=== PATIENT | male | born 1960 | race Caucasian/White ===

== ENCOUNTER 2019-07-09 00:16 | Emergency (ER) | payer MEDICARE, SELFPAY ==
[2019-07-09 00:19] VITALS: BP 146/99; PULSE 71; RESP 16; TEMP 36.5; O2SAT 95; BMI 36.6
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
[2019-07-09 01:05] VITALS: RESP 16
[2019-07-09] MEDS: oxyCODONE-APAP 5-325 mg Tablet 2 TAB PO (01:05)
[2019-07-09 01:10] LABS: Add Urine Microscopic? NO
[2019-07-09 01:13] LABS: Bilirubin Urine Neg (NEGATIVE); Blood Urine Neg (Negative); Glucose Urine UA 4+ (Normal); Ketones Urine Negative (Negative); Leukocyte Esterase Urine Negative (Negative); Nitrate Urine Negative (Negative); Protein Urine Neg (Negative); Urine Appearance Clear (CLEAR); Urine Color Yellow (Yellow); Urobilinogen Urine Norm (Negative); pH Urine 5 (5-7)
[2019-07-09] MEDS: ketorolac 60 mg/2 mL INJ IM (02:00)
== END 2019-07-09 02:38 | disposition home or self-care (01) ==
PROVIDERS: Emergency Provider Emergency Medicine; Family Provider Internal Medicine
DX: S32.2XXA Fracture of coccyx, initial encounter for closed fracture (principal); T14.8XXA Other injury of unspecified body region, initial encounter; Z87.891 Personal history of nicotine dependence; V49.3XXA Car occupant (driver) (passenger) injured in unspecified nontraffic accident, initial encounter
CPT/HCPCS: 70450; 71046; 72192; 81003; 96372; 99282; 99283; A9270; J1885

== ENCOUNTER 2020-01-03 08:01 | Emergency (ER) | payer MEDICARE, SELFPAY ==
[2020-01-03 08:05] VITALS: BMI 32.1
[2020-01-03 08:09] VITALS: BP 150/105; PULSE 73; RESP 18; TEMP 36.8; O2SAT 99
--- NOTE | 2020-01-03 08:18 | XR_ITS ---
WS: [id number] PORTABLE CHEST HISTORY: chest pain COMPARISON: 07/09/2019 Lungs are clear and well expanded. No pleural effusion or pneumothorax. Cardiac size: Normal. Mediastinum/Aorta: Normal mediastinum. No osseous abnormality seen. XR/XR chest 1V portable [id number] IMPRESSION: Unremarkable portable chest.
--- NOTE | 2020-01-03 08:18 | ECG_ITS ---
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 Measurements Intervals [place] Rate: 65 P: 18 MS: 165 QRS: 37 QRSD: 106 T: 9 QT: 422 QTc: 442 Interpretive Statements SINUS RHYTHM Compared to ECG 07/22/2018 10:35:58 No significant changes Electronically Signed On 01-03-2020 20:19:34 CDT by Genevieve Priest M.D. [id number]
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
[2020-01-03 08:23] LABS: Basophils % 0.5 %; Eosinophils # 0.1 10^3/uL (0.0-0.8); Eosinophils % 2.2 %; Hematocrit 41.2 % (42.0-52.0); Hemoglobin 13.5 g/dL (11.7-16.6); Lymphocytes # 2.4 10^3/uL (0.8-4.8); Lymphocytes % 40.7 %; Mean Corpuscular HGB Conc 32.8 g/dL (30.0-36.0); Mean Corpuscular Hemoglobin 31.6 pg (28.0-34.0); Mean Corpuscular Volume 96.5 fL (80-94); Mean Platelet Volume 10.9 fL (7.4-10.4); Monocytes # 0.6 10^3/uL (0.2-0.9); Monocytes % 9.7 %; Neutrophils % 46.6 %; Nucleated Red Blood Cells % 0 %; Platelet Count 258 10^3/cmm (130-400); Red Blood Count 4.27 10^6/uL (4.1-5.3); Red Cell Distribution Width 13.2 % (12.1-15.1); White Blood Count 5.8 10^3/uL (4.0-10.0)
[2020-01-03 08:25] VITALS: PULSE 67; RESP 19; O2SAT 99
[2020-01-03] MEDS: LORazepam 2 mg/mL INJ 1 mL 1 MG IVP ×2 (08:25→09:26)
[2020-01-03 08:43] LABS: Alanine Aminotransferase 28 U/L (0-41); Albumin Level 4.7 g/dL (3.5-5.2); Alkaline Phosphatase 51 IU/L (40-130); Anion Gap 15.9 (5-19); Aspartate Amino Transferase 22 U/L (0-40); Blood Urea Nitrogen 33 mg/dL (6-20); Carbon Dioxide 28 mmol/L (22-29); Chloride 96 mmol/L (98-107); Globulin 2.6 g/dL (1.3-4.6); Glomerular Filtration Rate 41.8 mL/min (90-130); Glucose 141 mg/dL (65-115); Osmolality Calculated 282 mOsm/kg (285-295); Potassium 3.9 mmol/L (3.5-5.1); Sodium 136 mmol/L (136-145); Total Bilirubin 0.2 mg/dL (0.15-1.2); Total Protein 7.3 g/dL (6.6-8.7)
[2020-01-03 08:46] LABS: Troponin(5th) Baseline 11 ng/L (0-15)
[2020-01-03 08:49] LABS: Creatinine Clr Calc Pharmacy 64.2024
[2020-01-03] MEDS: sodium chloride 0.9% 1,000 ML 999 ML IV (09:26)
[2020-01-03 09:27] VITALS: BP 142/95; PULSE 75; RESP 20; O2SAT 97
[2020-01-03 10:40] VITALS: BP 130/88; PULSE 73; RESP 19; O2SAT 99
[2020-01-03 11:06] LABS: Troponin 5 2HR 8.52 ng/L (0-15)
[2020-01-03 11:11] LABS: Troponin 5 2HR Delta -2.48 ABS# (0-10)
== END 2020-01-03 10:41 | disposition home or self-care (01) ==
PROVIDERS: Emergency Provider Physician Assistant; Family Provider Internal Medicine; PCP Internal Medicine
DX: F41.9 Anxiety disorder, unspecified (principal); R79.89 Other specified abnormal findings of blood chemistry; Z79.4 Long term (current) use of insulin; E11.9 Type 2 diabetes mellitus without complications; E78.5 Hyperlipidemia, unspecified; I10 Essential (primary) hypertension; Z87.891 Personal history of nicotine dependence
CPT/HCPCS: 12345; 36415; 71045; 80053; 84484; 85025; 93005; 96361; 96374; 96375; 96376; 99283; 99284; J2060; J7030

== ENCOUNTER 2020-01-08 02:44 | Emergency (ER) | payer MEDICARE, SELFPAY ==
[2020-01-08 02:51] VITALS: BP 147/113; PULSE 79; RESP 24; TEMP 36.7; O2SAT 97; BMI 32.1
--- NOTE | 2020-01-08 02:55 | W.ED.ANXIETY ---
HPI - Anxiety General: Chief Complaint: Anxiety Stated Complaint: anxiety Time Seen by Provider: 01/08/20 02:51 History of Present Illness: HPI narrative: 59-year-old male who lost his to cancer 3 weeks ago. He states that since that time, he wakes frequently in the middle the night, and a start, ready to take care of her as he did prior to her . When he realizes she is not there, he has quite a bit of trouble going back to sleep. He has symptoms of chest pressure. Some shortness of breath, and feeling like the martinez are closing in . Tonight his symptoms were worse. He was prescribed 1 mg of lorazepam, but had been taking 2 mg twice daily, and took his last dose at 9 PM tonight. He states that it may have helped a bit, but not much. He continues to experience the same symptoms. He denies significant cough, fever, Cetera. He notes that he vomits at times, and attributes it to his anxiety, and feels better after he vomits. He did that once in the last 24 hours. MD complaint: anxiety, heart racing, shortness of breath and other (chest pressure) Onset (ago): hour(s) Symptoms: dyspnea, chest pain and palpitations Severity: moderate Quality: intermittent Place: home History of similar episodes: Yes Relieving factors: nothing Exacerbating factors: nothing Associated symptoms: Reports chest pain (pressure), nausea, short of breath and vomiting; Deny chills, confusion or headache(s) Review of Systems Const: Denies: chills ENMT: Denies: swelling of lips/tongue or sinus pain Card: Reports: chest pain (pressure) Resp: Reports: dyspnea; Denies: productive cough, non-productive cough or wheezing GI: Reports: nausea and vomiting : Denies: difficulty urinating or hematuria Musc: Denies: joint warmth Skin/Breast: Denies: rash or erythema Neuro: Denies: headache(s) or confusion Psych: Reports: anxiety; Denies: visual hallucinations or auditory hallucinations PFS ED PFSH: Medical History (Updated 01/08/20 @ 05:20 by Edwin Reid DO) Diabetes Diarrhea Diastasis recti Hemorrhoids History of meningitis Hyperlipidemia Hypertension Migraines Positive FIT (fecal immunochemical test) Umbilical hernia Surgical History History of arthroscopic knee surgery Family History Father Hypertension Diabetes Denies family history of Anesthesia complication Bleeding disorder Social History Smoking and tobacco status: former smoker Physical Exam Const: GENERAL APPEARANCE: well developed and anxious ORIENTATION/CONSCIOUSNESS: Yes oriented to person, Yes oriented to place and Yes oriented to time HENMT: COMMON NORMALS: normocephalic, external ears normal and Normal external nose present HEAD & SCALP: normocephalic FACE & SINUS: normal facial exam NOSE: Normal external nose present and No nasal discharge present EXTERNAL EAR: Yes external ears normal Eye: COMMON NORMALS: Equal, round and reactive pupils present, EOMs intact bilaterally and conjunctivae normal EYELID: eyelids normal CONJUNCTIVA: Yes conjunctivae normal PUPIL: Yes Equal, round and reactive pupils present Neck/C-Spine: GENERAL: No tracheal deviation Chest: COMMONS NORMALS: normal inspection of the chest CHEST: No tenderness Resp: COMMON NORMALS: clear to auscultation bilaterally EFFORT & INSPECTION: No tachypneic, No respiratory distress, No retractions, No uses accessory muscles and No tracheal deviation AUSCULTATION: clear to auscultation bilaterally, no rhonchi, no wheezes and lung sounds not diminished Cardio: COMMON NORMALS: regular rate and regular rhythm RATE: regular rate RHYTHM: regular rhythm HEART SOUNDS: no murmurs PERIPHERAL PULSES: radial pulses present GI: INSPECTION: No abdominal distension AUSCULTATION: No Hyperactive bowel sounds present and No Hypoactive bowel sounds present PALPATION: No Guarding due to palpation present (GI) and No Rigid due to palpation PERCUSSION: no dullness to percussion and no tympanic to percussion Neuro: SENSORIUM/ORIENTATION: Yes oriented to person, Yes oriented to place and Yes oriented to time Psych: COMMON NORMALS: Normal thought process present, speech normal, denies hallucinations, denies homicidal ideation and denies suicidal ideation APPEARANCE: Yes grossly normal ACTIVITY/MOTOR BEHAVIOR: Yes appropriate eye contact, No psychomotor agitation and No psychomotor slowing SPEECH: Yes normal speech MOOD & AFFECT: Yes anxious THOUGHT PROCESS: Normal thought process present THOUGHT CONTENT: No Suicidality present, No Homicidality present, No delusions and No Hallucination(s) present ATTENTION/CONCENTRATION: Yes attention grossly intact and Yes concentration grossly intact MEMORY/COGNITION: Yes memory grossly intact INSIGHT: Good insight present (Psych) JUDGEMENT: Good judgement present (Psych) Skin: COMMON NORMALS: no rashes or lesions noted GENERAL SKIN EXAM: no rashes or lesions noted Course Vital Signs: Vital signs: Vital Signs Temperature 98.0 F 01/08/20 02:51 Pulse Rate 64 01/08/20 04:52 Respiratory Rate 16 01/08/20 04:52 Blood Pressure 124/76 01/08/20 04:52 Pulse Oximetry 98 01/08/20 04:52 MDM - Anxiety MDM Narrative: Medical decision making narrative: 59-year-old male with no prior history of coronary disease. His heart score remains of 3. His chest x-ray is negative. His EKG shows a normal sinus rhythm with a rate in the 60s and a normal axis. There are no ST changes. His creatinine is fallen from 1.7-1.3. His troponin remains normal. I, as he, believe that his symptoms are primarily anxiety. There may be an element of PTSD from taking care of his through her sickness. The patient admits to taking 2 mg of Ativan at a time instead of 1. He took his last dose at 9 PM last night. There may be some element of benzodiazepine withdrawal in his presentation this morning. After 2 mg of Ativan IV here, he was still quite anxious. After 3 mg of Haldol here, he is resting comfortably. He has an appointment this coming week with his primary care physician. Hopefully they can talk about treatment of his anxiety level. For now, we will put him on scheduled Atarax, and give him Xanax for breakthrough anxiety. Lab Data: Labs: Lab Results 01/08/20 01/08/20 01/08/20 Range/Units 03:39 04:30 04:30 WBC 8.5 (4.0-10.0) 10^3/ uL RBC 3.99 L (4.1-5.3) 10^6/u L Hgb 12.7 (11.7-16.6) g/dL Hct 38.3 L (42.0-52.0) % MCV 96.0 H (80-94) fL MCH 31.8 (28.0-34.0) pg MCHC 33.2 (30.0-36.0) g/dL RDW 12.9 (12.1-15.1) % Plt Count 228 (130-400) 10^3/c mm MPV 11.2 H (7.4-10.4) fL Neut % (Auto) 51.3 % Lymph % (Auto) 32.5 % [place] % (Auto) 10.7 % Eos % (Auto) 4.0 % Baso % (Auto) 0.7 % Neut # (Auto) 4.34 (1.8-7.7) 10^3/u L Lymph # (Auto) 2.8 (0.8-4.8) 10^3/u L [place] # (Auto) 0.9 (0.2-0.9) 10^3/u L Eos # (Auto) 0.3 (0.0-0.8) 10^3/u L Baso # (Auto) 0.1 (0.0-0.1) 10^3/u L Nucleated RBC % (a uto) 0 % Nucleated RBCs # 0.0 /100WBC Sodium 137 (136-145) mmol/L Potassium 3.5 (3.5-5.1) mmol/L Chloride 101 (98-107) mmol/L Carbon Dioxide 25 (22-29) mmol/L Anion Gap 14.5 (5-19) BUN 29 H (6-20) mg/dL Creatinine 1.3 H (0.7-1.2) mg/dL GFR Calculation 56.9 L (90-130) mL/min Glucose 150 H (65-115) mg/dL POC Glucose 148 (70-110) mg/dL Calculated Osmolal ity 284 L (285-295) mOsm/k g Calcium 9.0 (8.5-10.5) mg/dL Total Bilirubin 0.3 (0.15-1.2) mg/dL AST 26 (0-40) U/L ALT 28 (0-41) U/L Alkaline Phosphata se 60 (40-130) IU/L Troponin T Gen 5 n g/L (0-15) ng/L Total Protein 7.0 (6.6-8.7) g/dL Albumin 4.2 (3.5-5.2) g/dL Globulin 2.8 (1.3-4.6) g/dL 01/08/20 Range/Units 04:30 WBC (4.0-10.0) 10^3/ uL RBC (4.1-5.3) 10^6/u L Hgb (11.7-16.6) g/dL Hct (42.0-52.0) % MCV (80-94) fL MCH (28.0-34.0) pg MCHC (30.0-36.0) g/dL RDW (12.1-15.1) % Plt Count (130-400) 10^3/c mm MPV (7.4-10.4) fL Neut % (Auto) % Lymph % (Auto) % [place] % (Auto) % Eos % (Auto) % Baso % (Auto) % Neut # (Auto) (1.8-7.7) 10^3/u L Lymph # (Auto) (0.8-4.8) 10^3/u L [place] # (Auto) (0.2-0.9) 10^3/u L Eos # (Auto) (0.0-0.8) 10^3/u L Baso # (Auto) (0.0-0.1) 10^3/u L Nucleated RBC % (a uto) % Nucleated RBCs # /100WBC Sodium (136-145) mmol/L Potassium (3.5-5.1) mmol/L Chloride (98-107) mmol/L Carbon Dioxide (22-29) mmol/L Anion Gap (5-19) BUN (6-20) mg/dL Creatinine (0.7-1.2) mg/dL GFR Calculation (90-130) mL/min Glucose (65-115) mg/dL POC Glucose (70-110) mg/dL Calculated Osmolal ity (285-295) mOsm/k g Calcium (8.5-10.5) mg/dL Total Bilirubin (0.15-1.2) mg/dL AST (0-40) U/L ALT (0-41) U/L Alkaline Phosphata se (40-130) IU/L Troponin T Gen 5 n g/L 7 (0-15) ng/L Total Protein (6.6-8.7) g/dL Albumin (3.5-5.2) g/dL Globulin (1.3-4.6) g/dL Discharge Plan Discharge Patient Disposition: Home Clinical Impression: Anxiety Condition: Stable Prescriptions: New hydroxyzine HCl 25 mg tablet 25 mg PO TID Qty: 60 RF: 0 alprazolam 1 mg tablet 1 mg PO TID PRN (Reason: anxiety) Qty: 20 RF: 0 No Action lisinopril 20 mg tablet 20 mg PO BID RF: 0 Farxiga 10 mg tablet 10 mg PO DAILY RF: 0 Trulicity 1.5 mg/0.5 mL pen injector 1.5 mg SUBCUT Q7D RF: 0 chlorthalidone 25 mg tablet 25 mg PO DAILY RF: 0 diltiazem HCl 240 mg capsule,ext.rel 24h degradable 480 mg PO DAILY RF: 0 carvedilol 25 mg tablet 50 mg PO BID RF: 0 hydralazine 25 mg tablet 25 mg PO BID RF: 0 atorvastatin 80 mg tablet 80 mg PO DAILY RF: 0 Multiple Vitamins Tablet 1 tab PO DAILY RF: 0 Protonix 40 mg Tablet,Delayed Release (Dr/Ec) 40 mg PO DAILY RF: 0 ibuprofen 200 mg Tablet 600 mg PO PRN RF: 0 albuterol sulfate 90 mcg/actuation HFA aerosol inhaler 2 puff INHALATION Q4H PRN (Reason: Shortness Of Breath) RF: 0 Ibuprofen PM 200-38 mg Tablet 3 tab PO BEDTIME PRN (Reason: unknown) RF: 0 melatonin 10 mg Tablet 30 mg PO BEDTIME RF: 0 Fish Oil 1 cap PO DAILY RF: 0 Ativan 1 mg tablet 1 mg PO Q8H PRN (Reason: anxiety) Qty: 20 RF: 0 Discharge Orders: Discharge Order (Routine); Ordered 01/08/20 Ordered By: Edwin Reid Referrals: BHAVANA HILARIO DO [Primary Care Provider] - 1-3 days Discharge Diet: Usual diet Discharge Activity: Increase activity as tolerated Patient Instructions: Anxiety (ED) Activity Restrictions/Additional Instructions: Return for worsening symptoms despite treatment. Take the hydroxyzine 3 times daily scheduled. You may take the alprazolam as needed for breakthrough anxiety, especially at night. See your doctor this coming week as scheduled for follow-up. Coding Level of Care Code ED Enrollment Clerk for [facility] Fwd Exam Comprehensive
--- NOTE | 2020-01-08 03:12 | XRR_ITS ---
PROCEDURE INFORMATION: Exam: XR Chest, 1 View Exam date and time: 01/08/2020 3:25 AM Age: 59 years old Clinical indication: Shortness of breath; Additional info: SOB TECHNIQUE: Imaging protocol: XR of the chest Views: 1 view. COMPARISON: CR XR chest 1V portable [id number] 01/03/2020 8:24 AM FINDINGS: Lungs: Unremarkable. No consolidation. Pleural space: Unremarkable. No pleural effusion. No pneumothorax. Heart/Mediastinum: Unremarkable. No cardiomegaly. Bones/joints: Unremarkable. XR/XR chest 1V portable [id number] IMPRESSION: No acute findings.
--- NOTE | 2020-01-08 03:14 | ECG_ITS ---
[facility] Test Date: 2020-01-08 Pat Name: Milan Hua Department: Room: Gender: Male Global Program Director: : 1960 Requested By: Edwin Suero Order Number: [id number] Elliott MD: Onofre Crawford M.D. Measurements Intervals [place] Rate: 73 P: 49 AK: 169 QRS: 39 QRSD: 109 T: 35 QT: 414 QTc: 459 Interpretive Statements SINUS RHYTHM Compared to ECG 01/03/2020 08:08:37 No significant changes Electronically Signed On 01-08-2020 11:56:40 CDT by Onofre Crawford M.D. [id number]
[2020-01-08 03:42] LABS: Glucose Point of Care 148 mg/dL (70-110)
[2020-01-08] MEDS: LORazepam 2 mg/mL INJ 1 mL IVP (03:43)
[2020-01-08] MEDS: ondansetron 2 mg/ML SDV 2 mL 4 MG IVP (04:00)
[2020-01-08 04:39] LABS: Basophils # 0.1 10^3/uL (0.0-0.1); Basophils % 0.7 %; Eosinophils # 0.3 10^3/uL (0.0-0.8); Hematocrit 38.3 % (42.0-52.0); Hemoglobin 12.7 g/dL (11.7-16.6); Lymphocytes # 2.8 10^3/uL (0.8-4.8); Lymphocytes % 32.5 %; Mean Corpuscular HGB Conc 33.2 g/dL (30.0-36.0); Mean Corpuscular Hemoglobin 31.8 pg (28.0-34.0); Mean Platelet Volume 11.2 fL (7.4-10.4); Monocytes # 0.9 10^3/uL (0.2-0.9); Monocytes % 10.7 %; Neutrophils # 4.34 10^3/uL (1.8-7.7); Neutrophils % 51.3 %; Nucleated Red Blood Cells % 0 %; Platelet Count 228 10^3/cmm (130-400); Red Blood Count 3.99 10^6/uL (4.1-5.3); Red Cell Distribution Width 12.9 % (12.1-15.1); White Blood Count 8.5 10^3/uL (4.0-10.0)
[2020-01-08] MEDS: haloperidol inj 5 mg/mL INJ 1 mL 3 MG IVP (04:44)
[2020-01-08 04:52] VITALS: BP 124/76; PULSE 64; RESP 16; O2SAT 98
[2020-01-08 04:57] LABS: Alanine Aminotransferase 28 U/L (0-41); Albumin Level 4.2 g/dL (3.5-5.2); Alkaline Phosphatase 60 IU/L (40-130); Anion Gap 14.5 (5-19); Aspartate Amino Transferase 26 U/L (0-40); Blood Urea Nitrogen 29 mg/dL (6-20); Carbon Dioxide 25 mmol/L (22-29); Chloride 101 mmol/L (98-107); Globulin 2.8 g/dL (1.3-4.6); Glomerular Filtration Rate 56.9 mL/min (90-130); Glucose 150 mg/dL (65-115); Osmolality Calculated 284 mOsm/kg (285-295); Potassium 3.5 mmol/L (3.5-5.1); Sodium 137 mmol/L (136-145); Total Bilirubin 0.3 mg/dL (0.15-1.2)
[2020-01-08 05:11] LABS: Troponin T (5th) Once 7 ng/L (0-15)
--- NOTE | 2020-01-08 05:24 | PC.NURSE ---
Pt resting comfortable at this time
== END 2020-01-08 06:01 | disposition home or self-care (01) ==
PROVIDERS: Emergency Provider Emergency Medicine; PCP Internal Medicine
DX: F41.9 Anxiety disorder, unspecified (principal); Z79.4 Long term (current) use of insulin; E11.9 Type 2 diabetes mellitus without complications; E78.5 Hyperlipidemia, unspecified; I10 Essential (primary) hypertension; Z87.891 Personal history of nicotine dependence
CPT/HCPCS: 12345; 36416; 71045; 80053; 82962; 84484; 85025; 93005; 96374; 96375; 99282; 99283; J1630; J2060; J2405

== ENCOUNTER 2020-10-19 11:37 | Emergency (ER) | payer MEDICARE, SELFPAY ==
--- NOTE | 2020-10-19 | XRR_ITS ---
Ordering Provider/Ordering MD: Bud Whitney MD Date of Service: 10/19/20 Procedure(s): XR pelvis 1-2V* [id number] Accession Number(s): [id number] Report Number: [id number] PROCEDURE INFORMATION: Exam: XR Pelvis Exam date and time: 10/19/2020 12:33 PM Age: 60 years old Clinical indication: Injury or trauma; Fall; Blunt trauma (contusions or hematomas); Right; Hip TECHNIQUE: Imaging protocol: XR pelvis. Views: 1 or 2 view. COMPARISON: CR XR hip RT 2-3V wo/w pel* [id number] 10/19/2020 12:43 PM FINDINGS: Bones/joints: Unremarkable. No acute fracture. Soft tissues: Unremarkable. Vasculature: Moderate calcified peripheral vascular disease. XR/XR pelvis 1-2V* [id number] IMPRESSION: 1. No acute findings. 2. If pain persists, CT may be helpful to rule out occult pathology if clinically indicated. Dictated By: Tuan Otto MD Signed By: Tuan Otto MD Signed Date/Time: 10/19/20 1402 DD/ 1400 [facility]
[2020-10-19 11:56] VITALS: BP 112/72; PULSE 73; RESP 18; TEMP 36.2; O2SAT 96; BMI 30.8
--- NOTE | 2020-10-19 12:01 | XRR_ITS ---
PROCEDURE INFORMATION: Exam: XR Right Hip Exam date and time: 10/19/2020 12:33 PM Age: 60 years old Clinical indication: Pain and injury or trauma; Fall; Blunt trauma (contusions or hematomas); Hip pain; Right hip TECHNIQUE: Imaging protocol: XR Right hip. Views: 2 or 3 views hip with pelvis when performed. COMPARISON: CT pelvis wo con [id number] 07/09/2019 1:37 AM FINDINGS: Bones/joints: No fracture or dislocation. Patent SI joints. Soft tissues: No acute finding. Vasculature: Arterial calcifications. XR/XR hip RT 2-3V wo/w pel* [id number] IMPRESSION: No fracture.
--- NOTE | 2020-10-19 12:01 | XRR_ITS ---
PROCEDURE INFORMATION: Exam: XR Sacrum and Coccyx, 2 or More Views Exam date and time: 10/19/2020 12:33 PM Age: 60 years old Clinical indication: Injury or trauma; Fall; Blunt trauma (contusions or hematomas) TECHNIQUE: Imaging protocol: XR of the sacrum and coccyx, 2 or more views. COMPARISON: CR (PELVIS, ) 10/19/2020 12:43 PM FINDINGS: Bones/joints: Normal. No acute fracture. Soft tissues: Normal. XR/XR sacrum coccyx min 2V [id number] IMPRESSION: No acute findings.
--- NOTE | 2020-10-19 12:01 | XRR_ITS ---
PROCEDURE INFORMATION: Exam: XR Right Femur Exam date and time: 10/19/2020 12:33 PM Age: 60 years old Clinical indication: Injury or trauma; Fall; Blunt trauma; Thigh or upper leg; Right TECHNIQUE: Imaging protocol: XR Right femur. Views: 2 views. Distal femur not visualized on these films. Distal femur evaluated on right knee films of the same day.. COMPARISON: No relevant prior studies available. FINDINGS: Bones/joints: Distal femur evaluated on right knee views of the same day. Soft tissues: Unremarkable. Vasculature: Moderate calcified peripheral vascular disease. XR/XR femur RT min 2V* [id number] IMPRESSION: 1. Moderate calcified peripheral vascular disease. 2. Distal femur evaluated on right knee views of the same day.
--- NOTE | 2020-10-19 12:01 | XRR_ITS ---
PROCEDURE INFORMATION: Exam: XR Right Knee Exam date and time: 10/19/2020 12:33 PM Age: 60 years old Clinical indication: Injury or trauma; Fall; Blunt trauma; Knee; Right TECHNIQUE: Imaging protocol: XR Right knee. Views: 3 views. COMPARISON: No relevant prior studies available. FINDINGS: Bones/joints: Mild lateral knee compartment primary osteoarthritis. 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 Soft tissues: Normal. Vasculature: Severe calcified peripheral vascular disease. XR/XR knee RT 3V* [id number] IMPRESSION: No acute findings.
--- NOTE | 2020-10-19 12:01 | XRR_ITS ---
PROCEDURE INFORMATION: Exam: XR Pelvis Exam date and time: 10/19/2020 12:33 PM Age: 60 years old Clinical indication: Injury or trauma; Fall; Blunt trauma (contusions or hematomas); Right; Hip TECHNIQUE: Imaging protocol: XR pelvis. Views: 1 or 2 view. COMPARISON: CR XR hip RT 2-3V wo/w pel* [id number] 10/19/2020 12:43 PM FINDINGS: Bones/joints: Unremarkable. No acute fracture. Soft tissues: Unremarkable. Vasculature: Moderate calcified peripheral vascular disease.
--- NOTE | 2020-10-19 12:01 | XRR_ITS ---
PROCEDURE INFORMATION: Exam: XR Thoracic Spine Exam date and time: 10/19/2020 12:33 PM Age: 60 years old Clinical indication: Injury or trauma; Fall; Blunt trauma (contusions or hematomas) TECHNIQUE: Imaging protocol: XR of the thoracic spine. Views: 3 views. COMPARISON: No relevant prior studies available. FINDINGS: Bones/joints: Mild thoracic spondylosis. Soft tissues: Unremarkable. Vasculature: Calcification of the thoracic aorta and/or great vessels consistent with atherosclerotic vessel disease. XR/XR thoracic spine 3V* [id number] IMPRESSION: No acute findings.
--- NOTE | 2020-10-19 12:02 | XRR_ITS ---
PROCEDURE INFORMATION: Exam: XR Lumbosacral Spine Exam date and time: 10/19/2020 12:33 PM Age: 60 years old Clinical indication: Injury or trauma; Fall; Blunt trauma (contusions or hematomas) TECHNIQUE: Imaging protocol: XR of the lumbosacral spine. Views: 2 or 3 views. COMPARISON: CT pelvis [facility] [id number] 07/09/2019 1:37 AM FINDINGS: Bones/joints: Mild lower thoracic spondylosis. Soft tissues: Unremarkable. Vasculature: Calcification of the abdominal aorta and/or iliac arteries consistent with atherosclerotic vessel disease. XR/XR lumbar spine 2-3V* [id number] IMPRESSION: No acute findings.
[2020-10-19 12:03] VITALS: RESP 15
--- NOTE | 2020-10-19 12:03 | XRR_ITS ---
PROCEDURE INFORMATION: Exam: XR Chest Exam date and time: 10/19/2020 12:33 PM Age: 60 years old Clinical indication: Injury or trauma; Fall; Blunt trauma (contusions or hematomas); Additional info: Fall, right sided pain TECHNIQUE: Imaging protocol: XR of the chest. Views: 1 view. COMPARISON: CR XR chest 1V portable [id number] 01/08/2020 3:18 AM FINDINGS: Lungs: Unremarkable. No consolidation. Pleural spaces: Unremarkable. No pleural effusion. No pneumothorax. Heart/Mediastinum: Unremarkable. No cardiomegaly. Bones/joints: Moderate thoracic spondylosis. XR/XR chest 1V portable [id number] IMPRESSION: No acute findings.
--- NOTE | 2020-10-19 12:03 | XRR_ITS ---
PROCEDURE INFORMATION: Exam: XR Right Ribs Exam date and time: 10/19/2020 12:33 PM Age: 60 years old Clinical indication: Injury or trauma; Fall; Rib area; Blunt trauma (contusions or hematomas); Additional info: Right rib pain/ fall TECHNIQUE: Imaging protocol: XR Right ribs. Views: 2 views. COMPARISON: CR XR chest 1V portable [id number] 10/19/2020 12:36 PM FINDINGS: Bones/joints: Mild thoracic spondylosis. Lungs: Stable right calcified hilar nodes and/or mediastinal nodes and/or lung nodules consistent with old granulomatous disease. Soft tissues: Normal. XR/XR ribs RT 2V* [id number] IMPRESSION: No acute findings.
--- NOTE | 2020-10-19 12:05 | W.ED.FALL ---
HPI - Fall General: Chief Complaint: Fall Stated Complaint: back pain/r leg pain s/p fall Time Seen by Provider: 10/19/20 11:57 History of Present Illness: HPI Narrative: The patient is a 60-year-old male who comes in after a fall. He was using a pressure sprayer and slipped and fell on his backside and down 3 steps. He says he said surgery on his right knee before and complains of right knee, thigh, tailbone, right hip, low back, upper back, and right rib pain. He has a small abrasion to his right cheek. He is up-to-date on his tetanus. complaint: fall Fall from: standing Place fall occurred: home Loss of consciousness: None Prolonged down time: no Context: tripped/slipped Severity: moderate Quality: sharp Associated symptoms-after fall: Reports no associated symptoms; Denies abdominal pain, chest pain, confusion, difficulty walking, headache(s) or neck pain Review of Systems General: Reports: 10 or more systems reviewed and unremarkable except in HPI and below Const: Denies: fatigue Eyes: Denies: change in vision, blurry vision or eye redness ENMT: Denies: throat pain, swelling of lips/tongue, ear or mastoid pain or nasal congestion Card: Denies: chest pain, palpitations, irregular heart rhythm, edema, dyspnea on exertion or orthopnea Resp: Denies: dyspnea, productive cough or non-productive cough GI: Denies: abdominal pain, diarrhea or GI cramping : Denies: flank pain, urinary frequency or urinary urgency Musc: Reports: back pain, extremity pain and joint pain; Denies: neck pain, joint redness, limited range of motion or muscle weakness Skin/Breast: Denies: rash, pruritus, erythema, skin pain or skin tenderness Neuro: Denies: headache(s), numbness in extremities, weakness in extremities, sensory changes, difficulty walking, dizziness, confusion or Slurred speech present Psych: Denies: anxiety or depression Endo: Denies: polyuria All/Imm: Denies: urticaria, throat swelling or tongue swelling [facility] ED PFSH: Medical History (Updated 10/19/20 @ 15:01 by Bud Whitney MD) Diabetes Diarrhea Diastasis recti Hemorrhoids History of meningitis Hyperlipidemia Hypertension Migraines Positive FIT (fecal immunochemical test) Umbilical hernia Surgical History History of arthroscopic knee surgery Family History Father Hypertension Diabetes Denies family history of Anesthesia complication Bleeding disorder Social History Smoking and tobacco status: former smoker Physical Exam Const: COMMON NORMALS: no acute distress, average body habitus, patient oriented x3, no limitations, healthy appearing, alert and well nourished GENERAL APPEARANCE: cooperative, comfortable, well kempt and well developed ORIENTATION/CONSCIOUSNESS: Yes awake, Yes oriented to person, Yes oriented to place and Yes oriented to time HENMT: COMMON NORMALS: normocephalic, external ears normal and Normal external nose present HEAD & SCALP: normal to inspection and normocephalic NOSE: Normal external nose present EXTERNAL EAR: Yes external ears normal MOUTH: Normal oral and palatal mucosa present THROAT: posterior oropharynx normal Eye: COMMON NORMALS: Equal, round and reactive pupils present and EOMs intact bilaterally GENERAL EYE: appearance normal, both eyes and all related structures PUPIL: Yes Equal, round and reactive pupils present Neck/C-Spine: COMMON NORMALS: full ROM, no lymphadenopathy, no meningeal signs and no JVD GENERAL: Yes normal visual inspection Lymph: LYMPHATIC: no lymphadenopathy noted Chest: COMMONS NORMALS: normal inspection of the chest and normal palpation of entire chest wall Resp: COMMON NORMALS: normal respiratory effort, No retractions, No use of accessory muscles, clear to auscultation bilaterally and percussion normal EFFORT & INSPECTION: Yes able to speak in complete sentences AUSCULTATION: clear to auscultation bilaterally PERCUSSION: percussion normal Cardio: COMMON NORMALS: no JVD, regular rate, regular rhythm, S1 normal heart sound present, S2 normal heart sound present and Peripheral pulses 2+ throughout RATE: regular rate RHYTHM: regular rhythm HEART SOUNDS: S1 normal heart sound present and S2 normal heart sound present PERIPHERAL PULSES: Peripheral pulses 2+ throughout GI: COMMON NORMALS: Normal to inspection, nondistended, normoactive bowel sounds present, Soft to palpation, non-tender and no masses INSPECTION: Yes normal to inspection PALPATION: Yes Soft to palpation : COMMON NORMALS: Yes no CVA tenderness BLADDER/KIDNEY EXAM: Yes no CVA tenderness Back/Pelvis: COMMON NORMALS: no CVA tenderness, thoracic and lumbar spine normal to inspection, no thoracic nor lumbar tenderness and thoraco-lumbar ROM normal OTHER: Patient has tenderness to his coccyx, left hip, lumbar paraspinal musculature, no significant bony tenderness. He also has thoracic paraspinal muscular tenderness. No cervical tenderness. Extremity: COMMON NORMALS: normal to inspection, full ROM, capillary refill normal, no joint enlargement and no pedal edema NARRATIVE EXTREMITY EXAM: Tenderness to right knee and thigh. Major ligaments intact in the knee. He is walking on it. GENERAL: Yes normal exam except as noted Neuro: COMMON NORMALS: patient oriented x3, CN's II-XII intact bilaterally, moves all extremities, no focal motor deficits, no sensory deficits noted and gait normal SENSORIUM/ORIENTATION: Yes alert, Yes oriented to person, Yes oriented to place and Yes oriented to time MENINGEAL SIGNS: Yes no meningeal signs Psych: COMMON NORMALS: mental status grossly normal, Normal thought process present, cooperative, normal affect and speech normal APPEARANCE: Yes well kempt ATTITUDE: Yes calm SPEECH: Yes normal speech THOUGHT PROCESS: Normal thought process present Skin: COMMON NORMALS: no rashes or lesions noted NARRATIVE SKIN EXAM: small abrasion to right cheek. Superficial GENERAL SKIN EXAM: no rashes or lesions noted Course Vital Signs: Vital signs: Vital Signs Temperature 97.1 F L 10/19/20 11:56 Pulse Rate 73 10/19/20 11:56 Respiratory Rate 15 10/19/20 14:03 Blood Pressure 112/72 10/19/20 11:56 Pulse Oximetry 96 10/19/20 11:56 MDM - Fall MDM Narrative: Medical decision making narrative: The patient came in after a slip and fall while using a pressure sprayer and he slid down a few stairs. X-rays of painful areas were taken and were normal. Did show vascular disease. He is on a statin. Recommended he follow-up with his primary care in a week. ER with worsening symptoms at any time. Discharge Plan Discharge Patient Disposition: Home Clinical Impression: Contusion Condition: Stable Prescriptions: No Action lisinopril 20 mg tablet 20 mg PO BID RF: 0 Farxiga 10 mg tablet 10 mg PO DAILY RF: 0 Trulicity 1.5 mg/0.5 mL pen injector 1.5 mg SUBCUT Q7D RF: 0 chlorthalidone 25 mg tablet 25 mg PO DAILY RF: 0 diltiazem HCl 240 mg capsule,ext.rel 24h degradable 480 mg PO DAILY RF: 0 carvedilol 25 mg tablet 50 mg PO BID RF: 0 hydralazine 25 mg tablet 25 mg PO BID RF: 0 atorvastatin 80 mg tablet 80 mg PO DAILY RF: 0 hydroxyzine HCl 25 mg tablet 25 mg PO TID Qty: 60 RF: 0 alprazolam 1 mg tablet 1 mg PO TID PRN (Reason: anxiety) Qty: 20 RF: 0 Multiple Vitamins Tablet 1 tab PO DAILY RF: 0 Protonix 40 mg Tablet,Delayed Release (Dr/Ec) 40 mg PO DAILY RF: 0 ibuprofen 200 mg Tablet 600 mg PO PRN RF: 0 albuterol sulfate 90 mcg/actuation HFA aerosol inhaler 2 puff INHALATION Q4H PRN (Reason: Shortness Of Breath) RF: 0 Ibuprofen PM 200-38 mg Tablet 3 tab PO BEDTIME PRN (Reason: unknown) RF: 0 melatonin 10 mg Tablet 30 mg PO BEDTIME RF: 0 Fish Oil 1 cap PO DAILY RF: 0 Ativan 1 mg tablet 1 mg PO Q8H PRN (Reason: anxiety) Qty: 20 RF: 0 Discharge Orders: Discharge ED (Routine); Ordered 10/19/20 Ordered By: Bud Whitney Referrals: Nancy Harris DO [Primary Care Provider] - Discharge Diet: Advance as tolerated Discharge Activity: Limit activity as instructed Patient Instructions: Contusion in Adults (ED), Opioid Safety Activity Restrictions/Additional Instructions: You likely have deep bruises from falling. Please take ibuprofen to help with your pain. Follow-up with your primary care physician in a week and get a MRI if you are still in pain of any areas that hurt. Return to the ER with worsening symptoms at any time. Avoid activities likely to injure yourself again and worsen your pain. 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
[2020-10-19 14:03] VITALS: RESP 15
[2020-10-19] MEDS: ketorolac 30 mg/mL INJ IM (14:44)
[2020-10-19 15:10] VITALS: RESP 15
== END 2020-10-19 15:11 | disposition home or self-care (01) ==
PROVIDERS: Emergency Provider Family Medicine; PCP Internal Medicine
DX: M54.9 Dorsalgia, unspecified (principal); E11.9 Type 2 diabetes mellitus without complications; Z79.899 Other long term (current) drug therapy; E78.5 Hyperlipidemia, unspecified; I10 Essential (primary) hypertension; Z87.891 Personal history of nicotine dependence
CPT/HCPCS: 71045; 71100; 72072; 72100; 72170; 72220; 73502; 73552; 73562; 96372; 99283; J1885

== ENCOUNTER → 2020-11-25 10:18 | Outpatient (BNVA) | payer MEDICARE, SELFPAY | PROVIDERS: PCP Internal Medicine; Referring Provider Nurse Practitioner Family; Visit Provider Urology | DX: N52.9 Male erectile dysfunction, unspecified (principal); Z12.5 Encounter for screening for malignant neoplasm of prostate | CPT/HCPCS: 81003; 84403; G0103 ==

== ENCOUNTER 2021-08-20 10:50 | Emergency (ER) | payer MEDICARE, SELFPAY ==
[2021-08-20 11:51] VITALS: BP 159/86; PULSE 78; RESP 15; TEMP 36.7; O2SAT 97; BMI 29.5
--- NOTE | 2021-08-20 13:18 | CTR_ITS ---
PROCEDURE INFORMATION: Exam: CT Abdomen And Pelvis With Contrast Exam date and time: 08/20/2021 3:31 PM Age: 60 years old Clinical indication: Abdominal pain; Additional info: Abdominal pain, n/v and constipated TECHNIQUE: Imaging protocol: Computed tomography of the abdomen and pelvis with contrast. Radiation optimization: All CT scans at this facility use at least one of these dose optimization techniques: automated exposure control; mA and/or kV adjustment per patient size (includes targeted exams where dose is matched to clinical indication); or iterative reconstruction. Contrast material: OMNI 300; Contrast volume: 95 ml; Contrast route: INTRAVENOUS (IV); COMPARISON: CT pelvis wo con [id number] 07/09/2019 1:37 AM RADIATION DOSE METRICS: Total DLP (mGy-cm): 1909.66 FINDINGS: Lungs: Emphysematous changes. Right lower lobe atelectasis. Heart: Cardiomegaly. Liver: Normal. No mass. Gallbladder and bile ducts: Normal. No calcified stones. No ductal dilation. Pancreas: Normal. No ductal dilation. Spleen: Normal. No splenomegaly. Adrenal glands: Normal. No mass. Kidneys and ureters: Normal. No hydronephrosis. Stomach and bowel: Moderate fluid throughout the colon with some mild diffuse wall thickening suggestive of a colitis. Additionally a focal area of narrowing is seen in the mid sigmoid colon perhaps due to nondistention, however, consider correlation with endoscopy to exclude in underlying lesion in this area causing narrowing. Appendix: No evidence of appendicitis. Intraperitoneal space: Unremarkable. No free air. No significant fluid collection. Vasculature: Scattered atherosclerotic calcifications. Lymph nodes: Unremarkable. No enlarged lymph nodes. Urinary bladder: Unremarkable as visualized. Reproductive: Unremarkable as visualized. Bones/joints: Unremarkable. No acute fracture. Soft tissues: Small umbilical hernia containing omentum without bowel or inflammation. CT/CT abdomen pelvis w con* [id number] IMPRESSION: 1. Moderate fluid throughout the colon with some mild diffuse wall thickening suggestive of a colitis. Additionally a focal area of narrowing is seen in the mid sigmoid colon perhaps due to nondistention, however, consider correlation with endoscopy to exclude an underlying lesion in this area causing narrowing. 2. Cardiomegaly. 3. Emphysematous changes. 4. Right lower lobe atelectasis. 5. Small umbilical hernia containing omentum without bowel or inflammation.
--- NOTE | 2021-08-20 13:18 | XR_ITS ---
WS: [id number] XR chest 1V portable [id number] REASON FOR EXAM: cp FINDINGS: The heart and mediastinum are within normal limits. Calcified granulomatous disease in both hemithoraces. No acute pulmonary parenchymal or pleural abnormality. Mild changes of degenerative spondylosis in the mid and lower thoracic spine. Thin needlelike radiopacity overlying the distal left clavicle. XR/XR chest 1V portable [id number] IMPRESSION: No acute abnormality. Soft tissue artifact as above.
--- NOTE | 2021-08-20 13:19 | ECG_ITS ---
[facility] Test Date: 2021-08-20 Pat Name: Milan Hua Department: Room: Gender: Male [employer]: : 1960 Requested By: Pio Ding Order Number: [id number] Gallagher MD: Jerri Hill M.D. Measurements Intervals [place] Rate: 64 P: 55 FL: 136 QRS: 69 QRSD: 105 T: 41 QT: 448 QTc: 464 Interpretive Statements SINUS RHYTHM Compared to ECG 01/08/2020 03:37:36 No significant changes Electronically Signed On 08-20-2021 18:23:12 CDT by Jerri Hill M.D. [email or web address]
--- NOTE | 2021-08-20 13:20 | ED_ITS ---
Documented by User: MELVIN Nieves 08/21/21 07:10 HPI - Abdominal Pain General: Chief Complaint: Abdominal Pain Stated Complaint: abdomen pain Time Seen by Provider: 08/20/21 13:07 History of Present Illness: Patient is a 60-year-old male comes to the ED with abdominal pain. Patient has a past medical history of PTSD, diabetes, hypertension and GERD. Abdominal pain started yesterday morning. Pain is located in the left side of the abdomen and waxes and wanes. He has episodes of really sharp acute pain that he rates a 10 out of 10. He endorses having nausea and vomiting since onset of symptoms. He has a history of constipation and has had similar symptoms like this before when he has been constipated. His last bowel movement was 3 days ago. He states he has given himself a couple enemas and it has not helped. He also reports having some chest pain that started while at rest yesterday as well. He has a history of PTSD and usually has chest pain similar to this with his past episodes. Chest pain started after the abdominal pain continued to get worse. He says he is stressed about this abdominal pain which he thinks is causing the chest pain. Denies any fever, chills, shortness of breath, blood in stool, diarrhea, dysuria or hematuria. Denies any past abdominal surgeries or bowel obstructions. Associated Symptoms: Reports constipation, nausea and vomiting; Denies chills, diarrhea, dysuria, fever(s), hematochezia and hematuria Review of Systems Const: Denies: fever(s), chills or fatigue Eyes: Denies: change in vision or eye discomfort ENMT: Denies: throat pain, odynophagia, nasal discharge or nasal congestion Card: Denies: chest pain, palpitations, edema, swelling of feet/ankles, dyspnea on exertion or orthopnea Resp: Denies: dyspnea, productive cough or non-productive cough GI: Reports: abdominal pain, nausea, vomiting and constipation; Denies: diarrhea or hematochezia : Denies: flank pain, difficulty urinating, dysuria or hematuria Musc: Denies: neck pain, back pain or extremity swelling Skin/Breast: Denies: rash or new lesions Neuro: Denies: headache(s), numbness in extremities or weakness in extremities COUNTS INCLUDE 234 BEDS AT THE [facility] ED PFSH: Medical History Diabetes Diarrhea Diastasis recti Erectile dysfunction Hemorrhoids History of meningitis Hyperlipidemia Hypertension Migraines Positive FIT (fecal immunochemical test) Umbilical hernia Surgical History History of arthroscopic knee surgery Family History Father Hypertension Diabetes Denies family history of Anesthesia complication Bleeding disorder Social History Smoking and tobacco status: current every day smoker Alcohol intake: never Marital status: / Current occupational status: disabled History of recent travel: No Physical Exam Const: COMMON NORMALS: patient oriented x3 and alert GENERAL APPEARANCE: cooperative HENMT: COMMON NORMALS: normocephalic HEAD & SCALP: normocephalic MOUTH: Normal oral and palatal mucosa present THROAT: posterior oropharynx normal and uvula midline Eye: COMMON NORMALS: Equal, round and reactive pupils present PUPIL: Yes Equal, round and reactive pupils present Neck/C-Spine: COMMON NORMALS: supple GENERAL: Yes normal visual inspection Resp: COMMON NORMALS: normal respiratory effort, No retractions, No use of accessory muscles and clear to auscultation bilaterally AUSCULTATION: clear to auscultation bilaterally Cardio: COMMON NORMALS: regular rate, regular rhythm, S1 normal heart sound present, S2 normal heart sound present, No gallops present (Cardio), No clicks present (Cardio), No murmurs present (Cardio) and Peripheral pulses 2+ throughout RATE: regular rate RHYTHM: regular rhythm HEART SOUNDS: S1 normal heart sound present and S2 normal heart sound present PERIPHERAL PULSES: Peripheral pulses 2+ throughout GI: COMMON NORMALS: Normal to inspection, nondistended, normoactive bowel sounds present, Soft to palpation, non-tender and no masses PALPATION: Yes Soft to palpation and Yes Tenderness to palpation present (GI) Details: LLQ and LUQ : COMMON NORMALS: Yes no CVA tenderness BLADDER/KIDNEY EXAM: Yes no CVA tenderness Back/Pelvis: COMMON NORMALS: no CVA tenderness Extremity: COMMON NORMALS: normal to inspection Neuro: COMMON NORMALS: patient oriented x3 SENSORIUM/ORIENTATION: Yes alert GAIT: Yes Normal gait present Skin: GENERAL SKIN EXAM: dry skin Course Vital Signs: Vital signs: Vital Signs Temperature 98.0 F 08/20/21 11:51 Pulse Rate 72 08/20/21 18:55 Respiratory Rate 16 08/20/21 18:55 Blood Pressure 126/70 08/20/21 18:55 Pulse Oximetry 97 08/20/21 18:55 MDM - Abdominal Pain Lab Data I reviewed the patient's lab results. : 08/20/21 14:15 08/20/21 14:15 Labs/Radiology: Radiology Impressions Abdomen/Pelvis CT 08/20/21 13:18 IMPRESSION: 1. Moderate fluid throughout the colon with some mild diffuse wall thickening suggestive of a colitis. Additionally a focal area of narrowing is seen in the mid sigmoid colon perhaps due to nondistention, however, consider correlation with endoscopy to exclude an underlying lesion in this area causing narrowing. 2. Cardiomegaly. 3. Emphysematous changes. 4. Right lower lobe atelectasis. 5. Small umbilical hernia containing omentum without bowel or inflammation. Chest X-Ray 08/20/21 13:18 IMPRESSION: No acute abnormality. Soft tissue artifact as above. Laboratory Results WBC 13.2 10^3/uL (4.0-10.0) H 08/20/21 14:15 RBC 5.10 10^6/uL (4.1-5.3) 08/20/21 14:15 Hgb 15.3 g/dL (11.7-16.6) 08/20/21 14:15 Hct 45.7 % (42.0-52.0) 08/20/21 14:15 MCV 89.6 fl (80-94) 08/20/21 14:15 MCH 30.0 pg (28.0-34.0) 08/20/21 14:15 MCHC 33.5 g/dL (30.0-36.0) 08/20/21 14:15 RDW 12.2 % (12.1-15.1) 08/20/21 14:15 Plt Count 366 10^3/cmm (130-400) 08/20/21 14:15 MPV 10.0 fL (7.4-10.4) 08/20/21 14:15 Neut % (Auto) 72.8 % 08/20/21 14:15 Lymph % (Auto) 16.8 % 08/20/21 14:15 Pepin % (Auto) 9.6 % 08/20/21 14:15 Eos % (Auto) 0.1 % 08/20/21 14:15 Baso % (Auto) 0.3 % 08/20/21 14:15 Neut # (Auto) 9.62 10^3/uL (1.8-7.7) H 08/20/21 14:15 Lymph # (Auto) 2.2 10^3/uL (0.8-4.8) 08/20/21 14:15 Pepin # (Auto) 1.3 10^3/uL (0.2-0.9) H 08/20/21 14:15 Eos # (Auto) 0.0 10^3/uL (0.0-0.8) 08/20/21 14:15 Baso # (Auto) 0.0 10^3/uL (0.0-0.1) 08/20/21 14:15 Nucleated RBC % (auto) 0 % 08/20/21 14:15 Nucleated RBCs # 0.0 /100WBC 08/20/21 14:15 Sodium 135 mmol/L (136-145) L 08/20/21 14:15 Potassium 3.9 mmol/L (3.5-5.1) 08/20/21 14:15 Chloride 95 mmol/L (98-107) L 08/20/21 14:15 Carbon Dioxide 27 mmol/L (22-29) 08/20/21 14:15 Anion Gap 16.9 (5-19) 08/20/21 14:15 BUN 15 mg/dL (6-20) 08/20/21 14:15 Creatinine 0.7 mg/dL (0.7-1.2) 08/20/21 14:15 GFR Calculation 115.8 mL/min (90-130) 08/20/21 14:15 Glucose 135 mg/dL (65-115) H 08/20/21 14:15 Calculated Osmolality 283 mOsm/kg (285-295) L 08/20/21 14:15 Calcium 9.3 mg/dL (8.5-10.5) 08/20/21 14:15 Total Bilirubin 0.7 mg/dL (0.15-1.2) 08/20/21 14:15 AST 13 U/L (0-40) 08/20/21 14:15 ALT 10 U/L (0-41) 08/20/21 14:15 Alkaline Phosphatase 78 IU/L (40-130) 08/20/21 14:15 Troponin T Baseline 9 ng/L (0-15) 08/20/21 14:15 Troponin T 120 Minute 7.67 ng/L (0-15) 08/20/21 16:45 Delta Troponin T -1.33 ABS# (0-10) L 08/20/21 16:45 NT-Pro-B Natriuret Pep 195 pg/mL (0-125) H 08/20/21 14:15 Total Protein 7.2 g/dL (6.6-8.7) 08/20/21 14:15 Albumin 4.6 g/dL (3.5-5.2) 08/20/21 14:15 Globulin 2.6 g/dL (1.3-4.6) 08/20/21 14:15 Lipase 24 U/L (13-60) 08/20/21 14:15 Urine Color Yellow (Yellow) 08/20/21 15:15 Urine Appearance Clear (CLEAR) 08/20/21 15:15 Urine pH 9 (5-7) H 08/20/21 15:15 Ur Specific Rumsey 1.020 (1.005-1.030) 08/20/21 15:15 Urine Protein Neg (Negative) 08/20/21 15:15 Urine Glucose (UA) Norm (Normal) 08/20/21 15:15 Urine Ketones Negative (Negative) 08/20/21 15:15 Urine Blood Neg (Negative) 08/20/21 15:15 Urine Nitrate Negative (Negative) 08/20/21 15:15 Urine Bilirubin Neg (Negative) 08/20/21 15:15 Prot Sulfosalicylic Acd Negative (Negative) 08/20/21 15:15 Urine Urobilinogen Norm mg/dL (Negative) 08/20/21 15:15 Ur Leukocyte Esterase Negative (Negative) 08/20/21 15:15 EKG Data EKG 1: EKG interpretation date: 08/20/21 EKG interpretation time: 13:45 Interpretation: Normal sinus rhythm, 64 bpm, no ST segment elevation or depression seen. EKG 2: EKG interpretation date: 04/06/22 EKG interpretation time: 15:22 Interpretation: Sinus bradycardia, 57 bpm, no ST segment elevation or depression seen. Discharge Plan Discharge Patient Disposition: Home Clinical Impression: Colitis, Stricture of sigmoid colon Condition: Stable Prescriptions: New hydrocodone-acetaminophen 5-325 mg tablet 1 tab PO .q 4-6 PRN (Reason: pain) Qty: 14 0RF metronidazole 500 mg tablet 500 mg PO BID 7 Days Qty: 14 0RF Cipro 500 mg tablet 500 mg PO Q12H Qty: 14 0RF No Action lisinopril 20 mg tablet 20 mg PO BID 0RF Rx Instructions: pt states he is unsure if he is still taking this medication-rx last filled on 10/06/2019 for 90d/s Farxiga 10 mg tablet 10 mg PO DAILY 0RF Trulicity 1.5 mg/0.5 mL pen injector 1.5 mg SUBCUT Q7D 0RF Rx Instructions: pt states he usually takes on wed or chlorthalidone 25 mg tablet 25 mg PO DAILY 0RF diltiazem HCl 240 mg capsule,ext.rel 24h degradable 480 mg PO DAILY 0RF Rx Instructions: pt states for the last 4 days he has only been taking one tab daily carvedilol 25 mg tablet 50 mg PO BID 0RF Rx Instructions: must administer with a meal/food hydralazine 25 mg tablet 25 mg PO BID 0RF atorvastatin 80 mg tablet 80 mg PO DAILY 0RF cholecalciferol (vitamin D3) 1,250 mcg (50,000 unit) capsule PO 0RF turmeric 400 mg capsule PO 0RF valerian root 500 mg capsule 500 mg PO DAILY 0RF sildenafil 100 mg tablet See Rx Instructions .Route .COMPLEX Qty: 20 6RF Rx Instructions: 1/2 TO 1 TAB 1 hour before intercourse, on empty stomach, NO NITROGLYCERIN Multiple Vitamins Tablet 1 tab PO DAILY 0RF Protonix 40 mg Tablet,Delayed Release (Dr/Ec) 40 mg PO DAILY 0RF ibuprofen 200 mg Tablet 600 mg PO PRN 0RF albuterol sulfate 90 mcg/actuation HFA aerosol inhaler 2 puff INHALATION Q4H PRN (Reason: Shortness Of Breath) 0RF Ibuprofen PM 200-38 mg Tablet 3 tab PO BEDTIME PRN (Reason: unknown) 0RF melatonin 10 mg Tablet 30 mg PO BEDTIME 0RF Discharge Orders: Discharge ED (Routine); Ordered 08/20/21 Ordered By: Melissa Mosquear Activity Restrictions/Additional Instructions: As we discussed you need to return to the emergency department for worsening or uncontrollable abdominal pains, repetitive episodes of vomiting, inability to tolerate or hold down your antibiotics, fevers greater than 100.4, severe bloody stools, generally feeling unwell, or any other concerns you may have. Case management should contact you shortly to set you up with a provider to perform your colonoscopy following treatment for your colitis. As we discussed please do a bland liquid diet over the next 48 hours and slowly advance as tolerated. Sign Out Sign Out Data: Patient Sign Out occurred on 08/20/21 at 17:11. Patient's care was discussed, and care was transferred from to MELVIN Reina. Coding Level of Care Code ED Insulator Helper for Chg Fwd Exam Comprehensive Documented by User: MELVIN Reina 08/20/21 18:11 HPI - Abdominal Pain General: Chief Complaint: Abdominal Pain Stated Complaint: abdomen pain Time Seen by Provider: 08/20/21 13:07 COUNTS INCLUDE 234 BEDS AT THE [facility] ED PFSH: Medical History Diabetes Diarrhea Diastasis recti Erectile dysfunction Hemorrhoids History of meningitis Hyperlipidemia Hypertension Migraines Positive FIT (fecal immunochemical test) Umbilical hernia Surgical History History of arthroscopic knee surgery Family History Father Hypertension Diabetes Denies family history of Anesthesia complication Bleeding disorder Social History Smoking and tobacco status: current every day smoker Alcohol intake: never Marital status: / Current occupational status: disabled History of recent travel: No Course Vital Signs: Vital signs: Vital Signs Temperature 98.0 F 08/20/21 11:51 Pulse Rate 72 08/20/21 18:55 Respiratory Rate 16 08/20/21 18:55 Blood Pressure 126/70 08/20/21 18:55 Pulse Oximetry 97 08/20/21 18:55 MDM - Abdominal Pain Medical Decision Making I assumed care from Pio Ding PA-C. Patient is a pleasant 60-year-old male here for left lower abdominal pains. He describes the pain is intermittent intense spasming. CT scan shows colitis. He does have one focal area of narrowing in the mid sigmoid colon-he will need a colonoscopy to rule out underlying lesion following treatment of his colitis. Patient's vital signs are normal. Blood work shows a white count of 13.2. Remainder of blood work and work-up is unremarkable. Pain is managed here and he feels comfortable attempting to treat this at home. He was given IV Cipro/Flagyl and will be sent home with these medications as well as something for pain. Recommend bland liquid diet over the next 48 hours and slowly advancing as tolerated. Case management referral placed to get patient set up with general surgery/Dr. Montague/Dr. Price for colonoscopy. Strict return to ED precautions verbally given to patient. Lab Data : 08/20/21 14:15 08/20/21 14:15 Labs/Radiology: Radiology Impressions Abdomen/Pelvis CT 08/20/21 13:18 IMPRESSION: 1. Moderate fluid throughout the colon with some mild diffuse wall thickening suggestive of a colitis. Additionally a focal area of narrowing is seen in the mid sigmoid colon perhaps due to nondistention, however, consider correlation with endoscopy to exclude an underlying lesion in this area causing narrowing. 2. Cardiomegaly. 3. Emphysematous changes. 4. Right lower lobe atelectasis. 5. Small umbilical hernia containing omentum without bowel or inflammation. Chest X-Ray 08/20/21 13:18 IMPRESSION: No acute abnormality. Soft tissue artifact as above. Laboratory Results WBC 13.2 10^3/uL (4.0-10.0) H 08/20/21 14:15 RBC 5.10 10^6/uL (4.1-5.3) 08/20/21 14:15 Hgb 15.3 g/dL (11.7-16.6) 08/20/21 14:15 Hct 45.7 % (42.0-52.0) 08/20/21 14:15 MCV 89.6 fl (80-94) 08/20/21 14:15 MCH 30.0 pg (28.0-34.0) 08/20/21 14:15 MCHC 33.5 g/dL (30.0-36.0) 08/20/21 14:15 RDW 12.2 % (12.1-15.1) 08/20/21 14:15 Plt Count 366 10^3/cmm (130-400) 08/20/21 14:15 MPV 10.0 fL (7.4-10.4) 08/20/21 14:15 Neut % (Auto) 72.8 % 08/20/21 14:15 Lymph % (Auto) 16.8 % 08/20/21 14:15 Pepin % (Auto) 9.6 % 08/20/21 14:15 Eos % (Auto) 0.1 % 08/20/21 14:15 Baso % (Auto) 0.3 % 08/20/21 14:15 Neut # (Auto) 9.62 10^3/uL (1.8-7.7) H 08/20/21 14:15 Lymph # (Auto) 2.2 10^3/uL (0.8-4.8) 08/20/21 14:15 Pepin # (Auto) 1.3 10^3/uL (0.2-0.9) H 08/20/21 14:15 Eos # (Auto) 0.0 10^3/uL (0.0-0.8) 08/20/21 14:15 Baso # (Auto) 0.0 10^3/uL (0.0-0.1) 08/20/21 14:15 Nucleated RBC % (auto) 0 % 08/20/21 14:15 Nucleated RBCs # 0.0 /100WBC 08/20/21 14:15 Sodium 135 mmol/L (136-145) L 08/20/21 14:15 Potassium 3.9 mmol/L (3.5-5.1) 08/20/21 14:15 Chloride 95 mmol/L (98-107) L 08/20/21 14:15 Carbon Dioxide 27 mmol/L (22-29) 08/20/21 14:15 Anion Gap 16.9 (5-19) 08/20/21 14:15 BUN 15 mg/dL (6-20) 08/20/21 14:15 Creatinine 0.7 mg/dL (0.7-1.2) 08/20/21 14:15 GFR Calculation 115.8 mL/min (90-130) 08/20/21 14:15 Glucose 135 mg/dL (65-115) H 08/20/21 14:15 Calculated Osmolality 283 mOsm/kg (285-295) L 08/20/21 14:15 Calcium 9.3 mg/dL (8.5-10.5) 08/20/21 14:15 Total Bilirubin 0.7 mg/dL (0.15-1.2) 08/20/21 14:15 AST 13 U/L (0-40) 08/20/21 14:15 ALT 10 U/L (0-41) 08/20/21 14:15 Alkaline Phosphatase 78 IU/L (40-130) 08/20/21 14:15 Troponin T Baseline 9 ng/L (0-15) 08/20/21 14:15 Troponin T 120 Minute 7.67 ng/L (0-15) 08/20/21 16:45 Delta Troponin T -1.33 ABS# (0-10) L 08/20/21 16:45 NT-Pro-B Natriuret Pep 195 pg/mL (0-125) H 08/20/21 14:15 Total Protein 7.2 g/dL (6.6-8.7) 08/20/21 14:15 Albumin 4.6 g/dL (3.5-5.2) 08/20/21 14:15 Globulin 2.6 g/dL (1.3-4.6) 08/20/21 14:15 Lipase 24 U/L (13-60) 08/20/21 14:15 Urine Color Yellow (Yellow) 08/20/21 15:15 Urine Appearance Clear (CLEAR) 08/20/21 15:15 Urine pH 9 (5-7) H 08/20/21 15:15 Ur Specific Rumsey 1.020 (1.005-1.030) 08/20/21 15:15 Urine Protein Neg (Negative) 08/20/21 15:15 Urine Glucose (UA) Norm (Normal) 08/20/21 15:15 Urine Ketones Negative (Negative) 08/20/21 15:15 Urine Blood Neg (Negative) 08/20/21 15:15 Urine Nitrate Negative (Negative) 08/20/21 15:15 Urine Bilirubin Neg (Negative) 08/20/21 15:15 Prot Sulfosalicylic Acd Negative (Negative) 08/20/21 15:15 Urine Urobilinogen Norm mg/dL (Negative) 08/20/21 15:15 Ur Leukocyte Esterase Negative (Negative) 08/20/21 15:15 Discharge Plan Discharge Patient Disposition: Home Clinical Impression: Colitis, Stricture of sigmoid colon Condition: Stable Prescriptions: New hydrocodone-acetaminophen 5-325 mg tablet 1 tab PO .q 4-6 PRN (Reason: pain) Qty: 14 0RF metronidazole 500 mg tablet 500 mg PO BID 7 Days Qty: 14 0RF Cipro 500 mg tablet 500 mg PO Q12H Qty: 14 0RF No Action lisinopril 20 mg tablet 20 mg PO BID 0RF Rx Instructions: pt states he is unsure if he is still taking this medication-rx last filled on 10/06/2019 for 90d/s Farxiga 10 mg tablet 10 mg PO DAILY 0RF Trulicity 1.5 mg/0.5 mL pen injector 1.5 mg SUBCUT Q7D 0RF Rx Instructions: pt states he usually takes on wed or chlorthalidone 25 mg tablet 25 mg PO DAILY 0RF diltiazem HCl 240 mg capsule,ext.rel 24h degradable 480 mg PO DAILY 0RF Rx Instructions: pt states for the last 4 days he has only been taking one tab daily carvedilol 25 mg tablet 50 mg PO BID 0RF Rx Instructions: must administer with a meal/food hydralazine 25 mg tablet 25 mg PO BID 0RF atorvastatin 80 mg tablet 80 mg PO DAILY 0RF cholecalciferol (vitamin D3) 1,250 mcg (50,000 unit) capsule PO 0RF turmeric 400 mg capsule PO 0RF valerian root 500 mg capsule 500 mg PO DAILY 0RF sildenafil 100 mg tablet See Rx Instructions .Route .COMPLEX Qty: 20 6RF Rx Instructions: 1/2 TO 1 TAB 1 hour before intercourse, on empty stomach, NO NITROGLYCERIN Multiple Vitamins Tablet 1 tab PO DAILY 0RF Protonix 40 mg Tablet,Delayed Release (Dr/Ec) 40 mg PO DAILY 0RF ibuprofen 200 mg Tablet 600 mg PO PRN 0RF albuterol sulfate 90 mcg/actuation HFA aerosol inhaler 2 puff INHALATION Q4H PRN (Reason: Shortness Of Breath) 0RF Ibuprofen PM 200-38 mg Tablet 3 tab PO BEDTIME PRN (Reason: unknown) 0RF melatonin 10 mg Tablet 30 mg PO BEDTIME 0RF Discharge Orders: Discharge ED (Routine); Ordered 08/20/21 Ordered By: Melissa Mosquera Activity Restrictions/Additional Instructions: As we discussed you need to return to the emergency department for worsening or uncontrollable abdominal pains, repetitive episodes of vomiting, inability to tolerate or hold down your antibiotics, fevers greater than 100.4, severe bloody stools, generally feeling unwell, or any other concerns you may have. Case management should contact you shortly to set you up with a provider to perform your colonoscopy following treatment for your colitis. As we discussed please do a bland liquid diet over the next 48 hours and slowly advance as tolerated. Sign Out Sign Out Data: Patient Sign Out occurred on 08/20/21 at 17:11. Patient's care was discussed, and care was transferred from to MELVIN Reina. Coding Level of Care Code ED Insulator Helper for Chg Fwd Exam Comprehensive Documented by User: Amari Villarreal MD 08/24/21 22:54 HPI - Abdominal Pain General: Chief Complaint: Abdominal Pain Stated Complaint: abdomen pain Time Seen by Provider: 08/20/21 13:07 COUNTS INCLUDE 234 BEDS AT THE [facility] ED PFSH: Medical History Diabetes Diarrhea Diastasis recti Erectile dysfunction Hemorrhoids History of meningitis Hyperlipidemia Hypertension Migraines Positive FIT (fecal immunochemical test) Umbilical hernia Surgical History History of arthroscopic knee surgery Family History Father Hypertension Diabetes Denies family history of Anesthesia complication Bleeding disorder Social History Smoking and tobacco status: current every day smoker Alcohol intake: never Marital status: / Current occupational status: disabled History of recent travel: No Course Vital Signs: Vital signs: Vital Signs Temperature 98.0 F 08/20/21 11:51 Pulse Rate 72 08/20/21 18:55 Respiratory Rate 16 08/20/21 18:55 Blood Pressure 126/70 08/20/21 18:55 Pulse Oximetry 97 08/20/21 18:55 MDM - Abdominal Pain Medical Decision Making I assumed care from Pio Ding PA-C. Patient is a pleasant 60-year-old male here for left lower abdominal pains. He describes the pain is intermittent intense spasming. CT scan shows colitis. He does have one focal area of narrow ing in the mid sigmoid colon-he will need a colonoscopy to rule out underlying lesion following treatment of his colitis. Patient's vital signs are normal. Blood work shows a white count of 13.2. Remainder of blood work and work-up is unremarkable. Pain is managed here and he feels comfortable attempting to treat this at home. He was given IV Cipro/Flagyl and will be sent home with these medications as well as something for pain. Recommend bland liquid diet over the next 48 hours and slowly advancing as tolerated. Case management referral placed to get patient set up with general surgery/Dr. Montague/Dr. Price for colonoscopy. Strict return to ED precautions verbally given to patient. I discussed this case with MELVIN Nieves. I reviewed documentation. Amari Villarreal MD Emergency Medicine at [facility]. Lab Data : 08/20/21 14:15 08/20/21 14:15 Labs/Radiology: Radiology Impressions Abdomen/Pelvis CT 08/20/21 13:18 IMPRESSION: 1. Moderate fluid throughout the colon with some mild diffuse wall thickening suggestive of a colitis. Additionally a focal area of narrowing is seen in the mid sigmoid colon perhaps due to nondistention, however, consider correlation with endoscopy to exclude an underlying lesion in this area causing narrowing. 2. Cardiomegaly. 3. Emphysematous changes. 4. Right lower lobe atelectasis. 5. Small umbilical hernia containing omentum without bowel or inflammation. Chest X-Ray 08/20/21 13:18 IMPRESSION: No acute abnormality. Soft tissue artifact as above. Laboratory Results WBC 13.2 10^3/uL (4.0-10.0) H 08/20/21 14:15 RBC 5.10 10^6/uL (4.1-5.3) 08/20/21 14:15 Hgb 15.3 g/dL (11.7-16.6) 08/20/21 14:15 Hct 45.7 % (42.0-52.0) 08/20/21 14:15 MCV 89.6 fl (80-94) 08/20/21 14:15 MCH 30.0 pg (28.0-34.0) 08/20/21 14:15 MCHC 33.5 g/dL (30.0-36.0) 08/20/21 14:15 RDW 12.2 % (12.1-15.1) 08/20/21 14:15 Plt Count 366 10^3/cmm (130-400) 08/20/21 14:15 MPV 10.0 fL (7.4-10.4) 08/20/21 14:15 Neut % (Auto) 72.8 % 08/20/21 14:15 Lymph % (Auto) 16.8 % 08/20/21 14:15 Pepin % (Auto) 9.6 % 08/20/21 14:15 Eos % (Auto) 0.1 % 08/20/21 14:15 Baso % (Auto) 0.3 % 08/20/21 14:15 Neut # (Auto) 9.62 10^3/uL (1.8-7.7) H 08/20/21 14:15 Lymph # (Auto) 2.2 10^3/uL (0.8-4.8) 08/20/21 14:15 Pepin # (Auto) 1.3 10^3/uL (0.2-0.9) H 08/20/21 14:15 Eos # (Auto) 0.0 10^3/uL (0.0-0.8) 08/20/21 14:15 Baso # (Auto) 0.0 10^3/uL (0.0-0.1) 08/20/21 14:15 Nucleated RBC % (auto) 0 % 08/20/21 14:15 Nucleated RBCs # 0.0 /100WBC 08/20/21 14:15 Sodium 135 mmol/L (136-145) L 08/20/21 14:15 Potassium 3.9 mmol/L (3.5-5.1) 08/20/21 14:15 Chloride 95 mmol/L (98-107) L 08/20/21 14:15 Carbon Dioxide 27 mmol/L (22-29) 08/20/21 14:15 Anion Gap 16.9 (5-19) 08/20/21 14:15 BUN 15 mg/dL (6-20) 08/20/21 14:15 Creatinine 0.7 mg/dL (0.7-1.2) 08/20/21 14:15 GFR Calculation 115.8 mL/min (90-130) 08/20/21 14:15 Glucose 135 mg/dL (65-115) H 08/20/21 14:15 Calculated Osmolality 283 mOsm/kg (285-295) L 08/20/21 14:15 Calcium 9.3 mg/dL (8.5-10.5) 08/20/21 14:15 Total Bilirubin 0.7 mg/dL (0.15-1.2) 08/20/21 14:15 AST 13 U/L (0-40) 08/20/21 14:15 ALT 10 U/L (0-41) 08/20/21 14:15 Alkaline Phosphatase 78 IU/L (40-130) 08/20/21 14:15 Troponin T Baseline 9 ng/L (0-15) 08/20/21 14:15 Troponin T 120 Minute 7.67 ng/L (0-15) 08/20/21 16:45 Delta Troponin T -1.33 ABS# (0-10) L 08/20/21 16:45 NT-Pro-B Natriuret Pep 195 pg/mL (0-125) H 08/20/21 14:15 Total Protein 7.2 g/dL (6.6-8.7) 08/20/21 14:15 Albumin 4.6 g/dL (3.5-5.2) 08/20/21 14:15 Globulin 2.6 g/dL (1.3-4.6) 08/20/21 14:15 Lipase 24 U/L (13-60) 08/20/21 14:15 Urine Color Yellow (Yellow) 08/20/21 15:15 Urine Appearance Clear (CLEAR) 08/20/21 15:15 Urine pH 9 (5-7) H 08/20/21 15:15 Ur Specific Rumsey 1.020 (1.005-1.030) 08/20/21 15:15 Urine Protein Neg (Negative) 08/20/21 15:15 Urine Glucose (UA) Norm (Normal) 08/20/21 15:15 Urine Ketones Negative (Negative) 08/20/21 15:15 Urine Blood Neg (Negative) 08/20/21 15:15 Urine Nitrate Negative (Negative) 08/20/21 15:15 Urine Bilirubin Neg (Negative) 08/20/21 15:15 Prot Sulfosalicylic Acd Negative (Negative) 08/20/21 15:15 Urine Urobilinogen Norm mg/dL (Negative) 08/20/21 15:15 Ur Leukocyte Esterase Negative (Negative) 08/20/21 15:15 Discharge Plan Discharge Patient Disposition: Home Clinical Impression: Colitis, Stricture of sigmoid colon Condition: Stable Prescriptions: New hydrocodone-acetaminophen 5-325 mg tablet 1 tab PO .q 4-6 PRN (Reason: pain) Qty: 14 0RF metronidazole 500 mg tablet 500 mg PO BID 7 Days Qty: 14 0RF Cipro 500 mg tablet 500 mg PO Q12H Qty: 14 0RF No Action lisinopril 20 mg tablet 20 mg PO BID 0RF Rx Instructions: pt states he is unsure if he is still taking this medication-rx last filled on 10/06/2019 for 90d/s Farxiga 10 mg tablet 10 mg PO DAILY 0RF Trulicity 1.5 mg/0.5 mL pen injector 1.5 mg SUBCUT Q7D 0RF Rx Instructions: pt states he usually takes on wed or chlorthalidone 25 mg tablet 25 mg PO DAILY 0RF diltiazem HCl 240 mg capsule,ext.rel 24h degradable 480 mg PO DAILY 0RF Rx Instructions: pt states for the last 4 days he has only been taking one tab daily carvedilol 25 mg tablet 50 mg PO BID 0RF Rx Instructions: must administer with a meal/food hydralazine 25 mg tablet 25 mg PO BID 0RF atorvastatin 80 mg tablet 80 mg PO DAILY 0RF cholecalciferol (vitamin D3) 1,250 mcg (50,000 unit) capsule PO 0RF turmeric 400 mg capsule PO 0RF valerian root 500 mg capsule 500 mg PO DAILY 0RF sildenafil 100 mg tablet See Rx Instructions .Route .COMPLEX Qty: 20 6RF Rx Instructions: 1/2 TO 1 TAB 1 hour before intercourse, on empty stomach, NO NITROGLYCERIN Multiple Vitamins Tablet 1 tab PO DAILY 0RF Protonix 40 mg Tablet,Delayed Release (Dr/Ec) 40 mg PO DAILY 0RF ibuprofen 200 mg Tablet 600 mg PO PRN 0RF albuterol sulfate 90 mcg/actuation HFA aerosol inhaler 2 puff INHALATION Q4H PRN (Reason: Shortness Of Breath) 0RF Ibuprofen PM 200-38 mg Tablet 3 tab PO BEDTIME PRN (Reason: unknown) 0RF melatonin 10 mg Tablet 30 mg PO BEDTIME 0RF Discharge Orders: Discharge ED (Routine); Ordered 08/20/21 Ordered By: Melissa Mosquera Activity Restrictions/Additional Instructions: As we discussed you need to return to the emergency department for worsening or uncontrollable abdominal pains, repetitive episodes of vomiting, inability to tolerate or hold down your antibiotics, fevers greater than 100.4, severe bloody stools, generally feeling unwell, or any other concerns you may have. Case management should contact you shortly to set you up with a provider to perform your colonoscopy following treatment for your colitis. As we discussed please do a bland liquid diet over the next 48 hours and slowly advance as tolerated. Sign Out Sign Out Data: Patient Sign Out occurred on 08/20/21 at 17:11. Patient's care was discussed, and care was transferred from to MELVIN Reina. Coding Level of Care Code ED Insulator Helper for Oralia Fwteri Exam Comprehensive
[2021-08-20 14:38] LABS: Basophils % 0.3 %; Eosinophils % 0.1 %; Hematocrit 45.7 % (42.0-52.0); Hemoglobin 15.3 g/dL (11.7-16.6); Lymphocytes # 2.2 10^3/uL (0.8-4.8); Lymphocytes % 16.8 %; Mean Corpuscular HGB Conc 33.5 g/dL (30.0-36.0); Mean Corpuscular Volume 89.6 fl (80-94); Monocytes # 1.3 10^3/uL (0.2-0.9); Monocytes % 9.6 %; Neutrophils # 9.62 10^3/uL (1.8-7.7); Neutrophils % 72.8 %; Nucleated Red Blood Cells % 0 %; Platelet Count 366 10^3/cmm (130-400); Red Cell Distribution Width 12.2 % (12.1-15.1); White Blood Count 13.2 10^3/uL (4.0-10.0)
[2021-08-20] MEDS: ondansetron 2 mg/ML SDV 2 mL 4 MG IVP (14:43)
[2021-08-20] MEDS: morphine 4 mg/mL SDV 1 mL IVP ×2 (14:43→16:21)
[2021-08-20] MEDS: sodium chloride 0.9% 1,000 ML 999 ML IV (14:46)
[2021-08-20 15:02] LABS: Troponin(5th) Baseline 9 ng/L (0-15)
[2021-08-20 15:09] LABS: Alanine Aminotransferase 10 U/L (0-41); Albumin Level 4.6 g/dL (3.5-5.2); Alkaline Phosphatase 78 IU/L (40-130); Anion Gap 16.9 (5-19); Aspartate Amino Transferase 13 U/L (0-40); Blood Urea Nitrogen 15 mg/dL (6-20); Calcium 9.3 mg/dL (8.5-10.5); Carbon Dioxide 27 mmol/L (22-29); Chloride 95 mmol/L (98-107); Globulin 2.6 g/dL (1.3-4.6); Glomerular Filtration Rate 115.8 mL/min (90-130); Glucose 135 mg/dL (65-115); Lipase 24 U/L (13-60); NT Pro B Type Natriuretic Pept 195 pg/mL (0-125); Osmolality Calculated 283 mOsm/kg (285-295); Potassium 3.9 mmol/L (3.5-5.1); Sodium 135 mmol/L (136-145); Total Bilirubin 0.7 mg/dL (0.15-1.2); Total Protein 7.2 g/dL (6.6-8.7)
--- NOTE | 2021-08-20 15:19 | ECG_ITS ---
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 Measurements Intervals [place] Rate: 57 P: 52 GA: 132 QRS: 60 QRSD: 108 T: 31 QT: 483 QTc: 471 Interpretive Statements SINUS BRADYCARDIA PROLONGED QT INTERVAL Compared to ECG 08/20/2021 13:42:42 Prolonged QT interval now present Sinus rhythm no longer present Electronically Signed On 08-20-2021 18:29:23 CDT by Jerri Hill M.D. [id number]
[2021-08-20] MEDS: iohexol 300 mg/mL 100 mL Btl IV (15:30)
[2021-08-20 16:21] VITALS: RESP 16; O2SAT 97
[2021-08-20 16:51] LABS: Add Urine Microscopic? NO; Charge for UA Resulting for Rev
[2021-08-20 16:54] LABS: Urine Appearance Clear (CLEAR); Urine Color Yellow (Yellow); pH Urine 9 (5-7)
[2021-08-20 16:55] LABS: Bilirubin Urine Neg (Negative); Blood Urine Neg (Negative); Glucose Urine UA Norm (Normal); Ketones Urine Negative (Negative); Leukocyte Esterase Urine Negative (Negative); Nitrate Urine Negative (Negative); Protein Urine Neg (Negative); Sulfosalicylic Acid Urine Negative (Negative); Urobilinogen Urine Norm (Negative)
[2021-08-20 17:30] LABS: Troponin 5 2HR 7.67 ng/L (0-15)
[2021-08-20] MEDS: ciprofloxacin 400 MG/200 ML PREMIX 200 MG IV (17:31)
[2021-08-20] MEDS: metroNIDAZOLE IV 500 MG/100 ML PREMIX 100 MG IV (17:32)
[2021-08-20] MEDS: HYDROmorphone 1 mg/mL INJ 1 mL IVP (17:35)
[2021-08-20 17:50] LABS: Troponin 5 2HR Delta -1.33 ABS# (0-10)
[2021-08-20 18:55] VITALS: BP 126/70; PULSE 72; RESP 16; O2SAT 97
--- NOTE | 2021-08-21 13:24 | DCPLANNER ---
Addendum entered by Tg Stark 09/17/21 18:52: Patient had a follow up appointment scheduled with Dr. Price - patient did attend appointment. Addendum entered by Tg Stark 08/22/21 07:01: Patient has a follow up appointment scheduled for Wednesday, September 17, 2021 at 10:[address] Price at [facility]. Clinic will call patient with appointment information. Original Note: airport manager had message to schedule a follow up appointment for patient with Dr. Price. airport manager sent patients information to the front staff at [facility] for review. Patients information will be printed and reviewed. Clinic will call patient with appointment information.
== END 2021-08-20 18:45 | disposition home or self-care (01) ==
PROVIDERS: Physician Assistant; Emergency Provider Physician Assistant
DX: K56.699 Other intestinal obstruction unspecified as to partial versus complete obstruction (principal); K52.9 Noninfective gastroenteritis and colitis, unspecified; K42.9 Umbilical hernia without obstruction or gangrene; I10 Essential (primary) hypertension; E78.5 Hyperlipidemia, unspecified
CPT/HCPCS: 71045; 74177; 80053; 81003; 83690; 83880; 84484; 85025; 87040; 93005; 96365; 96367; 96375; 96376; 99284; J0744; J1170; J2270; J2405; J7030; Q9967; S0030

== ENCOUNTER 2021-08-25 12:36 | Emergency (ER) | payer MEDICARE, SELFPAY ==
[2021-08-25 12:46] VITALS: BP 160/100; PULSE 79; RESP 18; TEMP 36.9; O2SAT 98; BMI 29.0
--- NOTE | 2021-08-25 12:58 | W.ED.ABDPA2 ---
HPI - Abdominal Pain General: Chief Complaint: Abdominal Pain Stated Complaint: severe abdominal pain Time Seen by Provider: 08/25/21 12:53 Source: patient Mode of arrival: ambulatory Limitations: no limitations History of Present Illness: 60-year-old male presents emergency room with complaint of abdominal pain. He was seen you recently had an enteritis-like. They recommended colonoscopy at a later date he states he still having abdominal discomfort no hematochezia melena hematemesis cough congestion no dysuria urgency or frequency. No pain difficulty breathing no chest pain. MD elicited complaint: abdominal pain Pertinent past history: none Onset (ago): day(s) Pain Consistency: intermittent Location: Periumbilical Severity: moderate Quality: cramping Radiation: none Migration to: no migration Exacerbating factors: nothing Relieving factors: nothing Associated Symptoms: Denies anorexia, belching, bloating, change in bowel habits, change in stool character, chills, coffee ground emesis, constipation, GI cramping, diarrhea, dyspepsia, dysuria, excessive flatus, fever(s), heartburn, hematochezia, hematuria, hematemesis, fecal incontinence, loose stools, melena, nausea, poor appetite, syncope and vomiting Review of Systems Const: Denies: fever(s) or chills Card: Denies: syncope GI: Reports: abdominal pain; Denies: nausea, vomiting, hematemesis, coffee ground emesis, heartburn, diarrhea, constipation, bloating, GI cramping, belching, excessive flatus, fecal incontinence, change in bowel habits, change in stool character, hematochezia or melena : Denies: dysuria or hematuria PFSH ED PFSH: Medical History Diabetes Diarrhea Diastasis recti Erectile dysfunction Hemorrhoids History of meningitis Hyperlipidemia Hypertension Migraines Positive FIT (fecal immunochemical test) Umbilical hernia Surgical History History of arthroscopic knee surgery Family History Father Hypertension Diabetes Denies family history of Anesthesia complication Bleeding disorder Social History Smoking and tobacco status: current every day smoker Alcohol intake: never Marital status: / Current occupational status: disabled History of recent travel: No Physical Exam Const: COMMON NORMALS: no acute distress GENERAL APPEARANCE: cooperative and comfortable ORIENTATION/CONSCIOUSNESS: Yes awake, Yes oriented to person, Yes oriented to place and Yes oriented to time HENMT: COMMON NORMALS: normocephalic, atraumatic and hearing grossly normal bilaterally HEAD & SCALP: normocephalic and atraumatic Neck/C-Spine: COMMON NORMALS: no JVD Resp: COMMON NORMALS: normal respiratory effort, No retractions, No use of accessory muscles and clear to auscultation bilaterally AUSCULTATION: clear to auscultation bilaterally Cardio: COMMON NORMALS: no JVD, regular rate, regular rhythm and No murmurs present (Cardio) RATE: regular rate RHYTHM: regular rhythm GI: COMMON NORMALS: Soft to palpation and No hepatosplenomegaly present AUSCULTATION: Yes normoactive bowel sounds PALPATION: Yes Soft to palpation, No Tenderness to palpation present (GI), No Guarding due to palpation present (GI) and Yes No hepatosplenomegaly present Extremity: COMMON NORMALS: normal to inspection, capillary refill normal, no clubbing, cyanosis or edema, no calf tenderness and no pedal edema Neuro: SENSORIUM/ORIENTATION: Yes oriented to person, Yes oriented to place and Yes oriented to time Skin: COMMON NORMALS: no rashes or lesions noted GENERAL SKIN EXAM: no rashes or lesions noted Course Vital Signs: Vital signs: Vital Signs Temperature 98.5 F 08/25/21 12:46 Pulse Rate 70 08/25/21 15:29 Respiratory Rate 18 08/25/21 15:29 Blood Pressure 155/88 08/25/21 15:29 Pulse Oximetry 98 08/25/21 15:29 MDM - Abdominal Pain Medical Decision Making CT and labs reviewed. Patient has a high-grade obstruction in the colon see dimensions on the CT report and was started on Cipro and Flagyl and the potential that this is infectious however his white count is normal more concerned that this obstruction may be due to carcinoma. Unfortunately we do not have general surgery coverage at our facility today,patient will need to be transferred. We have made arrangements with Dr. Rolle at [facility] in [place]. Medical Records I reviewed the patient's medical records. Lab Data I reviewed the patient's lab results. : 08/25/21 13:35 08/25/21 13:35 Labs/Radiology: Radiology Impressions Abdomen/Pelvis CT 08/25/21 13:20 IMPRESSION: 1. High-grade stricture involving the distal sigmoid colon resulting in a moderate obstruction of the more proximal colon and fecal retention. Stricture extends over length of 4.0 cm. Suspicious for neoplasm until proven otherwise. Potentially this could be a postinflammatory stricture but there is wall thickening and hyperemia. No adjacent lymph nodes. 2. No metastatic lesions in the liver or adrenal glands. Laboratory Results WBC 8.8 10^3/uL (4.0-10.0) 08/25/21 13:35 RBC 5.01 10^6/uL (4.1-5.3) 08/25/21 13:35 Hgb 15.4 g/dL (11.7-16.6) 08/25/21 13:35 Hct 45.8 % (42.0-52.0) 08/25/21 13:35 MCV 91.4 fl (80-94) 08/25/21 13:35 MCH 30.7 pg (28.0-34.0) 08/25/21 13:35 MCHC 33.6 g/dL (30.0-36.0) 08/25/21 13:35 RDW 12.1 % (12.1-15.1) 08/25/21 13:35 Plt Count 332 10^3/cmm (130-400) 08/25/21 13:35 MPV 10.1 fL (7.4-10.4) 08/25/21 13:35 Neut % (Auto) 61.7 % 08/25/21 13:35 Lymph % (Auto) 27.4 % 08/25/21 13:35 [place] % (Auto) 9.0 % 08/25/21 13:35 Eos % (Auto) 0.8 % 08/25/21 13:35 Baso % (Auto) 0.6 % 08/25/21 13:35 Neut # (Auto) 5.42 10^3/uL (1.8-7.7) 08/25/21 13:35 Lymph # (Auto) 2.4 10^3/uL (0.8-4.8) 08/25/21 13:35 [place] # (Auto) 0.8 10^3/uL (0.2-0.9) 08/25/21 13:35 Eos # (Auto) 0.1 10^3/uL (0.0-0.8) 08/25/21 13:35 Baso # (Auto) 0.1 10^3/uL (0.0-0.1) 08/25/21 13:35 Nucleated RBC % (auto) 0 % 08/25/21 13:35 Nucleated RBCs # 0.0 /100WBC 08/25/21 13:35 Sodium 136 mmol/L (136-145) 08/25/21 13:35 Potassium 3.9 mmol/L (3.5-5.1) 08/25/21 13:35 Chloride 100 mmol/L (98-107) 08/25/21 13:35 Carbon Dioxide 24 mmol/L (22-29) 08/25/21 13:35 Anion Gap 15.9 (5-19) 08/25/21 13:35 BUN 8 mg/dL (6-20) 08/25/21 13:35 Creatinine 0.8 mg/dL (0.7-1.2) 08/25/21 13:35 GFR Calculation 99.3 mL/min (90-130) 08/25/21 13:35 Glucose 118 mg/dL (65-115) H 08/25/21 13:35 Calculated Osmolality 281 mOsm/kg (285-295) L 08/25/21 13:35 Lactate 1.3 mmol/L (0.5-2.2) 08/25/21 13:57 Calcium 9.6 mg/dL (8.5-10.5) 08/25/21 13:35 Total Bilirubin 0.3 mg/dL (0.15-1.2) 08/25/21 13:35 AST 19 U/L (0-40) 08/25/21 13:35 ALT 16 U/L (0-41) 08/25/21 13:35 Alkaline Phosphatase 71 IU/L (40-130) 08/25/21 13:35 Total Protein 6.7 g/dL (6.6-8.7) 08/25/21 13:35 Albumin 4.5 g/dL (3.5-5.2) 08/25/21 13:35 Globulin 2.2 g/dL (1.3-4.6) 08/25/21 13:35 Lipase 27 U/L (13-60) 08/25/21 13:35 Urine Color Dark yellow (Yellow) 08/25/21 12:50 Urine Appearance Clear (CLEAR) 08/25/21 12:50 Urine pH 6.5 (5-7) 08/25/21 12:50 Ur Specific [place] 1.010 (1.005-1.030) 08/25/21 12:50 Urine Protein Neg (Negative) 08/25/21 12:50 Urine Glucose (UA) Norm (Normal) 08/25/21 12:50 Urine Ketones 1+ (Negative) H 08/25/21 12:50 Urine Blood Neg (Negative) 08/25/21 12:50 Urine Nitrate Negative (Negative) 08/25/21 12:50 Urine Bilirubin 1+ (Negative) H 08/25/21 12:50 Urine Urobilinogen Norm mg/dL (Negative) 08/25/21 12:50 Ur Leukocyte Esterase Trace (Negative) H 08/25/21 12:50 Urine RBC None /hpf (0-2) 08/25/21 12:50 Urine WBC 0-4 /hpf (0-5) H 08/25/21 12:50 Ur Squamous Epith Cells 0-4 /hpf (0-5) H 08/25/21 12:50 Amorphous Sediment Not Reportable 08/25/21 12:50 Urine Bacteria Trace /hpf (NONE) 08/25/21 12:50 Discharge Plan Discharge Patient Disposition: Xfer Short-Term Hosp Clinical Impression: Stricture of sigmoid colon, Large bowel obstruction Condition: Stable Prescriptions: No Action lisinopril 20 mg tablet 20 mg PO BID 0RF diltiazem HCl 240 mg capsule,ext.rel 24h degradable 480 mg PO DAILY 0RF cholecalciferol (vitamin D3) 1,250 mcg (50,000 unit) capsule 50,000 unit PO DAILY 0RF sildenafil 100 mg tablet See Rx Instructions .Route .COMPLEX Qty: 20 6RF Rx Instructions: 1/2 TO 1 TAB 1 hour before intercourse, on empty stomach, NO NITROGLYCERIN pantoprazole [Protonix] 40 mg Tablet,Delayed Release (Dr/Ec) 40 mg PO DAILY 0RF ibuprofen 200 mg Tablet 600 mg PO PRN 0RF albuterol sulfate 90 mcg/actuation HFA aerosol inhaler 2 puff INHALATION Q4H PRN (Reason: Shortness Of Breath) 0RF Ibuprofen PM 200-38 mg Tablet 3 tab PO BEDTIME PRN (Reason: Pain) 0RF melatonin 10 mg Tablet 30 mg PO BEDTIME 0RF metronidazole 500 mg tablet 500 mg PO BID 7 Days Qty: 14 0RF ciprofloxacin HCl [Cipro] 500 mg tablet 500 mg PO Q12H Qty: 14 0RF simvastatin 20 mg tablet 20 mg PO QPM 0RF sertraline 25 mg tablet 25 mg PO DAILY 0RF hydrochlorothiazide 12.5 mg tablet 12.5 mg PO DAILY 0RF Referrals: Neha Lopez PA-C [Primary Care Provider] - Coding Level of Care Code ED Pump Installation And Servicer for Chg Fwd Exam Comprehensive
--- NOTE | 2021-08-25 13:20 | CT_ITS ---
WS: [id number] CT ABDOMEN AND PELVIS WITH CONTRAST HISTORY: abd pain TECHNIQUE: Imaging performed of the abdomen and pelvis with IV contrast. Single phase imaging of the abdomen. Coronal and sagittal reformats are submitted. All CT scans at [facility] use at [address] one of these dose optimization techniques: automated exposure control; mA and/or kV adjustment per patient size (includes targeted exams where dose is matched to clinical indication); or iterative re construction. IV CONTRAST: Omnipaque 300; 95 mL IV. Oral contrast: No DLP: 1782.36 mGy.cm COMPARISON: 08/20/2021 Lower thorax: Lung bases are clear. Heart is normal size. No hiatal hernia. Liver/biliary system: Normal size with no intrahepatic dilatation. Normal portal vein. Gallbladder: Normal. No gallstones or wall thickening. No pericholecystic fluid. Pancreas: Normal size pancreas and pancreatic duct. No adjacent inflammation. Spleen: Normal size spleen with granulomata. Adrenal glands: Normal. Right kidney: Normal. Left kidney: Mild perinephric stranding. No mass or obstruction. Aorta: Mild atherosclerosis with no aneurysm. Only very mild enhancement on opacification of the prox imal SMA and celiac axis. There is calcified plaque and soft plaque in the proximal SMA. No occlusion identified. Small amount of calcified plaque at the origins of the renal arteries. Lymphadenopathy: None. Free fluid: None. GI tract: Stomach is minimally distended with fluid. No small bowel obstruction. The appendix is norm al. There is moderate fecal retention and constipation. There is more focal colonic dilatation involv ing the descending and sigmoid colon. There is a focal area of stenosis and stricture involving the d istal sigmoid colon this was also described on the prior examination. Highly suspicious for underlyin g neoplasm until proven otherwise. No adjacent lymph node. This high-grade stricture is just anterior to the urinary bladder and the midline. Stricture extends over length of 4.0 cm with mild wall thick ening and hyperemia. Abdominal wall: Fat containing umbilical hernia. Pelvis: Well-distended urinary bladder. Mild prostate gland enlargement. No ascites. No adenopathy. Bones: Unremarkable. CT/CT abdomen pelvis w con* [id number] IMPRESSION: 1. High-grade stricture involving the distal sigmoid colon resulting in a mode rate obstruction of the more proximal colon and fecal retention. Stricture exte nds over length of 4.0 cm. Suspicious for neoplasm until proven otherwise. Pote ntially this could be a postinflammatory stricture but there is wall thickening and hyperemia. No adjacent lymph nodes. 2. No metastatic lesions in the liver or adrenal glands.
[2021-08-25 13:27] LABS: Urine Appearance Clear (CLEAR); Urine Color Dark Yellow (Yellow); pH Urine 6.5 (5-7)
[2021-08-25 13:28] LABS: Add Urine Culture? No; Add Urine Microscopic? YES; Bacteria Urine TRACE /hpf; Bilirubin Urine 1+ (Negative); Blood Urine Neg (Negative); Glucose Urine UA Norm (Normal); Ketones Urine 1+ (Negative); Leukocyte Esterase Urine Trace (Negative); Nitrate Urine Negative (Negative); Protein Urine Neg (Negative); Squamous Epithelial Cell Urine 0-4 /hpf (0-5); Urobilinogen Urine Norm (Negative); WBC Urine 0-4 /hpf (0-5)
[2021-08-25 13:38] VITALS: BP 160/100; PULSE 65; RESP 16; O2SAT 98
[2021-08-25 13:48] LABS: Basophils # 0.1 10^3/uL (0.0-0.1); Basophils % 0.6 %; Eosinophils # 0.1 10^3/uL (0.0-0.8); Eosinophils % 0.8 %; Hematocrit 45.8 % (42.0-52.0); Hemoglobin 15.4 g/dL (11.7-16.6); Lymphocytes # 2.4 10^3/uL (0.8-4.8); Lymphocytes % 27.4 %; Mean Corpuscular HGB Conc 33.6 g/dL (30.0-36.0); Mean Corpuscular Hemoglobin 30.7 pg (28.0-34.0); Mean Corpuscular Volume 91.4 fl (80-94); Mean Platelet Volume 10.1 fL (7.4-10.4); Monocytes # 0.8 10^3/uL (0.2-0.9); Neutrophils # 5.42 10^3/uL (1.8-7.7); Neutrophils % 61.7 %; Nucleated Red Blood Cells % 0 %; Platelet Count 332 10^3/cmm (130-400); Red Blood Count 5.01 10^6/uL (4.1-5.3); Red Cell Distribution Width 12.1 % (12.1-15.1); White Blood Count 8.8 10^3/uL (4.0-10.0)
[2021-08-25 14:11] LABS: Alanine Aminotransferase 16 U/L (0-41); Albumin Level 4.5 g/dL (3.5-5.2); Alkaline Phosphatase 71 IU/L (40-130); Anion Gap 15.9 (5-19); Aspartate Amino Transferase 19 U/L (0-40); Blood Urea Nitrogen 8 mg/dL (6-20); Calcium 9.6 mg/dL (8.5-10.5); Carbon Dioxide 24 mmol/L (22-29); Chloride 100 mmol/L (98-107); Globulin 2.2 g/dL (1.3-4.6); Glomerular Filtration Rate 99.3 mL/min (90-130); Glucose 118 mg/dL (65-115); Lipase 27 U/L (13-60); Osmolality Calculated 281 mOsm/kg (285-295); Potassium 3.9 mmol/L (3.5-5.1); Sodium 136 mmol/L (136-145); Total Bilirubin 0.3 mg/dL (0.15-1.2); Total Protein 6.7 g/dL (6.6-8.7)
[2021-08-25 14:39] LABS: Lactate (Lactic Acid level) 1.3 mmol/L (0.5-2.2)
[2021-08-25] MEDS: iohexol 300 mg/mL 100 mL Btl IV (14:50)
[2021-08-25 15:29] VITALS: BP 155/88; PULSE 70; RESP 18; O2SAT 98
[2021-08-25] MEDS: ondansetron 2 mg/ML SDV 2 mL 4 MG IVP (16:53)
[2021-08-25] MEDS: morphine 4 mg/mL SDV 1 mL 6 MG IVP (16:53)
[2021-08-25] MEDS: metroNIDAZOLE IV 500 MG/100 ML PREMIX 100 MG IV (17:01)
[2021-08-25] MEDS: ciprofloxacin 400 MG/200 ML PREMIX 200 MG IV (17:01)
[2021-08-25] MEDS: sodium chlor 0.9% + KCl 20 mEq 20 MEQ/1,000 ML BAG 125 MEQ IV (18:00)
[2021-08-25 18:01] VITALS: BP 113/92; PULSE 72; RESP 16; O2SAT 97
--- NOTE | 2021-08-25 19:49 | PC.NURSE ---
asked for order for pain medication and got morphine. Pt. refused morphine after drawing up medication , because last time it didn't work.
[2021-08-25] MEDS: HYDROmorphone 1 mg/mL INJ 1 mL IVP (20:00)
[2021-08-25 21:43] VITALS: BP 118/66; PULSE 82; RESP 18; O2SAT 98
[2021-08-26 14:06] LABS: Bacillus cereus group Not Detected (NOT DETECT); Bacillus subtillis group Not Detected (NOT DETECT); Corynebacterium Not Detected (NOT DETECT); Cutibacterium acnes (P.acnes) Not Detected (NOT DETECT); Enterococcus Not Detected (NOT DETECT); Enterococcus faecalis Not Detected (NOT DETECT); Enterococcus faecium Not Detected (NOT DETECT); Lactobacillus species Not Detected (NOT DETECT); Listeria Not Detected (NOT DETECT); Listeria monocytogenes Not Detected (NOT DETECT); Micrococcus Not Detected (NOT DETECT); Pan Candida Not Detected (NOT DETECT); Pan Gram-Negative Not Detected (NOT DETECT); Staphylococcus epidermidis Detected (NOT DETECT); Staphylococcus lugdunensis Not Detected (NOT DETECT); Staphylococcus species Detected (NOT DETECT); Streptococcus agalactiae Not Detected (NOT DETECT); Streptococcus anginosus group Not Detected (NOT DETECT); Streptococcus pneumoniae Not Detected (NOT DETECT); Streptococcus pyogenes Not Detected (NOT DETECT); Streptococcus species Not Detected (NOT DETECT); mecA Detected (NOT DETECT); mecC Not Detected (NOT DETECT)
== END 2021-08-25 21:46 | disposition short-term general hospital (02) ==
PROVIDERS: Emergency Medicine; Emergency Provider Family Medicine; PCP Physician Assistant
DX: K56.699 Other intestinal obstruction unspecified as to partial versus complete obstruction (principal); E11.9 Type 2 diabetes mellitus without complications; I10 Essential (primary) hypertension; E78.5 Hyperlipidemia, unspecified
CPT/HCPCS: 74177; 80053; 81001; 83605; 83690; 85025; 87040; 87150; 87205; 96365; 96366; 96367; 96375; 96376; 99285; J0744; J1170; J2270; J2405; Q9967; S0030

== ENCOUNTER → 2021-09-17 11:22 | Outpatient (BNVA) | payer MEDICARE, SELFPAY | PROVIDERS: PCP Physician Assistant; Visit Provider Internal Medicine | DX: F41.8 Other specified anxiety disorders (principal); C18.9 Malignant neoplasm of colon, unspecified; Z90.49 Acquired absence of other specified parts of digestive tract; R30.0 Dysuria | CPT/HCPCS: 81000 ==

== ENCOUNTER 2021-09-29 06:27 | Day surgery (SDC) | payer MEDICARE, SELFPAY ==
[2021-09-25 13:47] VITALS: BMI 28.0
[2021-09-29 06:50] VITALS: BP 129/84; PULSE 74; RESP 18; TEMP 36.2; O2SAT 98
--- NOTE | 2021-09-29 07:03 | P.ANESASSM_ITS ---
Pre-Anesthetic Assessment Height/Weight: Height 1.88 m Weight 98.883 kg Temp Pulse Resp BP Pulse Ox 97.2 F L 74 18 129/84 98 09/29/21 06:50 09/29/21 06:50 09/29/21 06:50 09/29/21 06:50 09/29/21 06:50 Preop Diagnosis: Known colon cancer Operation Date: 09/29/21 07:30 Proposed Procedures p Colonoscopy 70495/c18.9(Not Applicable) - Aleks Price MD Was Beta Karyn taken within 24 hours: N/A Was Clonidine taken within 24 hours: N/A Last intake: Intake Last Liquid Date 09/28/21 Last Liquid Time 23:00 Last Solid Date 09/28/21 Last Solid Time 16:00 Social Tobacco and No alcohol Exam alert, oriented x 3, clear to auscultation bilaterally and regular rate & rhythm Airway Submandibular: within normal limits Cervical ROM: within normal limits Mallampati: Class II History/ROS No significant history except as noted and No significant complaints Pulmonary None reported CV/HEM None reported None reported Hepatic None reported GI None reported Metabolic Diabetes Mellitus [facility] [place] Lower Back Pain and Osteoarthritis/DJD Neuropsych Anxiety PTSD Anesthetic Plan ASA status: 3 Anesthesia: Anesthesia Evaluation and MAC Risk of > 500 ml blood loss (7ml/kg in children): No Medications/Allergies Home Medications Medication Instructions Recorded Confirmed Last Taken Type lisinopril 20 mg tablet 20 mg PO BID 10/17/19 09/25/21 09/28/21 History albuterol sulfate 90 mcg/actuation 2 puff INHALATION Q4H PRN 01/03/20 09/25/21 Unknown History aerosol inhaler ibuprofen 200 mg tablet 600 mg PO PRN 01/03/20 09/29/21 09/27/21 History melatonin 10 mg tablet 30 mg PO BEDTIME 01/03/20 09/25/21 09/28/21 History pantoprazole 40 mg tablet,delayed 40 mg PO DAILY 01/03/20 09/25/21 09/28/21 History release (Protonix) cholecalciferol (vitamin D3) 1,250 50,000 unit PO .WEEKLY 11/25/20 09/29/21 09/26/21 History mcg (50,000 unit) capsule hydrochlorothiazide 12.5 mg tablet 12.5 mg PO DAILY 0409/25/21 09/28/21 History sertraline 25 mg tablet 25 mg PO DAILY 08/25/21 09/25/21 09/28/21 History simvastatin 20 mg tablet 20 mg PO QPM 08/25/21 09/25/21 09/28/21 History alprazolam 0.25 mg tablet 0.25 mg PO BID PRN #20 tab 09/17/21 09/25/21 09/28/21 Rx oxycodone-acetaminophen 10 mg-325 1 tab PO PRN PRN 09/25/21 09/29/21 09/29/21 History mg tablet Allergies Allergy/AdvReac Type Severity Reaction Status Date / Time metoclopramide [From Reglan] Allergy ADR/ALGY-Pa Verified 09/17/21 10:20 lpitations prochlorperazine Allergy ADR/ALGY-Pa Verified 09/17/21 10:20 [From Compazine] lpitations [facility] Anesthesia Medical History Diabetes Diarrhea Diastasis recti Erectile dysfunction Hemorrhoids History of meningitis Hyperlipidemia Hypertension Migraines Positive FIT (fecal immunochemical test) Umbilical hernia Surgical History History of arthroscopic knee surgery Family History Father Hypertension Diabetes Denies family history of Anesthesia complication Bleeding disorder Social History Smoking and tobacco status: current every day smoker Alcohol intake: never Marital status: / Current occupational status: disabled History of recent travel: No Data Anesthesia Cardiac Studies: No Data to Display
[2021-09-29] MEDS: sodium chloride 0.9% 1,000 ML 30 ML IV (07:11)
--- NOTE | 2021-09-29 07:32 | P.HP_ITS ---
Same Day Surgery H&P Indication for Procedure/HPI DATE OF PROCEDURE: September 29, 2021 CHIEF COMPLAINT/INDICATIONFOR SURGICAL PROCEDURE: History of colon cancer and partial colectomy. PREOP DIAGNOSIS: Known colon cancer PLANNED PROCEDURE: Operation Date: 09/29/21 07:30 Proposed Procedures p Colonoscopy 54730/c18.9(Not Applicable) - Aleks Price MD Medications/Allergies* Home Medications Medication Instructions Recorded Confirmed Type lisinopril 20 mg tablet 20 mg PO BID 10/17/19 09/25/21 History albuterol sulfate 90 mcg/actuation 2 puff INHALATION Q4H PRN 01/03/20 09/25/21 History aerosol inhaler ibuprofen 200 mg tablet 600 mg PO PRN 01/03/20 09/29/21 History melatonin 10 mg tablet 30 mg PO BEDTIME 01/03/20 09/25/21 History pantoprazole 40 mg tablet,delayed 40 mg PO DAILY 01/03/20 09/25/21 History release (Protonix) cholecalciferol (vitamin D3) 1,250 50,000 unit PO .WEEKLY 11/25/20 09/29/21 History mcg (50,000 unit) capsule hydrochlorothiazide 12.5 mg tablet 12.5 mg PO DAILY 08/25/21 09/25/21 History sertraline 25 mg tablet 25 mg PO DAILY 08/25/21 09/25/21 History simvastatin 20 mg tablet 20 mg PO QPM 08/25/21 09/25/21 History oxycodone-acetaminophen 10 mg-325 1 tab PO PRN PRN 09/25/21 09/29/21 History mg tablet Allergies/Adverse Reactions Allergy/AdvReac Type Severity Reaction Status Date / Time metoclopramide [From Reglan] Allergy ADR/ALGY-Pa Verified 09/17/21 10:20 lpitations prochlorperazine Allergy ADR/ALGY-Pa Verified 09/17/21 10:20 [From Compazine] lpitations Current Medications: Generic Name Dose Route Start Last Admin Trade Name Freq PRN Reason Stop Dose Admin Sodium Chloride 1,000 mls @ 30 mls/hr 09/29/21 06:45 09/29/21 07:11 Sodium Chloride 0.9% IV 09/30/21 06:44 30 mls/hr .Q24H OSCAR Administration Pertinent History/Comorbid Conditions* Medical History (Updated 09/17/21 @ 11:03 by Aleks Price MD) Diabetes Diarrhea Diastasis recti Erectile dysfunction Hemorrhoids History of meningitis Hyperlipidemia Hypertension Migraines Positive FIT (fecal immunochemical test) Umbilical hernia Surgical History (Updated 09/17/21 @ 11:03 by Aleks Price MD) History of arthroscopic knee surgery Family History (Updated 10/17/19 @ 11:43 by Daena Valencia RN) Diabetes Father Hypertension Father Denies family history of Anesthesia complication Bleeding disorder Social History Smoking and tobacco status: current every day smoker Alcohol intake: never Marital status: / Current occupational status: disabled History of recent travel: No Pertinent Exam Findings alert, oriented x 3, clear to auscultation bilaterally, regular rate & rhythm, operative site marked and procedure specific exam findings Recommendations Surgery/Procedure today Coding Level of Care Code Acute Metal Fence Erector for Oralia Garduno
[2021-09-29 07:48] VITALS: BP 108/58; PULSE 69; RESP 18; TEMP 36.9; O2SAT 98
[2021-09-29 07:55] VITALS: BP 98/64; PULSE 79; RESP 18; O2SAT 100
[2021-09-29 08:05] VITALS: BP 109/67; PULSE 61; RESP 18; O2SAT 98
--- NOTE | 2021-09-29 13:22 | ANE.PACU2 ---
Inpatient post-anesthesia follow up: Airway intact: Yes Vital signs: Temperature 98.4 F Pulse Rate 61 Respiratory Rate 18 Blood Pressure 109/67 Pulse Oximetry 98 Oxygen Delivery Me thod Room Air Oxygen Flow Rate Fraction of Inspir ed Oxygen Hydration adequate: Yes Nausea and vomiting: No Pain level: 1 Mental status: Baseline
== END 2021-09-29 08:16 | disposition home or self-care (01) ==
PROVIDERS: Visit Provider Internal Medicine
PROC: 0DJD8ZZ Inspection of Lower Intestinal Tract, Via Natural or Artificial Opening Endoscopic (ICD-10-PCS; CPT 45378; principal; 2021-09-29 07:30)
DX: C18.9 Malignant neoplasm of colon, unspecified (principal); Z90.49 Acquired absence of other specified parts of digestive tract; E11.9 Type 2 diabetes mellitus without complications; E78.5 Hyperlipidemia, unspecified; I10 Essential (primary) hypertension; F17.210 Nicotine dependence, cigarettes, uncomplicated
CPT/HCPCS: 44388; J2704; J7030

== ENCOUNTER 2022-12-22 13:21 | Inpatient (IN) | payer MEDICARE, SELFPAY ==
[2022-12-22] VITALS (19 sets, daily range): BP systolic 90–128; BP diastolic 42–94; PULSE 57–81; RESP 14–20; TEMP 36.4–36.6; O2SAT 90–98; BMI 29.5
--- NOTE | 2022-12-22 13:33 | ECG_ITS ---
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 Measurements Intervals [place] Rate: 64 P: 25 AL: 156 QRS: 46 QRSD: 114 T: 3 QT: 454 QTc: 469 Interpretive Statements SINUS RHYTHM PROBABLE INFERIOR MYOCARDIAL INFARCTION , PROBABLY OLD [35 ms Q WAVE IN II/aVF] Compared to ECG 08/20/2021 15:22:05 Myocardial infarct finding now present Sinus bradycardia no longer present Prolonged QT interval no longer present Electronically Signed On 12-22-2022 17:43:03 CDT by Onofre Crawford M.D. [id number]
--- NOTE | 2022-12-22 13:33 | XRR_ITS ---
PROCEDURE INFORMATION: Exam: XR Chest Exam date and time: 12/22/2022 1:53 PM Age: 62 years old Clinical indication: Fever; Additional info: Fever AMS TECHNIQUE: Imaging protocol: Radiologic exam of the chest. Views: 1 view. COMPARISON: CT chest con [id number] 08/26/2021 10:22 PM FINDINGS: Lungs: Ill-defined opacity in the left mid to lower lung. Right lung is clear. Pleural spaces: There is no pleural effusion or pneumothorax. Heart/Mediastinum: Cardiomediastinal contours are unremarkable. Bones/joints: Bones are unremarkable. XR/XR chest 1V portable [id number] IMPRESSION: Ill-defined opacity in the left lower lung is suspicious for pneumonia.
--- NOTE | 2022-12-22 13:41 | ED_ITS ---
HPI - Altered Mental Status General: Chief Complaint: Altered Mental Status Stated Complaint: stroke like symptoms Time Seen by Provider: 12/22/22 13:22 History of Present Illness: Patient presents to the ER with complaints of altered mental status, weakness, fever up to 101.6. Patient is historian as well as family member. Patient states he get up to about yesterday. Then he just are going downhill. Member says that they talked him yesterday and he just was not making a lot of sense and they tried calling him today but he would not answer the phone so they had to go beat on his door to get him to answer. When he answered he was not making sense that he is acting like he was not comprehending anything. Patient does have a history of multiple CVAs in the past. Unknown last well time. Review of Systems General: Reports: 10 or more systems reviewed and unremarkable except in HPI and below PFSH ED PFSH: Medical History Diabetes Diarrhea Diastasis recti Erectile dysfunction Hemorrhoids History of meningitis Hyperlipidemia Hypertension Migraines Positive FIT (fecal immunochemical test) Umbilical hernia Surgical History History of arthroscopic knee surgery Family History Father Hypertension Diabetes Denies family history of Anesthesia complication Bleeding disorder Social History Smoking and tobacco status: current every day smoker Alcohol intake: never Substance/Drug Use: never Marital status: / Current occupational status: disabled Physical Exam Const: COMMON NORMALS: no acute distress, healthy appearing, alert and well nourished HENMT: COMMON NORMALS: normocephalic, atraumatic, external ears normal, Normal external nose present and moist oral mucous membranes HEAD & SCALP: normocephalic and atraumatic NOSE: Normal external nose present EXTERNAL EAR: Yes external ears normal Eye: COMMON NORMALS: Equal, round and reactive pupils present, EOMs intact bilaterally, conjunctivae normal and no scleral icterus CONJUNCTIVA: Yes conjunctivae normal PUPIL: Yes Equal, round and reactive pupils present Neck/C-Spine: COMMON NORMALS: full ROM, no lymphadenopathy, supple, no meningeal signs, no JVD and Thyroid normal THYROID: Thyroid normal Lymph: LYMPHATIC: no lymphadenopathy noted Chest: COMMONS NORMALS: normal inspection of the chest and normal palpation of entire chest wall Resp: COMMON NORMALS: normal respiratory effort, No retractions and No use of accessory muscles; negative for clear to auscultation bilaterally (Mild rhonchi throughout) AUSCULTATION: not clear to auscultation bilaterally (Mild rhonchi throughout) Cardio: COMMON NORMALS: no JVD, regular rhythm, S1 normal heart sound present, S2 normal heart sound present, No gallops present (Cardio), No clicks present (Cardio) and No rub (Cardio) RHYTHM: regular rhythm HEART SOUNDS: S1 normal heart sound present and S2 normal heart sound present GI: COMMON NORMALS: Normal to inspection, nondistended, normoactive bowel sounds present, Soft to palpation, non-tender, No hepatosplenomegaly present and no masses PALPATION: Yes Soft to palpation and Yes No hepatosplenomegaly present : COMMON NORMALS: Yes no CVA tenderness BLADDER/KIDNEY EXAM: Yes no CVA tenderness Back/Pelvis: COMMON NORMALS: no CVA tenderness Extremity: OTHER: Trace edema to bilateral lower extremities Neuro: SENSORIUM/ORIENTATION: Yes alert MENINGEAL SIGNS: Yes no meningeal signs Course Vital Signs: Vital signs: Vital Signs Temperature 97.6 F 12/22/22 15:00 Pulse Rate 66 12/22/22 16:45 Respiratory Rate 14 12/22/22 15:45 Blood Pressure 113/68 12/22/22 16:30 Pulse Oximetry 96 12/22/22 16:15 Oxygen Delivery Me thod Room Air 12/22/22 15:00 MDM - Altered Mental Status Medical Decision Making Patient presents to the ER with altered mental status. Lab work and chest x-ray and head CT were obtained. Findings were consistent with left lower lobe pneumonia. Lactic acid procalcitonin was normal. Dr. Franks was consulted. Patient will be admitted to [facility]. She was given 1 L normal saline and 3.375 g of Zosyn in the ER. Differential Diagnosis Likely altered mental status; Unlikely alcoholic intoxication, delirium, dementia, hypoglycemia, hyponatremia, subarachnoid hemorrhage or sepsis Medical Records I reviewed the patient's medical records. Lab Data I reviewed the patient's lab results. 12/22/22 13:39 12/22/22 13:39 Radiology Impressions Chest X-Ray 12/22/22 13:33 IMPRESSION: Ill-defined opacity in the left lower lung is suspicious for pneumonia. ADDENDUM: 12/22/22 1518 THIS REPORT CONTAINS FINDINGS THAT MAY BE CRITICAL TO PATIENT CARE. The findings were verbally communicated via telephone conference with Juwan Francis at 3:17 PM CDT on 12/22/2022. The findings were acknowledged and understood. Head CT 12/22/22 14:56 IMPRESSION: No acute intracranial abnormality. Laboratory Results WBC 10.7 10^3/uL (4.0-10.0) H 12/22/22 13:39 RBC 3.78 10^6/uL (4.1-5.3) L 12/22/22 13:39 Hgb 12.0 g/dL (11.7-16.6) 12/22/22 13:39 Hct 37.8 % (42.0-52.0) L 12/22/22 13:39 MCV 100.0 fl (80-94) H 12/22/22 13:39 MCH 31.7 pg (28.0-34.0) 12/22/22 13:39 MCHC 31.7 g/dL (30.0-36.0) 12/22/22 13:39 RDW 14.2 % (12.1-15.1) 12/22/22 13:39 Plt Count 190 10^3/cmm (130-400) 12/22/22 13:39 MPV 10.9 fL (7.4-10.4) H 12/22/22 13:39 Neut % (Auto) 70.4 % 12/22/22 13:39 Lymph % (Auto) 19.5 % 12/22/22 13:39 [place] % (Auto) 7.2 % 12/22/22 13:39 Eos % (Auto) 1.8 % 12/22/22 13:39 Baso % (Auto) 0.6 % 12/22/22 13:39 Neut # (Auto) 7.52 10^3/uL (1.8-7.7) 12/22/22 13:39 Lymph # (Auto) 2.1 10^3/uL (0.8-4.8) 12/22/22 13:39 [place] # (Auto) 0.8 10^3/uL (0.2-0.9) 12/22/22 13:39 Eos # (Auto) 0.2 10^3/uL (0.0-0.8) 12/22/22 13:39 Baso # (Auto) 0.1 10^3/uL (0.0-0.1) 12/22/22 13:39 Nucleated RBC % (auto) 0 % 12/22/22 13:39 Nucleated RBCs # 0.0 /100WBC 12/22/22 13:39 PT 13.90 SECONDS (12.1-14.9) 12/22/22 13:39 INR 1.04 (0.8-1.2) 12/22/22 13:39 Sodium 137 mmol/L (136-145) 12/22/22 13:39 Potassium 4.2 mmol/L (3.5-5.1) 12/22/22 13:39 Chloride 103 mmol/L (98-107) 12/22/22 13:39 Carbon Dioxide 22 mmol/L (22-29) 12/22/22 13:39 Anion Gap 16.2 (5-19) 12/22/22 13:39 BUN 34 mg/dL (8-23) H 12/22/22 13:39 Creatinine 1.3 mg/dL (0.7-1.2) H 12/22/22 13:39 GFR Calculation 56.3 mL/min (90-130) L 12/22/22 13:39 Glucose 79 mg/dL (65-115) 12/22/22 13:39 POC Glucose 80 mg/dL (70-110) 12/22/22 13:52 Calculated Osmolality 291 mOsm/kg (285-295) 12/22/22 13:39 Lactic Acid 1.0 mmol/L (0.5-2.2) 12/22/22 13:39 Calcium 9.4 mg/dL (8.5-10.5) 12/22/22 13:39 Magnesium 2.2 mg/dL (1.7-2.3) 12/22/22 13:39 Total Bilirubin 0.3 mg/dL (0.15-1.2) 12/22/22 13:39 AST 56 U/L (0-40) H 12/22/22 13:39 ALT 16 U/L (0-41) 12/22/22 13:39 Alkaline Phosphatase 52 U/L (40-130) 12/22/22 13:39 Total Protein 6.5 g/dL (6.6-8.7) L 12/22/22 13:39 Albumin 4.1 g/dL (3.5-5.2) 12/22/22 13:39 Globulin 2.4 g/dL (1.3-4.6) 12/22/22 13:39 Procalcitonin 0.30 ng/mL (0-0.5) 12/22/22 13:39 Urine Color Yellow (Yellow) 12/22/22 15:28 Urine Appearance Clear (CLEAR) 12/22/22 15:28 Urine pH 5 (5-7) 12/22/22 15:28 Ur Specific [place] 1.010 (1.005-1.030) 12/22/22 15:28 Urine Protein Neg (Negative) 12/22/22 15:28 Urine Glucose (UA) Norm (Normal) 12/22/22 15:28 Urine Ketones Negative (Negative) 12/22/22 15:28 Urine Blood Neg (Negative) 12/22/22 15:28 Urine Nitrate Negative (Negative) 12/22/22 15:28 Urine Bilirubin Neg (Negative) 12/22/22 15:28 Urine Urobilinogen Norm mg/dL (Negative) 12/22/22 15:28 Ur Leukocyte Esterase Negative (Negative) 12/22/22 15:28 Urine Opiates Screen Positive ng/mL (Negative) H 12/22/22 15:28 Ur Barbiturates Screen Negative ng/mL (Negative) 12/22/22 15:28 Ur Phencyclidine Scrn Negative ng/mL (Negative) 12/22/22 15:28 Ur Amphetamines Screen Negative ng/mL (Negative) 12/22/22 15:28 U Benzodiazepines Scrn Positive ng/mL (Negative) H 12/22/22 15:28 Urine Cocaine Screen Negative ng/mL (Negative) 12/22/22 15:28 U Marijuana (THC) Screen Negative ng/mL (Negative) 12/22/22 15:28 EKG Data EKG 1: I personally reviewed and interpreted this EKG as follows: EKG interpretation date: 12/22/22 EKG interpretation time: 13:41 Prior EKG tracings: not available for review Interpretation: EKG shows normal sinus rhythm at 64 beats minute, [place] interval 156, QRS duration 114, QTc of 463, Q waves in 2 and aVF Discharge Plan Discharge Patient Disposition: Admitted As Inpatient Clinical Impression: Pneumonia Qualifiers: Pneumonia type: due to unspecified organism Laterality: left Lung location: lower lobe of lung Qualified Code(s): J18.9 - Pneumonia, unspecified organism Altered mental status Qualifiers: Altered mental status type: disorientation Qualified Code(s): R41.0 - Disorientation, unspecified Condition: Stable Coding Level of Care Code ED 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
[2022-12-22] MEDS: sodium chloride 0.9% 1,000 ML 999 ML IV (14:01)
[2022-12-22 14:05] LABS: Basophils # 0.1 10^3/uL (0.0-0.1); Basophils % 0.6 %; Eosinophils # 0.2 10^3/uL (0.0-0.8); Eosinophils % 1.8 %; Hematocrit 37.8 % (42.0-52.0); Lymphocytes # 2.1 10^3/uL (0.8-4.8); Lymphocytes % 19.5 %; Mean Corpuscular HGB Conc 31.7 g/dL (30.0-36.0); Mean Corpuscular Hemoglobin 31.7 pg (28.0-34.0); Mean Platelet Volume 10.9 fL (7.4-10.4); Monocytes # 0.8 10^3/uL (0.2-0.9); Monocytes % 7.2 %; Neutrophils # 7.52 10^3/uL (1.8-7.7); Neutrophils % 70.4 %; Nucleated Red Blood Cells % 0 %; Platelet Count 190 10^3/cmm (130-400); Red Blood Count 3.78 10^6/uL (4.1-5.3); Red Cell Distribution Width 14.2 % (12.1-15.1); White Blood Count 10.7 10^3/uL (4.0-10.0)
[2022-12-22 14:21] LABS: Glucose Point of Care 80 mg/dL (70-110)
[2022-12-22 14:22] LABS: Alanine Aminotransferase 16 U/L (0-41); Albumin Level 4.1 g/dL (3.5-5.2); Alkaline Phosphatase 52 U/L (40-130); Aspartate Amino Transferase 56 U/L (0-40); Blood Urea Nitrogen 34 mg/dL (8-23); Calcium 9.4 mg/dL (8.5-10.5); Carbon Dioxide 22 mmol/L (22-29); Chloride 103 mmol/L (98-107); Globulin 2.4 g/dL (1.3-4.6); Glomerular Filtration Rate 56.3 mL/min (90-130); Glucose 79 mg/dL (65-115); Magnesium 2.2 mg/dL (1.7-2.3); Osmolality Calculated 291 mOsm/kg (285-295); Sodium 137 mmol/L (136-145); Total Bilirubin 0.3 mg/dL (0.15-1.2); Total Protein 6.5 g/dL (6.6-8.7)
[2022-12-22 14:26] LABS: Anion Gap 16.2 (5-19); Potassium 4.2 mmol/L (3.5-5.1)
--- NOTE | 2022-12-22 14:27 | PC.PHAR ---
PT STATES HE REMEMBERS TAKING ALL HIS BEDTIME MEDS ON WEDNESDAY. PT IS NOT SURE WHAT MORNING MEDS HE HAS TAKEN TODAY. MATCHED PATIENTS' BOTTLES TO MED LIST AND WENT OVER ALL MEDS WITH PT. 12/22/22
[2022-12-22 14:33] LABS: INR 1.04 (0.8-1.2)
--- NOTE | 2022-12-22 14:56 | CTR_ITS ---
PROCEDURE INFORMATION: Exam: CT Head Without Contrast Exam date and time: 12/22/2022 3:04 PM Age: 62 years old Clinical indication: Altered mental status/memory loss; Additional info: AMS TECHNIQUE: Imaging protocol: Computed tomography of the head without contrast. Radiation optimization: All CT scans at this facility use at least one of these dose optimization techniques: automated exposure control; mA and/or kV adjustment per patient size (includes targeted exams where dose is matched to clinical indication); or iterative reconstruction. REPORTING DATA: Count of CT and Cardiac NM exams in prior 12 months: This patient has received 0 known CTs and 0 known cardiac nuclear medicine studies in the 12 months prior to the current study. COMPARISON: CT head wo con* [id number] 07/09/2019 1:33 AM RADIATION DOSE METRICS: Total DLP (mGy-cm): 1179.83 FINDINGS: Brain: There is diffuse cerebral atrophy and chronic microvascular white matter disease. There is no acute intracranial hemorrhage. Cerebral ventricles: There is mild ex vacuo dilation of the lateral ventricles. The basal cisterns are unremarkable. Paranasal sinuses: The paranasal sinuses are clear. Mastoid air cells: The mastoid air cells are clear. Bones/joints: The skull is unremarkable. Soft tissues: The visible extracranial soft tissues are unremarkable. CT/CT head wo con* [id number] IMPRESSION: No acute intracranial abnormality.
[2022-12-22] MEDS: piperacillin-tazobactam 3.375 GM in sodium chloride 0.9% (plus) 50 ML IV (15:29)
[2022-12-22 15:34] LABS: Add Urine Microscopic? NO; Charge for UA Resulting for Rev
[2022-12-22 15:37] LABS: Bilirubin Urine Neg (Negative); Blood Urine Neg (Negative); Glucose Urine UA Norm (Normal); Ketones Urine Negative (Negative); Leukocyte Esterase Urine Negative (Negative); Nitrate Urine Negative (Negative); Protein Urine Neg (Negative); Urine Appearance Clear (CLEAR); Urine Color Yellow (Yellow); Urobilinogen Urine Norm (Negative); pH Urine 5 (5-7)
[2022-12-22 15:46] LABS: Amphetamines Screen Urine Negative (Negative); Barbiturates Screen Urine Negative (Negative); Benzodiazepines Screen Urine Positive (Negative); Cocaine Screen Urine Negative (Negative); Opiate Screen Urine Positive (Negative); PCP Screen Urine Negative (Negative); THC Screen Urine Negative (Negative)
--- NOTE | 2022-12-22 17:08 | P.HP_ITS ---
Providers/Chief Complaint Primary Care Provider: Mandeep Quezada Chief Complaint: stroke like symptoms History of Present Illness Milan Hua is a 62 year old male with a past medical history of colon cancer, history of multiple CVAs in the last 5 months, history of multiple hospitalizations at [facility] for the last 5 months, hypertension, hyperlipidemia, history of irregular heartbeat, history of chronic kidney disease, who presents to [facility] for altered mental status. Currently patient is alert to person, to place, not to time he tells me that it is October 03, 1957 and that Bronson is the president, he recognizes his son and [id number] at bedside, he tells me that Wednesday, because his son is in the hospital normally he is at work during the weekdays. When asked why he is here in the hospital he tells me that since getting out of [facility] in [place] he has been feeling weak, fatigued, he had a poor appetite he has had a couple of falls but he does not remember when, he tells me that his family tried to call him this morning, but he did not car pick up driver the phone. He tells me that for the last 5 to 6 months he has been hospitalized multiple times at [facility], he has had 5 strokes he tells me, he had acute renal failure almost requiring dialysis, he had C. difficile, he had an irregular heartbeat, he has had multiple tests, he tells me that he took all his medications, he tells me that the reason that he had only strokes was because of stress, has been having a lot of stress with the family issues at home, he does report falling, but does not remember when, denies a history of A-fib is not on any blood thinners, does report fevers and chills intermittently, but is not exactly when, he tells me he has a history of colon cancer, had a resection had a stoma with a stoma leak re quiring multiple revision surgeries, denies any recent bloody or black stools, denies any dysuria, denies any hematuria, he tells me that after his last CVA at [facility] he has residual left-sided weakness left upper and left lower extremity weakness, he is able to ambulate on his own able to take care of himself. His family tells me that he has been doing well since he got to the hospital, but this morning they tried to call him and he would not car pick up driver the phone, when family numbers found him at home he was very confused, not evaluation Answer questions appropriately, so they brought him to the ER. Currently he is normotensive, currently afebrile, on room air, he has residual left upper left lower extremity weakness, strength 4-5, bilateral upper and lower extremities on the left, no facial droop, very mild slurring of his words, he denies any neck pain, no neck stiffness, no visual deficits, no nausea, no vomiting I asked family members if there is any significant changes in his his weakness or speech, however they decline any significant change except his confusion which is new, in the emergency room they performed a chest x-ray with findings of pneumonia, concerns for altered mental status related to pneumonia hospice team was called for admission Review of Systems Const: Reports: fever(s), chills, change in appetite, fatigue and malaise Eyes: Denies: change in vision ENMT: Denies: throat pain Card: Reports: palpitations and irregular heart rhythm; Denies: chest pain, lightheadedness or syncope Resp: Reports: non-productive cough; Denies: dyspnea GI: Denies: abdominal pain, nausea or vomiting : Denies: flank pain or difficulty urinating Musc: Denies: neck pain Skin/Breast: Denies: rash Neuro: Reports: weakness in extremities, lack of coordination, frequent falls and confusion; Denies: headache(s), numbness in extremities or sensory changes Psych: Denies: anxiety Medications/Allergies Home Medications Medication Instructions Recorded Confirmed Last Taken Type lisinopril 20 mg tablet 20 mg PO BID 10/17/19 12/22/22 09/28/21 History albuterol sulfate 90 mcg/actuation 2 puff inhalation Q4H PRN 01/03/20 12/22/22 Unknown History aerosol inhaler Shortness Of Breath ibuprofen 200 mg tablet 600 mg PO PRN PRN Pain 01/03/20 12/22/22 09/27/21 History melatonin 10 mg tablet 30 mg PO BEDTIME 01/03/20 12/22/22 12/21/22 History pantoprazole 40 mg tablet,delayed 40 mg PO DAILY 01/03/20 12/22/22 12/21/22 History release (Protonix) cholecalciferol (vitamin D3) 1,250 50,000 unit PO .WEEKLY 11/25/20 12/22/22 12/16/22 History mcg (50,000 unit) capsule hydrochlorothiazide 12.5 mg tablet 12.5 mg PO DAILY 08/25/21 12/22/22 09/28/21 History alprazolam 1 mg tablet 0.5 - 1 mg PO TID 12/22/22 12/22/22 Unknown History amlodipine 2.5 mg tablet 2.5 mg PO DAILY 12/22/22 12/22/22 Unknown History atorvastatin 80 mg tablet 80 mg PO BEDTIME 12/22/22 12/22/22 12/21/22 History bupropion HCl 150 mg 24 hr tablet, 150 mg PO .QAM 12/22/22 12/22/22 Unknown History extended release hydralazine 50 mg tablet 50 mg PO QID 12/22/22 12/22/22 Unknown History hydrocodone 10 mg-acetaminophen 1 tab PO Q4H PRN Pain 12/22/22 12/22/22 Unknown History 325 mg tablet loperamide 2 mg capsule 4 mg PO QID PRN Diarrhea 12/22/22 12/22/22 Unknown History losartan 50 mg tablet 50 mg PO DAILY 12/22/22 12/22/22 Unknown History potassium chloride 20 mEq 20 meq PO BEDTIME 12/22/22 12/22/22 12/21/22 History tablet,extended release(part/cryst) sertraline 100 mg tablet 200 mg PO DAILY 12/22/22 12/22/22 Unknown History topiramate 25 mg tablet 25 mg PO BID 12/22/22 12/22/22 Unknown History trazodone 50 mg tablet 50 - 150 mg PO BEDTIME 12/22/22 12/22/22 12/21/22 History Allergies Allergy/AdvReac Type Severity Reaction Status Date / Time metoclopramide [From Reglan] Allergy ADR/ALGY-Pa Verified 12/22/22 13:25 lpitations prochlorperazine Allergy ADR/ALGY-Pa Verified 12/22/22 13:25 [From Compazine] lpitations PFSH Acute PFSH: Medical History (Updated 12/22/22 @ 17:22 by Srikanth Franks MD) Diabetes Diarrhea Diastasis recti Erectile dysfunction Hemorrhoids History of CVA (cerebrovascular accident) History of meningitis Hyperlipidemia Hypertension Migraines Positive FIT (fecal immunochemical test) Umbilical hernia Surgical History History of arthroscopic knee surgery Family History Father Hypertension Diabetes Denies family history of Anesthesia complication Bleeding disorder Social History Smoking and tobacco status: current every day smoker Alcohol intake: never Substance/Drug Use: never Marital status: / Current occupational status: disabled Vitals/I&O/Wt Last Vital Signs Temp 97.6 F 12/22/22 15:00 Pulse 66 12/22/22 16:45 Resp 14 12/22/22 15:45 BP 113/68 12/22/22 16:30 Pulse Ox 96 12/22/22 16:15 O2 Del Method Room Air 12/22/22 15:00 12/22/22 12/22/22 12/22/22 06:59 14:59 22:59 Intake Total 1000 / 1000 Balance 1000 / 1000 Weight last 48 hrs Weight 104.326 kg Physical Exam Const: COMMON NORMALS: no acute distress EXAM LIMITATIONS: altered mental status GENERAL APPEARANCE: cooperative and well kempt ORIENTATION/CONSCIOUSNESS: Yes awake, Yes oriented to person and Yes oriented to place; not oriented to time HENMT: COMMON NORMALS: normocephalic and Normal external nose present HEAD & SCALP: normocephalic FACE & SINUS: normal facial exam THROAT: posterior oropharynx normal Eye: COMMON NORMALS: Equal, round and reactive pupils present, EOMs intact bilaterally, conjunctivae normal and no scleral icterus CONJUNCTIVA: Yes conjunctivae normal PUPIL: Yes Equal, round and reactive pupils present Neck/C-Spine: COMMON NORMALS: full ROM, no lymphadenopathy, no meningeal signs, no JVD, Thyroid normal and No carotid bruits THYROID: Thyroid normal Lymph: LYMPHATIC: no lymphadenopathy noted Chest: COMMONS NORMALS: normal inspection of the chest Resp: COMMON NORMALS: normal respiratory effort, No retractions, No use of accessory muscles and clear to auscultation bilaterally AUSCULTATION: clear to auscultation bilaterally Cardio: COMMON NORMALS: regular rate, regular rhythm, S1 normal heart sound present, S2 normal heart sound present, No murmurs present (Cardio) and Peripheral pulses 2+ throughout RATE: regular rate RHYTHM: regular rhythm HEART SOUNDS: S1 normal heart sound present and S2 normal heart sound present PERIPHERAL PULSES: Peripheral pulses 2+ throughout GI: COMMON NORMALS: Normal to inspection, nondistended, normoactive bowel sounds present, Soft to palpation and non-tender : BLADDER/KIDNEY EXAM: Yes no CVA tenderness Back/Pelvis: COMMON NORMALS: no CVA tenderness Extremity: COMMON NORMALS: normal to inspection, full ROM, capillary refill normal, no calf tenderness and no pedal edema Neuro: COMMON NORMALS: CN's II-XII intact bilaterally, moves all extremities and no sensory deficits noted MENINGEAL SIGNS: Yes no meningeal signs OTHER: Left upper extremity strength 4 out of 5 Left lower extremity strength 4-5 Mild slurring of his words Psych: COMMON NORMALS: cooperative APPEARANCE: Yes well kempt THOUGHT PROCESS: Normal thought process present Skin: COMMON NORMALS: turgor normal and no jaundice GENERAL SKIN EXAM: tu rgor normal Data 12/22/22 13:39 12/22/22 13:39 Micro: Microbiology 12/22/22 13:43 Blood Culture - Preliminary Blood SPECIMEN COLLECTED 12/22/22 13:43 Blood Culture - Preliminary Blood SPECIMEN COLLECTED CXR: My impression: Left lower lobe pneumonia EKG 1: My Interpretation: Normal sinus rhythm, no acute ST-T wave changes A&P Assessment and plan (1) Pneumonia: Qualifiers: Laterality: left Lung location: lower lobe of lung Pneumonia type: due to unspecified organism Qualified Code(s): J18.9 - Pneumonia, unspecified organism (2) Altered mental status: Qualifiers: Altered mental status type: disorientation Qualified Code(s): R41.0 - Disorientation, unspecified (3) Obesity: (4) Hypertension: (5) Hyperlipidemia: (6) History of CVA (cerebrovascular accident): (7) KERRY (acute kidney injury): Plan Altered mental status -Possibly secondary to pneumonia -Neurochecks, NIH stroke scale, aspiration precautions Pneumonia -Vancomycin, cefepime -Sputum cultures, blood cultures, respiratory viral panel, MRSA nares PCR Acute kidney injury -IV fluids History of 5 CVAs in the last 6 months -With residual left-sided weakness left upper and left lower extremity weakness -Currently his family and he denies any new weakness, or slurring of his words, word finding difficulty or paresthesias -Telemetry monitoring -Neurochecks, aspiration precautions, night stroke scale -Aspirin, statin -Will await records from [facility] History of C. difficile, complaints of diarrhea, stool studies History of type 2 diabetes mellitus, A1c Hypertension continue home medications Attestations 2 Medical Necessity Statement*: Patient requires hospitalization for altered mental status, pneumonia, KERRY, inpatient, greater than 2 midnights Diagnoses Pneumonia J18.9 Laterality: left Lung location: lower lobe of lung Pneumonia type: due to unspecified organism Altered mental status R41.0 Altered mental status type: disorientation Obesity E66.9 Hypertension I10 Hyperlipidemia E78.5 History of CVA (cerebrovascular accident) Z86.73 KERRY (acute kidney injury) N17.9
[2022-12-22] MEDS: acetaminophen 500 mg Tablet 1000 MG PO (17:35)
[2022-12-22 17:59] LABS: C Reactive Protein 41.5 mg/L (0.0-4.9); NT Pro B Type Natriuretic Pept 270 pg/mL (0-125)
--- NOTE | 2022-12-22 17:59 | ECG_ITS ---
[facility] Test Date: 2022-12-22 Pat Name: Milan Hua Department: Room: 278 Gender: Male Palliative Senior Np: : 1960 Requested By: Srikanth Franks Order Number: [id number] Elliott MD: Onofre Crawford M.D. Measurements Intervals [place] Rate: 67 P: 50 NH: 160 QRS: 58 QRSD: 126 T: 52 QT: 468 QTc: 497 Interpretive Statements SINUS RHYTHM Compared to ECG 12/22/2022 13:41:37 Myocardial infarct finding no longer present Electronically Signed On 12-22-2022 22:58:53 CDT by Onofre Crawford M.D. [id number]
[2022-12-22 18:23] LABS: ABG PCO2 43.9 mmHg (35-45); Arterial Blood Gas Hematocrit 37.5 % (42-52); Base Excess ABG -4.5 mmol/L (-2.0-2.0); Blood Gas Operator Identificat AMH; Blood Gas Sample Site Brachial, right; Blood Gas Sample Type Arterial; HCO3 ABG 21.8 mmol/L (22-26); Oxygen Device ROOM AIR; PO2 ABG 57.5 mmHg (80.0-100.0)
[2022-12-22 18:41] LABS: Troponin(5th) Baseline 22 ng/L (0-15)
--- NOTE | 2022-12-22 19:37 | ECG_ITS ---
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 Measurements Intervals [place] Rate: 65 P: 20 MN: 166 QRS: 49 QRSD: 118 T: 0 QT: 460 QTc: 478 Interpretive Statements SINUS RHYTHM POSSIBLE INFERIOR MYOCARDIAL INFARCTION , OF INDETERMINATE AGE [30 ms Q WAVE IN II/aVF] Compared to ECG 12/22/2022 17:59:05 Myocardial infarct finding now present Electronically Signed On 12-22-2022 22:59:33 CDT by Onofre Crawford M.D. [id number]
[2022-12-22 19:44] LABS: Chol HDL Ratio 3.14 mg/dL (1.0-5.00); Cholesterol 88 mg/dL (0-200); HDL Cholesterol 28 mg/dL (60-100); LDL Cholesterol Calculated 32 mg/dL (50-129); LDL HDL Ratio 1.14 RATIO (0.00-3.22); Thyroid Stimulating Hormone 0.64 uIU/mL (0.27-4.20); Triglycerides 141 mg/dL (0-150)
[2022-12-22 19:51] LABS: Estmated Average Glucose 123; Hemoglobin A1C 5.9 % (4.0-6.0)
[2022-12-22] MEDS: hyDRALAzine 50 mg Tablet PO (20:08)
[2022-12-22] MEDS: aspirin 81 mg EC Tablet PO (20:08)
[2022-12-22] MEDS: enoxaparin 40 mg/0.4 mL Syringe SUBCUT (20:08)
[2022-12-22] MEDS: docusate sodium 100 mg Capsule PO (20:08)
[2022-12-22] MEDS: vancomycin 1,500 MG/300 ML PIGGYBACK 200 MG IV (20:08)
[2022-12-22] MEDS: topiramate 25 mg Tablet PO (20:08)
[2022-12-22] MEDS: sodium chloride 0.9% 1,000 ML 75 ML IV (20:13)
--- NOTE | 2022-12-22 20:29 | PC.PHAR ---
BBC6KGDS VANC - Pneumonia - 1500 mg q12h. should yield a trough ~16. trough before 4th dose 8 0700
[2022-12-22 20:30] LABS: Troponin 5 2HR 19.97 ng/L (0-15)
[2022-12-22 20:32] LABS: Troponin 5 2HR Delta -2.03 ABS# (0-10)
[2022-12-22 22:41] LABS: Adenovirus Not Detected (NOT DETECT); Chlamydia Pneumoniae Not Detected (NOT DETECT); Coronavirus 229E,HKU1,NL63,OC4 Not Detected (NOT DETECT); Human Metapneumovirus Not Detected (NOT DETECT); Human Rhinovirus/Enterovirus Not Detected (NOT DETECT); Influenza A Not Detected (NOT DETECT); Influenza A H1 Not Detected (NOT DETECT); Influenza A H1-2009 Not Detected (NOT DETECT); Influenza A H3 Not Detected (NOT DETECT); Influenza B Not Detected (NOT DETECT); Mycoplasma Pneumoniae Not Detected (NOT DETECT); Parainfluenza Virus Type 1 Not Detected (NOT DETECT); Parainfluenza Virus Type 2 Not Detected (NOT DETECT); Parainfluenza Virus Type 3 Not Detected (NOT DETECT); Parainfluenza Virus Type 4 Not Detected (NOT DETECT); Respiratory Syncytial Virus A Not Detected (NOT DETECT); Respiratory Syncytial Virus B Not Detected (NOT DETECT); SARS-COV-2 Not Detected (NOT DETECT)
[2022-12-22] MEDS: cefepime 1,000 MG in sodium chloride 0.9% (plus) 50 ML 100 MG IV (23:21)
[2022-12-22] MEDS: atorvastatin 40 mg Tablet 80 MG PO (23:24)
--- NOTE | 2022-12-22 23:42 | ECG_ITS ---
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 Measurements Intervals [place] Rate: 61 P: 28 SD: 160 QRS: 55 QRSD: 111 T: 43 QT: 458 QTc: 464 Interpretive Statements SINUS RHYTHM MODERATE INTRAVENTRICULAR CONDUCTION DELAY [110+ ms QRS DURATION] PROLONGED QT INTERVAL Compared to ECG 12/22/2022 19:37:25 Intraventricular conduction delay now present Prolonged QT interval now present Myocardial infarct finding no longer present Electronically Signed On 12-23-2022 6:58:59 CDT by Onofre Crawford M.D. [id number]
[2022-12-23] VITALS (11 sets, daily range): BP systolic 95–138; BP diastolic 59–77; PULSE 57–77; RESP 16–21; TEMP 36.5–37.2; O2SAT 91–97
[2022-12-23 01:18] LABS: Anion Gap 13.6 (5-19); Blood Urea Nitrogen 27 mg/dL (8-23); Calcium 8.4 mg/dL (8.5-10.5); Carbon Dioxide 22 mmol/L (22-29); Chloride 106 mmol/L (98-107); Glomerular Filtration Rate 68.3 mL/min (90-130); Glucose 95 mg/dL (65-115); Magnesium 1.9 mg/dL (1.7-2.3); Osmolality Calculated 291 mOsm/kg (285-295); Phosphorus 2.9 mg/dL (2.5-4.5); Potassium 3.6 mmol/L (3.5-5.1); Sodium 138 mmol/L (136-145)
[2022-12-23 01:27] LABS: Troponin 5 6HR 19.21 ng/L (0-15)
[2022-12-23 01:30] LABS: Troponin 5 6HR Delta -2.79 ng/L (0-12)
[2022-12-23] MEDS: HYDROcodone-acetaminophen 10-325 mg Tablet 1 TAB PO ×2 (04:32→15:12)
[2022-12-23] MEDS: buPROPion XL (24 HR) 150 mg Tablet PO (05:36)
[2022-12-23] MEDS: vancomycin 1,500 MG/300 ML PIGGYBACK 200 MG IV ×2 (07:30→20:55)
[2022-12-23] MEDS: aspirin 81 mg EC Tablet PO (08:46)
[2022-12-23] MEDS: pantoprazole DR 40 mg Tablet PO (08:47)
[2022-12-23] MEDS: docusate sodium 100 mg Capsule PO ×2 (08:47→17:06)
[2022-12-23] MEDS: sertraline 100 mg Tablet 200 MG PO (08:48)
[2022-12-23] MEDS: topiramate 25 mg Tablet PO ×2 (08:48→17:06)
[2022-12-23] MEDS: sodium chloride 0.9% 1,000 ML 75 ML IV ×2 (08:49→20:55)
[2022-12-23 09:32] LABS: Basophils % 0.6 %; Eosinophils # 0.2 10^3/uL (0.0-0.8); Eosinophils % 3.1 %; Hematocrit 35.7 % (42.0-52.0); Hemoglobin 11.2 g/dL (11.7-16.6); Lymphocytes # 2.1 10^3/uL (0.8-4.8); Lymphocytes % 30.9 %; Mean Corpuscular HGB Conc 31.4 g/dL (30.0-36.0); Monocytes # 0.6 10^3/uL (0.2-0.9); Monocytes % 9.3 %; Neutrophils # 3.79 10^3/uL (1.8-7.7); Neutrophils % 55.8 %; Nucleated Red Blood Cells % 0 %; Platelet Count 183 10^3/cmm (130-400); Red Cell Distribution Width 14.6 % (12.1-15.1); White Blood Count 6.8 10^3/uL (4.0-10.0)
[2022-12-23] MEDS: cefepime 1,000 MG in sodium chloride 0.9% (plus) 50 ML 100 MG IV ×2 (10:16→23:51)
[2022-12-23] MEDS: loratadine 10 mg Tablet PO (11:29)
[2022-12-23] MEDS: acetaminophen 325 mg Tablet 650 MG PO (11:29)
[2022-12-23] MEDS: hyDRALAzine 50 mg Tablet PO ×2 (14:34→20:54)
--- NOTE | 2022-12-23 14:55 | P.PN_ITS ---
Subjective Subjective: Patient was seen this morning, he complains of headache, no fevers, no chills, tells me that he is feeling unwell this morning, no nausea, no vomiting, no abdominal pain, no dysuria, hematuria, no blurry vision, no facial droop, no slurring of his words, no new focal weakness, I reviewed his medical records from his hospitalization at [facility], he was diagnosed with a stroke, he was eventually discharged to rehab, this morning he is alert and oriented x 3, following all commands, Vitals/I&O/Wt Last Vital Signs Temp 97.9 F 12/23/22 11:37 Pulse 72 12/23/22 11:37 Resp 16 12/23/22 11:37 BP 132/77 12/23/22 14:11 Pulse Ox 97 12/23/22 11:37 O2 Del Method Room Air 12/23/22 09:23 12/22/22 12/23/22 12/23/22 22:59 06:59 14:59 Intake Total 1350 / 1350 650 / 2000 1535 / 1535 Output Total 300 / 300 Balance 1350 / 1350 650 / 2000 1235 / 1235 Weight last 48 hrs Weight 104.326 kg Physical Exam Const: COMMON NORMALS: no acute distress and patient oriented x3 Eye: COMMON NORMALS: Equal, round and reactive pupils present and EOMs intact bilaterally PUPIL: Yes Equal, round and reactive pupils present Resp: COMMON NORMALS: normal respiratory effort, No retractions, No use of accessory muscles and clear to auscultation bilaterally AUSCULTATION: clear to auscultation bilaterally Cardio: COMMON NORMALS: regular rate, regular rhythm, S1 normal heart sound present and S2 normal heart sound present RATE: regular rate RHYTHM: regular rhythm HEART SOUNDS: S1 normal heart sound present and S2 normal heart sound present GI: COMMON NORMALS: Normal to inspection, nondistended, normoactive bowel sounds present and non-tender Extremity: COMMON NORMALS: no pedal edema Neuro: COMMON NORMALS: patient oriented x3, CN's II-XII intact bilaterally and moves all extremities OTHER: Residual left upper and left lower extremity weakness Psych: COMMON NORMALS: mental status grossly normal Data 12/23/22 00:50 12/23/22 00:50 Micro: Microbiology 12/22/22 13:43 Blood Culture - Preliminary Blood NEGATIVE TO DATE 12/22/22 13:43 Blood Culture - Preliminary Blood NEGATIVE TO DATE 12/22/22 18:29 MRSA Culture - Final Nose A&P Assessment and plan (1) Pneumonia: Qualifiers: Laterality: left Lung location: lower lobe of lung Pneumonia type: due to unspecified organism Qualified Code(s): J18.9 - Pneumonia, unspecified orga nism (2) Altered mental status: Qualifiers: Altered mental status type: disorientation Qualified Code(s): R41.0 - Disorientation, unspecified (3) Obesity: (4) Hypertension: (5) Hyperlipidemia: (6) History of CVA (cerebrovascular accident): (7) KERRY (acute kidney injury): Plan Altered mental status, solving -Possibly secondary to pneumonia -Neurochecks, NIH stroke scale, aspiration precautions Pneumonia -Vancomycin, cefepime -Sputum cultures, blood cultures, respiratory viral panel, MRSA nares PCR Acute kidney injury -IV fluids 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 difficile, complaints of diarrhea, stool studies History of type 2 diabetes mellitus, A1c 5.9 Hypertension continue home medications Attestations Medical Necessity Statement*: Patient requires hospitalization for altered mental status, pneumonia, KERRY, and High MDM includes number and complexity of problems actively addressed during encounter, amount and/or complexity of data reviewed/ordered and described risk of complication, morbidity or mortality of management as documented Diagnoses Pneumonia J18.9 Laterality: left Lung location: lower lobe of lung Pneumonia type: due to unspecified organism Altered mental status R41.0 Altered mental status type: disorientation Obesity E66.9 Hypertension I10 Hyperlipidemia E78.5 History of CVA (cerebrovascular accident) Z86.73 KERRY (acute kidney injury) N17.9
[2022-12-23] MEDS: atorvastatin 40 mg Tablet 80 MG PO (20:54)
[2022-12-23] MEDS: trazodone 50 mg Tablet PO (20:54)
[2022-12-23] MEDS: enoxaparin 40 mg/0.4 mL Syringe SUBCUT (20:55)
[2022-12-24] VITALS (13 sets, daily range): BP systolic 117–154; BP diastolic 67–89; PULSE 63–69; RESP 16–18; TEMP 36.6–37; O2SAT 94–96
[2022-12-24] MEDS: buPROPion XL (24 HR) 150 mg Tablet PO (05:48)
[2022-12-24 07:29] LABS: Basophils # 0.1 10^3/uL (0.0-0.1); Basophils % 0.9 %; Eosinophils # 0.3 10^3/uL (0.0-0.8); Eosinophils % 3.5 %; Hematocrit 37.8 % (42.0-52.0); Lymphocytes # 1.7 10^3/uL (0.8-4.8); Lymphocytes % 22.3 %; Mean Corpuscular HGB Conc 31.7 g/dL (30.0-36.0); Mean Corpuscular Volume 100.8 fl (80-94); Mean Platelet Volume 10.5 fL (7.4-10.4); Monocytes # 0.8 10^3/uL (0.2-0.9); Neutrophils # 4.86 10^3/uL (1.8-7.7); Neutrophils % 62.9 %; Nucleated Red Blood Cells % 0 %; Platelet Count 183 10^3/cmm (130-400); Red Blood Count 3.75 10^6/uL (4.1-5.3); Red Cell Distribution Width 14.1 % (12.1-15.1); White Blood Count 7.7 10^3/uL (4.0-10.0)
[2022-12-24 08:07] LABS: Vancomycin Trough 17.4 ug/mL (10-15)
[2022-12-24 08:53] LABS: Anion Gap 13.9 (5-19); Blood Urea Nitrogen 11 mg/dL (8-23); Calcium 8.6 mg/dL (8.5-10.5); Carbon Dioxide 21 mmol/L (22-29); Chloride 112 mmol/L (98-107); Glomerular Filtration Rate 98.6 mL/min (90-130); Glucose 91 mg/dL (65-115); Magnesium 1.5 mg/dL (1.7-2.3); Osmolality Calculated 295 mOsm/kg (285-295); Phosphorus 2.5 mg/dL (2.5-4.5); Potassium 3.9 mmol/L (3.5-5.1); Sodium 143 mmol/L (136-145)
[2022-12-24] MEDS: docusate sodium 100 mg Capsule PO ×2 (09:32→17:15)
[2022-12-24] MEDS: pantoprazole DR 40 mg Tablet PO (09:32)
[2022-12-24] MEDS: HYDROcodone-acetaminophen 10-325 mg Tablet 1 TAB PO ×3 (09:32→20:19)
[2022-12-24] MEDS: vancomycin 1,500 MG/300 ML PIGGYBACK 200 MG IV ×2 (09:33→20:18)
[2022-12-24] MEDS: losartan 50 mg Tablet PO (09:33)
[2022-12-24] MEDS: aspirin 81 mg EC Tablet PO (09:33)
[2022-12-24] MEDS: loratadine 10 mg Tablet PO (09:33)
[2022-12-24] MEDS: sertraline 100 mg Tablet 200 MG PO (09:33)
[2022-12-24] MEDS: amlodipine 5 mg Tablet 2.5 MG PO (09:33)
[2022-12-24] MEDS: topiramate 25 mg Tablet PO ×2 (09:33→17:15)
[2022-12-24] MEDS: hyDRALAzine 50 mg Tablet PO ×4 (09:33→20:19)
--- NOTE | 2022-12-24 10:52 | PC.CHAP ---
Pastoral Care Encounter/Spiritual Assessment Type of Contact [] Declined special order jeweler visit [] Patient/Family/Request visit [] Outpatient visit [] Follow-up visit [] Physician referral [] Code/Alert [x] Routine visit [] Staff referral [] Actively dying [] Patient sleeping [] Family support [] [] Out of room [] Palliative care [] [x] Receiving care in room [] Pre-surgical visit [] Trauma [] Long length of stay [] ICU visit [] Other: Relational/Emotional Strength [x] Patient feels connected with others/family/visitors/staff [] Distress [] Loneliness/isolation [] Abandonment Spirituality of Patient [x] Person of [place] [] Attends Mosque of their [place] [x] Believes in Prayer [] Reads Bible or Methodist materials [] There are Spiritual issues to be addressed Pillar Man Interventions [x] Prayer [x] Active listening [x] Non-anxious presence [x] Spiritual/emotional support [] Crisis/trauma care [x] Spiritual counseling [] Bereavement support [] Provided bereavement packet [] Provided Bible/devotional materials [] Provided toy/stuffed animal, coloring book to patient or family member [] Provided Communion [] Anointing/[place] [] Salvation [x] Completed spiritual assessment [] Other: Impact on Illness or Injury [] Angry [] Fearful [] Anxious [] Often cries [] Exhaustion [] Unable to work [] Unable to attend sabianism [] Unable to walk/stand [] Unable to read [] Unable to drive [] Unable to eat/drink [] Unable to sleep [] Unable to be with family [] Patient intubated [] Other: Summary has some problems waiting on doctor to see what needs to be done has a good attitude well go home Time spent with patient 10 mins
[2022-12-24] MEDS: cefepime 1,000 MG in sodium chloride 0.9% (plus) 50 ML 100 MG IV ×2 (11:17→23:52)
[2022-12-24] MEDS: sodium chloride 0.9% 1,000 ML 75 ML IV ×2 (11:19→23:51)
--- NOTE | 2022-12-24 13:12 | P.PN_ITS ---
Subjective Subjective: Patient was seen this morning continues to complain of weakness and fatigue, no fevers, no chills Vitals/I&O/Wt Last Vital Signs Temp 98.0 F 12/24/22 12:00 Pulse 68 12/24/22 12:00 Resp 16 12/24/22 12:00 BP 137/82 12/24/22 12:00 Pulse Ox 94 12/24/22 11:14 O2 Del Method Room Air 12/24/22 11:14 12/23/22 12/24/22 12/24/22 22:59 06:59 14:59 Intake Total 2507.5 / 4042.5 350 / 4392.5 2069 / 2069 Output Total 1100 / 1400 1600 / 3000 1600 / 1600 Balance 1407.5 / 2642.5 -1250 / 1392.5 470 / 470 Weight last 48 hrs Weight 104.326 kg Physical Exam Const: COMMON NORMALS: no acute distress and patient oriented x3 Resp: COMMON NORMALS: normal respiratory effort, No retractions, No use of accessory muscles and clear to auscultation bilaterally AUSCULTATION: clear to auscultation bilaterally Cardio: COMMON NORMALS: regular rate, regular rhythm, S1 normal heart sound present and S2 normal heart sound present RATE: regular rate RHYTHM: regular rhythm HEART SOUNDS: S1 normal heart sound present and S2 normal heart sound present GI: COMMON NORMALS: Normal to inspection, nondistended, normoactive bowel sounds present and non-tender Extremity: COMMON NORMALS: no pedal edema Neuro: COMMON NORMALS: patient oriented x3 Psych: COMMON NORMALS: mental status grossly normal Data 12/24/22 07:20 12/24/22 07:20 Micro: Microbiology 12/22/22 12:00 Gram Stain - Final Sputum - Expectorated Sputum 12/22/22 13:43 Blood Culture - Preliminary Blood NEGATIVE TO DATE 12/22/22 13:43 Blood Culture - Preliminary Blood NEGATIVE TO DATE 12/22/22 18:29 MRSA Culture - Final Nose A&P Assessment and plan (1) Pneumonia: Qualifiers: Laterality: left Lung location: lower lobe of lung Pneumonia type: due to unspecified organism Qualified Code(s): J18.9 - Pneumonia, unspecified organism (2) Altered mental status: Qualifiers: Altered mental status type: disorientation Qualified Code(s): R41.0 - Disorientation, unspecified (3) Obesity: (4) Hypertension: (5) Hyperlipidemia: (6) History of CVA (cerebrovascular accident): (7) KERRY (acute kidney injury): Plan Altered mental status, solving -Possibly secondary to pneumonia -Neurochecks, NIH stroke scale, aspiration precautions Pneumonia -Vancomycin, cefepime -Sputum cultures, blood cultures, respiratory viral panel Acute kidney injury -Resolving 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 difficile, complaints of diarrhea, stool studies History of type 2 diabetes mellitus, A1c 5.9 Hypertension continue home medications Attestations Medical Necessity Statement*: Patient requires hospitalization for altered mental status secondary to pneumonia requiring IV antibiotics Diagnoses Pneumonia J18.9 Laterality: left Lung location: lower lobe of lung Pneumonia type: due to unspecified organism Altered mental status R41.0 Altered mental status type: disorientation Obesity E66.9 Hypertension I10 Hyperlipidemia E78.5 History of CVA (cerebrovascular accident) Z86.73 KERRY (acute kidney injury) N17.9
[2022-12-24 14:12] LABS: Folate Level 9.1 ng/mL (4.5-32.2)
[2022-12-24 14:13] LABS: Vitamin B12 411 pg/mL (232-1245)
[2022-12-24] MEDS: diphenhydrAMINE 50 mg/mL SDV 1mL 25 MG IVP (16:50)
[2022-12-24] MEDS: ondansetron 2 mg/ML SDV 2 mL 4 MG IVP (16:51)
[2022-12-24] MEDS: ketorolac 30 mg/mL INJ IM (16:51)
[2022-12-24] MEDS: atorvastatin 40 mg Tablet 80 MG PO (20:18)
[2022-12-24] MEDS: enoxaparin 40 mg/0.4 mL Syringe SUBCUT (20:18)
[2022-12-24] MEDS: trazodone 50 mg Tablet PO (20:19)
[2022-12-25] VITALS (14 sets, daily range): BP systolic 148–154; BP diastolic 74–89; PULSE 67–78; RESP 16–18; TEMP 36.7–37.1; O2SAT 93–96
[2022-12-25] MEDS: acetaminophen 325 mg Tablet 650 MG PO (01:52)
[2022-12-25 05:28] LABS: Basophils # 0.1 10^3/uL (0.0-0.1); Basophils % 0.8 %; Eosinophils # 0.3 10^3/uL (0.0-0.8); Hematocrit 38.4 % (42.0-52.0); Hemoglobin 12.3 g/dL (11.7-16.6); Lymphocytes # 1.9 10^3/uL (0.8-4.8); Lymphocytes % 21.6 %; Mean Corpuscular Hemoglobin 31.2 pg (28.0-34.0); Mean Corpuscular Volume 97.5 fl (80-94); Mean Platelet Volume 10.4 fL (7.4-10.4); Monocytes # 0.6 10^3/uL (0.2-0.9); Neutrophils # 5.74 10^3/uL (1.8-7.7); Nucleated Red Blood Cells % 0 %; Platelet Count 203 10^3/cmm (130-400); Red Blood Count 3.94 10^6/uL (4.1-5.3); Red Cell Distribution Width 13.8 % (12.1-15.1); White Blood Count 8.6 10^3/uL (4.0-10.0)
[2022-12-25 05:53] LABS: Blood Urea Nitrogen 10 mg/dL (8-23); Calcium 8.8 mg/dL (8.5-10.5); Carbon Dioxide 23 mmol/L (22-29); Chloride 107 mmol/L (98-107); Glomerular Filtration Rate 98.6 mL/min (90-130); Glucose 118 mg/dL (65-115); Magnesium 1.4 mg/dL (1.7-2.3); Osmolality Calculated 292 mOsm/kg (285-295); Phosphorus 3.5 mg/dL (2.5-4.5); Sodium 141 mmol/L (136-145)
[2022-12-25 05:57] LABS: Anion Gap 15.2 (5-19); Potassium 4.2 mmol/L (3.5-5.1)
[2022-12-25] MEDS: buPROPion XL (24 HR) 150 mg Tablet PO (06:37)
[2022-12-25] MEDS: aspirin 81 mg EC Tablet PO (08:54)
[2022-12-25] MEDS: hyDRALAzine 50 mg Tablet PO ×4 (08:54→21:20)
[2022-12-25] MEDS: HYDROcodone-acetaminophen 10-325 mg Tablet 1 TAB PO ×2 (08:54→17:35)
[2022-12-25] MEDS: sertraline 100 mg Tablet 200 MG PO (08:54)
[2022-12-25] MEDS: loratadine 10 mg Tablet PO (08:54)
[2022-12-25] MEDS: pantoprazole DR 40 mg Tablet PO (08:55)
[2022-12-25] MEDS: vancomycin 1,500 MG/300 ML PIGGYBACK 200 MG IV (08:55)
[2022-12-25] MEDS: topiramate 25 mg Tablet PO ×2 (08:55→17:35)
[2022-12-25] MEDS: magnesium sulfate premix 2 GM/50 ML PIGGYBACK IV (08:55)
[2022-12-25] MEDS: docusate sodium 100 mg Capsule PO ×2 (08:55→17:35)
[2022-12-25] MEDS: amlodipine 5 mg Tablet 2.5 MG PO (08:55)
[2022-12-25] MEDS: losartan 50 mg Tablet PO (08:55)
[2022-12-25] MEDS: cefepime 1,000 MG in sodium chloride 0.9% (plus) 50 ML 100 MG IV (11:12)
--- NOTE | 2022-12-25 11:13 | PC.SOCIAL ---
IMM Update pg 2 of IMM updated and reviewed w/ patient. Copy provided and Copy dated, initialed and placed in chart.
[2022-12-25] MEDS: diphenhydrAMINE 50 mg/mL SDV 1mL 25 MG IVP (13:29)
[2022-12-25] MEDS: magnesium lactate 84 mg Tablet PO (13:42)
[2022-12-25] MEDS: chlorPROMazine 25 mg Tablet PO (13:42)
--- NOTE | 2022-12-25 17:17 | PM.PN ---
Vitals/I&O/Wt Last Vital Signs Temp 98.5 F 12/25/22 16:00 Pulse 70 12/25/22 16:00 Resp 18 12/25/22 16:00 BP 154/89 12/25/22 16:00 Pulse Ox 94 12/25/22 15:05 O2 Del Method Room Air 12/25/22 15:05 12/25/22 12/25/22 12/25/22 06:59 14:59 22:59 Intake Total 990 / 3360 2246.25 / 2246.25 Output Total 2425 / 5300 2150 / 2150 900 / 3050 Balance -1435 / -1940 96.25 / 96.25 -900 / -803.75 Physical Exam Const: COMMON NORMALS: no acute distress and patient oriented x3 Eye: COMMON NORMALS: Equal, round and reactive pupils present and EOMs intact bilaterally PUPIL: Yes Equal, round and reactive pupils present Resp: COMMON NORMALS: normal respiratory effort, No retractions, No use of accessory muscles and clear to auscultation bilaterally AUSCULTATION: clear to auscultation bilaterally Cardio: COMMON NORMALS: regular rate, regular rhythm, S1 normal heart sound present and S2 normal heart sound present RATE: regular rate RHYTHM: regular rhythm HEART SOUNDS: S1 normal heart sound present and S2 normal heart sound present GI: COMMON NORMALS: Normal to inspection, nondistended, normoactive bowel sounds present and non-tender Extremity: COMMON NORMALS: no pedal edema Neuro: COMMON NORMALS: patient oriented x3, CN's II-XII intact bilaterally, moves all extremities and no sensory deficits noted Psych: COMMON NORMALS: mental status grossly normal Data 12/25/22 05:07 12/25/22 05:07 Micro: Microbiology 12/25/22 08:10 Stool Lactoferrin - Final Stool Enteric Pathogens (PCR) - Final Parasite Antigen Panel - Final C.difficile Toxin B Gene (PCR) - Final Occult Blood (FIT) - Final 12/22/22 12:00 Gram Stain - Final Sputum - Expectorated Sputum Sputum Culture - Preliminary A&P Assessment and plan (1) Pneumonia: Qualifiers: Laterality: left Lung location: lower lobe of lung Pneumonia type: due to unspecified organism Qualified Code(s): J18.9 - Pneumonia, unspecified organism (2) Altered mental status: Qualifiers: Altered mental status type: disorientation Qualified Code(s): R41.0 - Disorientation, unspecified (3) Obesity: (4) Hypertension: (5) Hyperlipidemia: (6) History of CVA (cerebrovascular accident): (7) KERRY (acute kidney injury): (8) C. 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 difficile, complaints of diarrhea, stool studies History of type 2 diabetes mellitus, A1c 5.9 Hypertension continue home medications Attestations Medical Necessity Statement*: patient requires hospitalization for c diff colitis, requiring po vanc, pnemonia, requiring cefepime, migraine headache requring intervention Diagnoses Pneumonia J18.9 Laterality: left Lung location: lower lobe of lung Pneumonia type: due to unspecified organism Altered mental status R41.0 Altered mental status type: disorientation Obesity E66.9 Hypertension I10 Hyperlipidemia E78.5 History of CVA (cerebrovascular accident) Z86.73 KERRY (acute kidney injury) N17.9 C. difficile colitis A04.72 Migraines G43.909
[2022-12-25] MEDS: enoxaparin 40 mg/0.4 mL Syringe SUBCUT (21:19)
[2022-12-25] MEDS: trazodone 50 mg Tablet PO (21:20)
[2022-12-25] MEDS: ALPRAZolam 0.5 mg Tablet PO (21:20)
[2022-12-25] MEDS: atorvastatin 40 mg Tablet 80 MG PO (21:20)
[2022-12-26] MEDS: cefepime 1,000 MG in sodium chloride 0.9% (plus) 50 ML 100 MG IV ×2 (00:05→11:10)
[2022-12-26] MEDS: HYDROcodone-acetaminophen 10-325 mg Tablet 1 TAB PO ×3 (00:43→10:19)
[2022-12-26 03:54] VITALS: BP 151/94; PULSE 84; RESP 17; TEMP 36.8; O2SAT 95
[2022-12-26 05:56] LABS: Basophils # 0.1 10^3/uL (0.0-0.1); Basophils % 0.7 %; Eosinophils # 0.2 10^3/uL (0.0-0.8); Eosinophils % 1.7 %; Hematocrit 39.7 % (42.0-52.0); Hemoglobin 13.1 g/dL (11.7-16.6); Lymphocytes # 1.7 10^3/uL (0.8-4.8); Mean Corpuscular Hemoglobin 31.3 pg (28.0-34.0); Mean Corpuscular Volume 94.7 fl (80-94); Mean Platelet Volume 10.3 fL (7.4-10.4); Monocytes # 0.7 10^3/uL (0.2-0.9); Monocytes % 8.1 %; Neutrophils # 6.18 10^3/uL (1.8-7.7); Neutrophils % 69.7 %; Nucleated Red Blood Cells % 0 %; Platelet Count 239 10^3/cmm (130-400); Red Blood Count 4.19 10^6/uL (4.1-5.3); Red Cell Distribution Width 13.7 % (12.1-15.1); White Blood Count 8.9 10^3/uL (4.0-10.0)
[2022-12-26 06:00] VITALS: PULSE 77
[2022-12-26] MEDS: buPROPion XL (24 HR) 150 mg Tablet PO (06:02)
[2022-12-26 06:24] LABS: Anion Gap 16.5 (5-19); Blood Urea Nitrogen 8 mg/dL (8-23); Calcium 9.3 mg/dL (8.5-10.5); Carbon Dioxide 20 mmol/L (22-29); Chloride 106 mmol/L (98-107); Glucose 117 mg/dL (65-115); Osmolality Calculated 287 mOsm/kg (285-295); Potassium 3.5 mmol/L (3.5-5.1); Sodium 139 mmol/L (136-145)
[2022-12-26 08:00] VITALS: BP 163/97; PULSE 74; RESP 16; TEMP 36.9; O2SAT 91
[2022-12-26 08:38] VITALS: BP 163/97
[2022-12-26] MEDS: topiramate 25 mg Tablet PO (08:38)
[2022-12-26] MEDS: loratadine 10 mg Tablet PO (08:38)
[2022-12-26] MEDS: hyDRALAzine 50 mg Tablet PO ×2 (08:38→14:08)
[2022-12-26] MEDS: amlodipine 5 mg Tablet 2.5 MG PO (08:38)
[2022-12-26] MEDS: aspirin 81 mg EC Tablet PO (08:38)
[2022-12-26] MEDS: docusate sodium 100 mg Capsule PO (08:38)
[2022-12-26] MEDS: losartan 50 mg Tablet PO (08:38)
[2022-12-26] MEDS: pantoprazole DR 40 mg Tablet PO (08:38)
[2022-12-26] MEDS: magnesium lactate 84 mg Tablet PO (08:38)
[2022-12-26] MEDS: sertraline 100 mg Tablet 200 MG PO (08:38)
[2022-12-26 10:15] VITALS: BP 163/97
[2022-12-26] MEDS: cloNIDine 0.1 mg Tablet PO (10:15)
--- NOTE | 2022-12-26 11:34 | P.DS_ITS ---
Discharge Providers Date of Admission: 12/22/22 17:41 Date of Discharge: December 26, 2022 Attending Provider at Admission: Srikanth Franks MD Attending Provider at Discharge: Srikanth Franks MD Primary Care Provider: Mandeep Quezada Diagnoses at Discharge Discharge Diagnosis (1) Pneumonia: Status: Acute Qualifiers: Laterality: left Lung location: lower lobe of lung Pneumonia type: due to unspecified organism Qualified Code(s): J18.9 - Pneumonia, unspecified organism (2) Altered mental status: Status: Acute Qualifiers: Altered mental status type: disorientation Qualified Code(s): R41.0 - Disorientation, unspecified (3) Obesity: Status: Acute (4) Hypertension: Status: Acute (5) Hyperlipidemia: Status: Acute (6) History of CVA (cerebrovascular accident): Status: Acute (7) KERRY (acute kidney injury): Status: Acute (8) C. difficile colitis: Status: Acute (9) Migraines: Status: Acute Reason for Visit Reason for Visit: stroke like symptoms Hospital Course Hospital Course Milan Hua is a 62 year old male with a past medical history of colon cancer, history of multiple CVAs in the last 5 months, history of multiple hospitalizations at [facility] for the last 5 months, hypertension, hyperlipidemia, history of irregular heartbeat, history of chronic kidney disease, who presents to [facility] for altered mental status. Currently patient is alert to person, to place, not to time he tells me that it is October 03, 1957 and that Bronson is the president, he recognizes his son and [id number] at bedside, he tells me that Wednesday, because his son is in the hospital normally he is at work during the weekdays. When asked why he is here in the hospital he tells me that since getting out of 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 He tells me that for the last 5 to 6 months he has been hospitalized multiple times at [facility], he has had 5 strokes he tells me, he had acute renal failure almost requiring dialysis, he had C. difficile, he had an irregular heartbeat, he has had multiple tests, he tells me that he took all his medications, he tells me that the reason that he had only strokes was because of stress, has been having a lot of stress with the family issues at home, he does report falling, but does not remember when, denies a history of A-fib is not on any blood thinners, does report fevers and chills intermittently, but is not exactly when, he tells me he has a history of colon cancer, had a resection had a stoma with a stoma leak requiring multiple revision surgeries, denies any recent bloody or black stools, denies any dysuria, denies any hematuria, he tells me that after his last CVA at [facility] in [place] he has residual left-sided weakness left upper and left lower extremity weakness, he is able to ambulate on his own able to take care of himself. 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 Currently he is normotensive, currently afebrile, on room air, he has residual left upper left lower extremity weakness, strength 4-5, bilateral upper and lower extremities on the left, no facial droop, very mild slurring of his words, he denies any neck pain, no neck stiffness, no visual deficits, no nausea, no vomiting I asked family members if there is any significant changes in his his weakness or speech, however they decline any significant change except his confusion which is new, in the emergency room they performed a chest x-ray with findings of pneumonia, concerns for altered mental status related to pneumonia hospice team was called for admission Patient was admitted to [facility] for altered mental status secondary to pneumonia, managed with broad-spectrum antibiotic therapy remained afebrile, mentation improved back to baseline, discharged on 3 remaining days of cefdinir Patient's hospitalization was complicated by C. difficile colitis, discharged on p.o. vancomycin Patient had migraines during his hospitalization, follow-up with neurology as outpatient History of 5 CVAs, in the last 6 months, no new strokelike symptoms does have residual left-sided weakness from his stroke in the past for which she was hospitalized at [facility], discharged on aspirin, statin if any recurrent strokelike symptoms please go to emergency room or call 911, Follow-up with neurology Physical Exam Const: COMMON NORMALS: no acute distress and patient oriented x3 Resp: COMMON NORMALS: normal respiratory effort, No retractions, No use of accessory muscles and clear to auscultation bilaterally AUSCULTATION: clear to auscultation bilaterally Cardio: COMMON NORMALS: regular rate, regular rhythm, S1 normal heart sound present and S2 normal heart sound present RATE: regular rate RHYTHM: regular rhythm HEART SOUNDS: S1 normal heart sound present and S2 normal heart sound present GI: COMMON NORMALS: Normal to inspection, nondistended, normoactive bowel sounds present and non-tender Extremity: COMMON NORMALS: no pedal edema Neuro: COMMON NORMALS: patient oriented x3 Psych: COMMON NORMALS: mental status grossly normal Discharge Data Studies Completed and Pending Completed Studies During Hospitalization Category Date Time Status CT head wo con* [id number] Stat Cat Scan 12/22/22 14:56 Completed XR chest 1V portable [id number] Stat Exams 12/22/22 13:33 Completed Pending at discharge Category Date Time Status Basic Metabolic Panel AM LABS Lab 12/27/22 04:00 Ordered Basic Metabolic Panel AM LABS Lab 12/28/22 04:00 Ordered Blood Culture Stat Lab 12/22/22 13:43 Results Radiology Impressions Chest X-Ray 12/22/22 13:33 IMPRESSION: Ill-defined opacity in the left lower lung is suspicious for pneumonia. ADDENDUM: 12/22/22 1518 THIS REPORT CONTAINS FINDINGS THAT MAY BE CRITICAL TO PATIENT CARE. The findings were verbally communicated via telephone conference with Juwan Francis at 3:17 PM CDT on 12/22/2022. The findings were acknowledged and understood. Head CT 12/22/22 14:56 IMPRESSION: No acute intracranial abnormality. Laboratory Results WBC 8.9 10^3/uL (4.0-10.0) 12/26/22 05:39 RBC 4.19 10^6/uL (4.1-5.3) 12/26/22 05:39 Hgb 13.1 g/dL (11.7-16.6) 12/26/22 05:39 Hct 39.7 % (42.0-52.0) L 12/26/22 05:39 MCV 94.7 fl (80-94) H 12/26/22 05:39 MCH 31.3 pg (28.0-34.0) 12/26/22 05:39 MCHC 33.0 g/dL (30.0-36.0) 12/26/22 05:39 RDW 13.7 % (12.1-15.1) 12/26/22 05:39 Plt Count 239 10^3/cmm (130-400) 12/26/22 05:39 MPV 10.3 fL (7.4-10.4) 12/26/22 05:39 Neut % (Auto) 69.7 % 12/26/22 05:39 Lymph % (Auto) 19.0 % 12/26/22 05:39 Hardy % (Auto) 8.1 % 12/26/22 05:39 Eos % (Auto) 1.7 % 12/26/22 05:39 Baso % (Auto) 0.7 % 12/26/22 05:39 Neut # (Auto) 6.18 10^3/uL (1.8-7.7) 12/26/22 05:39 Lymph # (Auto) 1.7 10^3/uL (0.8-4.8) 12/26/22 05:39 Hardy # (Auto) 0.7 10^3/uL (0.2-0.9) 12/26/22 05:39 Eos # (Auto) 0.2 10^3/uL (0.0-0.8) 12/26/22 05:39 Baso # (Auto) 0.1 10^3/uL (0.0-0.1) 12/26/22 05:39 Nucleated RBC % (auto) 0 % 12/26/22 05:39 Nucleated RBCs # 0.0 /100WBC 12/26/22 05:39 PT 13.90 SECONDS (12.1-14.9) 12/22/22 13:39 INR 1.04 (0.8-1.2) 12/22/22 13:39 Specimen Type Arterial 12/22/22 18:12 Sample Site Brachial, right 12/22/22 18:12 ABG pH 7.30 (7.35-7.45) L 12/22/22 18:12 ABG pCO2 43.9 mmHg (35-45) 12/22/22 18:12 ABG pO2 57.5 mmHg (80.0-100.0) L 12/22/22 18:12 ABG HCO3 21.8 mmol/L (22-26) L 12/22/22 18:12 ABG Base Excess -4.5 mmol/L (-2.0-2.0) L 12/22/22 18:12 Fam Test N/a 12/22/22 18:12 Hematocrit 37.5 % (42-52) L 12/22/22 18:12 O2 Delivery Device Room air 12/22/22 18:12 FiO2 21.0 % 12/22/22 18:12 Investment Representative ID Amh 12/22/22 18:12 Sodium 139 mmol/L (136-145) 12/26/22 05:39 Potassium 3.5 mmol/L (3.5-5.1) 12/26/22 05:39 Chloride 106 mmol/L (98-107) 12/26/22 05:39 Carbon Dioxide 20 mmol/L (22-29) L 12/26/22 05:39 Anion Gap 16.5 (5-19) 12/26/22 05:39 BUN 8 mg/dL (8-23) 12/26/22 05:39 Creatinine 0.7 mg/dL (0.7-1.2) 12/26/22 05:39 GFR Calculation 115.0 mL/min (90-130) 12/26/22 05:39 Glucose 117 mg/dL (65-115) H 12/26/22 05:39 POC Glucose 80 mg/dL (70-110) 12/22/22 13:52 Estimat Average Glucose 123 12/22/22 13:39 Hemoglobin A1c 5.9 % (4.0-6.0) 12/22/22 13:39 Calculated Osmolality 287 mOsm/kg (285-295) 12/26/22 05:39 Lactic Acid 1.0 mmol/L (0.5-2.2) 12/22/22 13:39 Calcium 9.3 mg/dL (8.5-10.5) 12/26/22 05:39 Phosphorus 3.5 mg/dL (2.5-4.5) 12/25/22 05:07 Magnesium 1.4 mg/dL (1.7-2.3) L 12/25/22 05:07 Total Bilirubin 0.3 mg/dL (0.15-1.2) 12/22/22 13:39 AST 56 U/L (0-40) H 12/22/22 13:39 ALT 16 U/L (0-41) 12/22/22 13:39 Alkaline Phosphatase 52 U/L (40-130) 12/22/22 13:39 Troponin T Baseline 22 ng/L (0-15) H 12/22/22 13:39 Troponin T 120 Minute 19.97 ng/L (0-15) H 12/22/22 19:50 Delta Troponin T -2.03 ABS# (0-10) L 12/22/22 19:50 Troponin T Hi Sens 6Hr 19.21 ng/L (0-15) H 12/23/22 00:50 Troponin T Hi Sens 6Hr Delta -2.79 ng/L (0-12) L 12/23/22 00:50 C-Reactive Protein 41.5 mg/L (0.0-4.9) H 12/22/22 13:39 NT-Pro-B Natriuret Pep 270 pg/mL (0-125) H 12/22/22 13:39 Total Protein 6.5 g/dL (6.6-8.7) L 12/22/22 13:39 Albumin 4.1 g/dL (3.5-5.2) 12/22/22 13:39 Globulin 2.4 g/dL (1.3-4.6) 12/22/22 13:39 Triglycerides 141 mg/dL (0-150) 12/22/22 13:39 Cholesterol 88 mg/dL (0-200) 12/22/22 13:39 LDL Cholesterol, Calc 32 mg/dL (50-129) L 12/22/22 13:39 HDL Cholesterol 28 mg/dL (60-100) L 12/22/22 13:39 LDL/HDL Ratio 1.14 RATIO (0.00-3.22) 12/22/22 13:39 Cholesterol/HDL Ratio 3.14 mg/dL (1.0-5.00) 12/22/22 13:39 Vitamin B12 411 pg/mL (232-1245) 12/24/22 07:20 Folate 9.1 ng/mL (4.5-32.2) 12/24/22 07:20 Procalcitonin 0.30 ng/mL (0-0.5) 12/22/22 13:39 TSH 0.64 uIU/mL (0.27-4.20) 12/22/22 13:39 Urine Color Yellow (Yellow) 12/22/22 15:28 Urine Appearance Clear (CLEAR) 12/22/22 15:28 Urine pH 5 (5-7) 12/22/22 15:28 Ur Specific [place] 1.010 (1.005-1.030) 12/22/22 15:28 Urine Protein Neg (Negative) 12/22/22 15:28 Urine Glucose (UA) Norm (Normal) 12/22/22 15:28 Urine Ketones Negative (Negative) 12/22/22 15:28 Urine Blood Neg (Negative) 12/22/22 15:28 Urine Nitrate Negative (Negative) 12/22/22 15:28 Urine Bilirubin Neg (Negative) 12/22/22 15:28 Urine Urobilinogen Norm mg/dL (Negative) 12/22/22 15:28 Ur Leukocyte Esterase Negative (Negative) 12/22/22 15:28 Nasal Influ A H1 2008 PCR Not detected (NOT DETECT) 12/22/22 20:39 Vancomycin Trough 17.4 ug/mL (10-15) H 12/24/22 07:20 Urine Opiates Screen Positive ng/mL (Negative) H 12/22/22 15:28 Ur Barbiturates Screen Negative ng/mL (Negative) 12/22/22 15:28 Ur Phencyclidine Scrn Negative ng/mL (Negative) 12/22/22 15:28 Ur Amphetamines Screen Negative ng/mL (Negative) 12/22/22 15:28 U Benzodiazepines Scrn Positive ng/mL (Negative) H 12/22/22 15:28 Urine Cocaine Screen Negative ng/mL (Negative) 12/22/22 15:28 U Marijuana (THC) Screen Negative ng/mL (Negative) 12/22/22 15:28 Adenovirus (PCR) Not detected (NOT DETECT) 12/22/22 20:39 C. pneumoniae DNA (PCR) Not detected (NOT DETECT) 12/22/22 20:39 Coronavirus 229E (PCR) Not detected (NOT DETECT) 12/22/22 20:39 Human Metapneumovir PCR Not detected (NOT DETECT) 12/22/22 20:39 Influenza A (H1) PCR Not detected (NOT DETECT) 12/22/22 20:39 Influenza A (H3) PCR Not detected (NOT DETECT) 12/22/22 20:39 Influenza Type A (PCR) Not detected (NOT DETECT) 12/22/22 20:39 Influenza Type B (PCR) Not detected (NOT DETECT) 12/22/22 20:39 M. pneumoniae (PCR) Not detected (NOT DETECT) 12/22/22 20:39 Parainfluenza 1 (PCR) Not detected (NOT DETECT) 12/22/22 20:39 Parainfluenza 2 (PCR) Not detected (NOT DETECT) 12/22/22 20:39 Parainfluenza 3 (PCR) Not detected (NOT DETECT) 12/22/22 20:39 Parainfluenza 4 (PCR) Not detected (NOT DETECT) 12/22/22 20:39 RSV Type A (PCR) Not detected (NOT DETECT) 12/22/22 20:39 RSV Type B (PCR) Not detected (NOT DETECT) 12/22/22 20:39 Entero/Rhino (PCR) Not detected (NOT DETECT) 12/22/22 20:39 SARS-CoV-2 (PCR) Not detected (NOT DETECT) 12/22/22 20:39 Vitals Last Vital Signs Temp 98.4 F 12/26/22 08:00 Pulse 74 12/26/22 08:00 Resp 16 12/26/22 08:00 BP 163/97 12/26/22 10:15 Pulse Ox 91 12/26/22 08:00 O2 Del Method Room Air 12/26/22 08:00 Discharge Plan Discharge Patient Disposition: Home Health Service Condition: Stable Prescriptions: New magnesium L-lactate [Magtab] 84 mg Tablet Extended Release 84 mg PO DAILY 30 Days Qty: 30 0RF clonidine HCl 0.1 mg Tablet 0.1 mg PO BID 30 Days Qty: 60 0RF cefdinir 300 mg capsule 300 mg PO BID 3 Days Qty: 6 0RF aspirin 81 mg Tablet,Delayed Release (Dr/Ec) 81 mg PO DAILY 30 Days Qty: 30 0RF vancomycin 125 mg capsule 125 mg PO Q6H 10 Days Qty: 40 0RF Continued cholecalciferol (vitamin D3) 1,250 mcg (50,000 unit) capsule 50,000 unit PO .WEEKLY Rx Instructions: weekly on WEDNESDAY pantoprazole [Protonix] 40 mg Tablet,Delayed Release (Dr/Ec) 40 mg PO DAILY ibuprofen 200 mg Tablet 600 mg PO PRN PRN (Reason: Pain) albuterol sulfate 90 mcg/actuation HFA aerosol inhaler 2 puff INHALATION Q4H PRN (Reason: Shortness Of Breath) melatonin 10 mg Tablet 30 mg PO BEDTIME alprazolam 1 mg tablet 0.5 - 1 mg PO TID losartan 50 mg tablet 50 mg PO DAILY atorvastatin 80 mg tablet 80 mg PO BEDTIME loperamide 2 mg capsule 4 mg PO QID PRN (Reason: Diarrhea) trazodone 50 mg tablet 50 - 150 mg PO BEDTIME sertraline 100 mg tablet 200 mg PO DAILY topiramate 25 mg tablet 25 mg PO BID amlodipine 2.5 mg tablet 2.5 mg PO DAILY hydrocodone-acetaminophen 10-325 mg tablet 1 tab PO Q4H PRN (Reason: Pain) potassium chloride 20 mEq tablet,ER particles/crystals 20 meq PO BEDTIME hydralazine 50 mg tablet 50 mg PO QID bupropion HCl 150 mg tablet extended release 24 hr 150 mg PO .QAM hydrochlorothiazide 12.5 mg tablet 12.5 mg PO DAILY Discontinued lisinopril 20 mg tablet 20 mg PO BID Discharge Orders: Discharge Order (Routine); Ordered 12/26/22 Ordered By: Srikanth Franks Referrals: [facility] [place] [facility] ([facility]) [Outside] Mandeep Quezada [Primary Care Provider] - Ken Galeano MD [Physician] - 2 weeks Discharge Diet: Cardiac Discharge Activity: Resume usual activity Patient Instructions: Benzodiazepine Use Disorder (ED) Activity Restrictions/Additional Instructions: -If you have any rocklike symptoms please call 911 -Please follow-up with neurology -Take p.o. vancomycin for C. difficile Discharge Attestations Time Spent in Discharge Care*: greater than 30 min Quality Metrics Clinical Quality Measures [ No reported AMI, CVA or VTE this stay] Coding Level of Care Code 94527 Total time (in minutes) for Discharge: 45 Diagnoses Pneumonia J18.9 Laterality: left Lung location: lower lobe of lung Pneumonia type: due to unspecified organism Altered mental status R41.0 Altered mental status type: disorientation Obesity E66.9 Hypertension I10 Hyperlipidemia E78.5 History of CVA (cerebrovascular accident) Z86.73 KERRY (acute kidney injury) N17.9 C. difficile colitis A04.72 Migraines G43.909
[2022-12-26 12:00] VITALS: BP 160/90; PULSE 82; RESP 17; O2SAT 95
== END 2022-12-26 16:13 | disposition home health service (06) | DRG 194 ==
LOC: ER 17:12 → MEDSURG 17:42
PROVIDERS: Admitting Provider Family Medicine; Emergency Provider Emergency Medicine; PCP Family Medicine; Visit Provider Family Medicine
DX: J18.9 Pneumonia, unspecified organism (principal); A04.72 Enterocolitis due to Clostridium difficile, not specified as recurrent; I69.954 Hemiplegia and hemiparesis following unspecified cerebrovascular disease affecting left non-dominant side; N17.9 Acute kidney failure, unspecified; R41.82 Altered mental status, unspecified; Z85.038 Personal history of other malignant neoplasm of large intestine; I69.928 Other speech and language deficits following unspecified cerebrovascular disease; N18.9 Chronic kidney disease, unspecified; I12.9 Hypertensive chronic kidney disease with stage 1 through stage 4 chronic kidney disease, or unspecified chronic kidney disease; E78.5 Hyperlipidemia, unspecified; Z93.3 Colostomy status; G43.909 Migraine, unspecified, not intractable, without status migrainosus; Z79.51 Long term (current) use of inhaled steroids; Z79.891 Long term (current) use of opiate analgesic; E11.9 Type 2 diabetes mellitus without complications; F17.200 Nicotine dependence, unspecified, uncomplicated
CPT/HCPCS: 36415; 36416; 36600; 70450; 71045; 80048; 80053; 80061; 80202; 80306; 81003; 82274; 82607; 82746; 82803; 82962; 83036; 83605; 83630; 83735; 83880; 84100; 84145; 84443; 84484; 85025; 85610; 86140; 87040; 87070; 87205; 87486; 87493; 87506; 87581; 87633; 87641; 93005; 94664; 96372; 96374; 97110; 97116; 97161; 97165; 97530; 97535; 99285; J0692; J1200; J1650; J1885; J2405; J2543; J3370; J3475; J7030; Q0161

== ENCOUNTER 2023-07-02 22:42 | Observation (INO) | payer MEDICARE, SELFPAY ==
[2023-07-02 22:46] VITALS: BP 158/94; PULSE 77; RESP 20; TEMP 36.9; O2SAT 99; BMI 25.7
--- NOTE | 2023-07-02 22:55 | CTR_ITS ---
PROCEDURE INFORMATION: Exam: CT Head Without Contrast Exam date and time: 07/02/2023 11:12 PM Age: 62 years old Clinical indication: Altered mental status/memory loss; Patient HX: Hallucinations; Additional info: AMS TECHNIQUE: Imaging protocol: Computed tomography of the head without contrast. Radiation optimization: All CT scans at this facility use at least one of these dose optimization techniques: automated exposure control; mA and/or kV adjustment per patient size (includes targeted exams where dose is matched to clinical indication); or iterative reconstruction. COMPARISON: CT head wo con* [id number] 12/22/2022 3:04 PM RADIATION DOSE METRICS: Total DLP (mGy-cm): 1185 FINDINGS: Brain: No midline shift. Cisterns are noneffaced. Mild, ill-defined, low-attenuation areas at bilateral periventricular white matter suggests microvascular ischemic changes. No intracranial hemorrhage. No definite evidence of acute infarcts. However, diffusion MRI is more sensitive. No extra-axial fluid collections. Cerebral ventricles: Ventricles along with cerebral sulci are moderately enlarged, reflecting cerebral volume loss. Paranasal sinuses: Visualized sinuses are clear. Mastoid air cells: Visualized mastoid air cells are well aerated. Orbital cavities: Visualized orbits are normal. Bones/joints: No acute fractures. Soft tissues: Unremarkable. Vasculature: Bilateral cavernous and supraclinoid carotid and left vertebral arteries are moderately calcified. Right petrous carotid and right vertebral arteries are mild-moderately calcified. Left petrous carotid artery is mildly calcified. CT/CT head wo con* [id number] IMPRESSION: 1. Moderate cerebral volume loss. Mild hypodensities at bilateral periventricular white matter, suggesting microvascular ischemic changes. 2. Atherosclerosis.
--- NOTE | 2023-07-02 22:55 | XRR_ITS ---
PROCEDURE INFORMATION: Exam: XR Chest Exam date and time: 07/02/2023 11:03 PM Age: 62 years old Clinical indication: Colorectal CA. Cough TECHNIQUE: Imaging protocol: Radiologic exam of the chest. Views: 1 view. Other technique: BEDSIDE AP CHEST COMPARISON: 1. CR XR chest 1V portable [id number] 12/22/2022 1:[address] 08/26/2021. FINDINGS: Lungs: Lung volumes are mildly low. A few, < 8 mm, radiopaque nodules at right mid lung and lung base are unchanged, corresponding to calcified granulomas on CT. Pleural spaces: No definite pleural effusions or pneumothorax. Heart/Mediastinum: Normal. Vasculature: Aorta is mildly tortuous. Bones/joints: Degenerative disc and facet disease of visualized cervical spine and degenerative disc disease of mid-lower thoracic spine are present. There is mild osteoarthritis of bilateral acromioclavicular joints. XR/XR chest 1V portable [id number] IMPRESSION: Unchanged, a few, < 8 mm, radiopaque nodules at right mid lung and lung base, corresponding to calcified granulomas on CT.
--- NOTE | 2023-07-02 22:58 | ECG_ITS ---
[facility] Test Date: 2023-07-02 Pat Name: Milan Hua Department: Room: Gender: Male Switch Tender: : 1960 Requested By: Jaun Nielsen Order Number: [id number] Elliott MD: Rony Flores M.D. Measurements Intervals [place] Rate: 67 P: 21 CT: 136 QRS: 34 QRSD: 98 T: -23 QT: 442 QTc: 468 Interpretive Statements SINUS RHYTHM NONSPECIFIC T-WAVE ABNORMALITY Compared to ECG 12/22/2022 23:42:51 T-wave abnormality now present Intraventricular conduction delay no longer present Prolonged QT interval no longer present Electronically Signed On 07-03-2023 7:49:26 [employer] SAL[employer] by Rony Flores M.D. [email or web address]
[2023-07-02 23:06] LABS: Basophils # 0.1 10^3/uL (0.0-0.1); Basophils % 0.7 %; Eosinophils # 0.1 10^3/uL (0.0-0.8); Eosinophils % 0.8 %; Hematocrit 43.3 % (37-53); Lymphocytes # 2.1 10^3/uL (0.8-4.8); Lymphocytes % 20.8 %; Mean Corpuscular HGB Conc 33.5 g/dL (30-55); Mean Corpuscular Hemoglobin 29.4 pg (27-33); Mean Corpuscular Volume 87.7 fl (82-101); Monocytes # 1.1 10^3/uL (0.2-0.9); Monocytes % 11.1 %; Neutrophils # 6.75 10^3/uL (1.8-7.7); Nucleated Red Blood Cells % 0 %; Platelet Count 226 10^3/cmm (157-399); Red Blood Count 4.94 10^6/uL (3.85-5.65); Red Cell Distribution Width 15.6 % (12.1-15.1); White Blood Count 10.22 10^3/uL (3.29-11.43)
[2023-07-02 23:14] LABS: INR 1.12 (0.8-1.2)
[2023-07-02 23:17] VITALS: BP 137/80; PULSE 67; RESP 18; O2SAT 94
[2023-07-02 23:20] LABS: Alanine Aminotransferase 10 U/L (0-41); Albumin Level 4.2 g/dL (3.5-5.2); Alkaline Phosphatase 85 U/L (40-130); Blood Urea Nitrogen 15 mg/dL (8-23); Calcium 9.1 mg/dL (8.5-10.5); Carbon Dioxide 21 mmol/L (22-29); Chloride 94 mmol/L (98-107); Creatinine Clr Calc Pharmacy 95.1191; Globulin 3.5 g/dL (1.3-4.6); Glomerular Filtration Rate 76.2 mL/min (90-130); Glucose 77 mg/dL (65-115); Lactic Sepsis W/Reflex 1.7 mmol/L (0.5-2.2); Osmolality Calculated 274 mOsm/kg (285-295); Sodium 132 mmol/L (136-145); Total Bilirubin 0.7 mg/dL (0.15-1.2); Total Protein 7.7 g/dL (6.6-8.7)
[2023-07-02 23:25] LABS: Glucose Point of Care 96 mg/dL (70-110)
[2023-07-02 23:27] LABS: Procalcitonin 0.05 ng/mL (0-0.5)
[2023-07-02 23:41] LABS: Anion Gap 20.4 (5-19); Aspartate Amino Transferase 20 U/L (0-40); Potassium 3.4 mmol/L (3.5-5.1)
[2023-07-03] VITALS (12 sets, daily range): BP systolic 120–174; BP diastolic 77–104; PULSE 20–100; RESP 15–20; TEMP 36.6–36.9; O2SAT 96–99
[2023-07-03 02:28] LABS: Add Urine Microscopic? NO; Charge for UA Resulting for Rev
[2023-07-03 02:31] LABS: Bilirubin Urine Neg (Negative); Blood Urine Neg (Negative); Glucose Urine UA Norm (Normal); Ketones Urine Negative (Negative); Leukocyte Esterase Urine Negative (Negative); Nitrate Urine Negative (Negative); Protein Urine Neg (Negative); Urine Appearance Clear (CLEAR); Urine Color Yellow (Yellow); Urobilinogen Urine Norm (Negative); pH Urine 6 (5-7)
[2023-07-03 02:39] LABS: Amphetamines Screen Urine Negative (Negative); Barbiturates Screen Urine Negative (Negative); Benzodiazepines Screen Urine Negative (Negative); Cocaine Screen Urine Negative (Negative); Opiate Screen Urine Negative (Negative); PCP Screen Urine Negative (Negative); THC Screen Urine Negative (Negative)
--- NOTE | 2023-07-03 06:41 | ED_ITS ---
HPI - Altered Mental Status 2 General: Chief Complaint: Altered Mental Status Stated Complaint: AMS Time Seen by Provider: 07/02/23 22:55 History of Present Illness: 62-year-old male presents to the emergen cy department via EMS personnel. Patient states that he called EMS because he accidentally hit himself in the eye with a plastic toilet bowl brush. During the initial evaluation patient was providing appropriate medical information that had a normal flow and then suddenly in the middle of the conversation had several fleeting thoughts that did not have any relevance on the conversation and then the patient return to the conversation and was back to his normal self. The patient states that he has had 5 strokes in the past. He states he lives by his self and again has episodes of trailing off with waxing and waning ability for his communication. He denies additional discomfort or pain at this time. Patient has no last known well time cannot recall when he intermittently had difficulty with his thinking. Review of Systems 2 General: Reports: 10 or more systems reviewed and unremarkable except in HPI and below Neuro: Reports: confusion PFS ED 2 PFSH: Medical History (Updated 12/27/22 @ 00:01 by LA Nava) History of CVA (cerebrovascular accident) Erectile dysfunction Umbilical hernia Diastasis recti Diarrhea Diabetes Hypertension Hyperlipidemia Migraines Positive FIT (fecal immunochemical test) History of meningitis Hemorrhoids Surgical History History of arthroscopic knee surgery Family History Father Hypertension Diabetes Denies family history of Anesthesia complication Bleeding disorder Social History Smoking and tobacco/nicotine status: current every day tobacco/nicotine user Alcohol intake: never Substance/Drug Use: never Marital status: / Current occupational status: disabled Physical Exam 2 Narrative: Constitutional: the patient appears well nourished and with normal development. Vital signs reviewed as documented. HENMT: Normocephalic, atraumatic. External ears normal appearance without drainage. Nose without drainage, normal appearance. Mucus membranes moist. Neck is supple, No jugular venous distension, trachea is midline, no appreciable carotid bruits. No lymphadenopathy. No meningeal signs. Flexion, extension and lateral rotation is without pain. Eyes: Pupils are equal, round, reactive to light and accommodation. No scleral icterus. Extra-ocular movement are intact. Thorax is symmetrical and with equal rise and fall with respirations. Resp: Lungs are clear to auscultation. No wheezes, rales, crackles or ronchi at present. Cardio: Regular rate and rhythm. Positive S1, S2. No appreciable murmurs, rubs or gallops. GI: Abdominal exam reveals normal bowel sounds to all quadrants. No organomegaly. No obvious palpable masses noted. No hepatomegally appreciated. Soft, non-tender to palpation. Extremity: Extremities are non-edematous and both femoral and pedal pulses are 2+ and equal bilaterally. Moves all extremities well, sensation in all extremities. Neuro: Alert and oriented x3, person, place, and situation. With intermittent periods of confusion. Cranial nerves II through XII are grossly intact, there is no focal neurological deficits that I can appreciate at present. Motor strength in the upper and lower extremities are equal and bilateral 5/5. Psych: Cooperative, calm, normal thought process, appropriate judgment. Skin: No lesions, rashes. No gross abnormalities noted. Back: Symmetrical, no obvious deformity, No CVA tenderness Course 2 Vital Signs: Vital signs: Vital Signs Temperature 98.4 F 07/02/23 22:46 Pulse Rate 75 07/03/23 06:26 Respiratory Rate 18 07/03/23 06:26 Blood Pressure 126/87 07/03/23 06:26 Pulse Oximetry 96 07/03/23 06:26 Oxygen Delivery Me thod Room Air 07/03/23 06:26 MDM - Altered Mental Status Medical Decision Making Physical exam completed document I will obtain laboratory evaluation and CT scan of the head without. I did contact the hospital physician to discuss the patient's case and we will admit the patient with observation status and plan to obtain an MRI/MRA for additional evaluation given the patient's history of CVAs. Medical Records I reviewed the patient's medical records. Lab Data I reviewed the patient's lab results. 07/02/23 22:55 07/02/23 22:55 Radiology Impressions Chest X-Ray 07/02/23 22:55 IMPRESSION: Unchanged, a few, < 8 mm, radiopaque nodules at right mid lung and lung base, corresponding to calcified granulomas on CT. Head CT 07/02/23 22:55 IMPRESSION: 1. Moderate cerebral volume loss. Mild hypodensities at bilateral periventricular white matter, suggesting microvascular ischemic changes. 2. Atherosclerosis. Laboratory Results WBC 10.22 10^3/uL (3.29-11.43) 07/02/23 22:55 RBC 4.94 10^6/uL (3.85-5.65) 07/02/23 22:55 Hgb 14.50 g/dL (11.27-16.99) 07/02/23 22:55 Hct 43.3 % (37-53) 07/02/23 22:55 MCV 87.7 fl (82-101) 07/02/23 22:55 MCH 29.4 pg (27-33) 07/02/23 22:55 MCHC 33.5 g/dL (30-55) 07/02/23 22:55 RDW 15.6 % (12.1-15.1) H 07/02/23 22:55 Plt Count 226 10^3/cmm (157-399) 07/02/23 22:55 MPV 10.0 fL (7.4-10.4) 07/02/23 22:55 Neut % (Auto) 66.0 % 07/02/23 22:55 Lymph % (Auto) 20.8 % 07/02/23 22:55 [place] % (Auto) 11.1 % 07/02/23 22:55 Eos % (Auto) 0.8 % 07/02/23 22:55 Baso % (Auto) 0.7 % 07/02/23: Neut # (Auto) 6.75 10^3/uL (1.8-7.7) 07/02/23 22:55 Lymph # (Auto) 2.1 10^3/uL (0.8-4.8) 07/02/23 22:55 [place] # (Auto) 1.1 10^3/uL (0.2-0.9) H 07/02/23 22:55 Eos # (Auto) 0.1 10^3/uL (0.0-0.8) 07/02/23 22:55 Baso # (Auto) 0.1 10^3/uL (0.0-0.1) 07/02/23 22:55 Nucleated RBC % (auto) 0 % 02/16/24 22:55 Nucleated RBCs # 0.0 /100WBC 07/02/23 22:55 PT 14.80 SECONDS (12.1-14.9) 07/02/23 22:55 INR 1.12 (0.8-1.2) 07/02/23 22:55 APTT 21.0 SECONDS (23.9-36.7) L 07/02/23 22:55 Sodium 132 mmol/L (136-145) L 07/02/23 22:55 Potassium 3.4 mmol/L (3.5-5.1) L 07/02/23 22:55 Chloride 94 mmol/L (98-107) L 07/02/23 22:55 Carbon Dioxide 21 mmol/L (22-29) L 07/02/23 22:55 Anion Gap 20.4 (5-19) H 07/02/23 22:55 BUN 15 mg/dL (8-23) 07/02/23 22:55 Creatinine 1.0 mg/dL (0.7-1.2) 07/02/23 22:55 GFR Calculation 76.2 mL/min (90-130) L 07/02/23 22:55 Glucose 77 mg/dL (65-115) 07/02/23 22:55 POC Glucose 96 mg/dL (70-110) 07/02/23 23:23 Calculated Osmolality 274 mOsm/kg (285-295) L 07/02/23 22:55 Lactic Acid 1.7 mmol/L (0.5-2.2) 07/02/23 22:55 Calcium 9.1 mg/dL (8.5-10.5) 07/02/23 22:55 Total Bilirubin 0.7 mg/dL (0.15-1.2) 07/02/23 22:55 AST 20 U/L (0-40) 07/02/23 22:55 ALT 10 U/L (0-41) 07/02/23 22:55 Alkaline Phosphatase 85 U/L (40-130) 07/02/23 22:55 Total Protein 7.7 g/dL (6.6-8.7) 07/02/23 22:55 Albumin 4.2 g/dL (3.5-5.2) 07/02/23 22:55 Globulin 3.5 g/dL (1.3-4.6) 07/02/23 22:55 Procalcitonin 0.05 ng/mL (0-0.5) 07/02/23 22:55 Urine Color Yellow (Yellow) 07/03/23 02:23 Urine Appearance Clear (CLEAR) 07/03/23 02:23 Urine pH 6 (5-7) 07/03/23 02:23 Ur Specific [place] 1.010 (1.005-1.030) 07/03/23 02:23 Urine Protein Neg (Negative) 07/03/23 02:23 Urine Glucose (UA) Norm (Normal) 07/03/23 02:23 Urine Ketones Negative (Negative) 07/03/23 02:23 Urine Blood Neg (Negative) 07/03/23 02:23 Urine Nitrate Negative (Negative) 07/03/23 02:23 Urine Bilirubin Neg (Negative) 07/03/23 02:23 Urine Urobilinogen Norm mg/dL (Negative) 07/03/23 02:23 Ur Leukocyte Esterase Negative (Negative) 07/03/23 02:23 Urine Opiates Screen Negative ng/mL (Negative) 07/03/23 02:23 Ur Barbiturates Screen Negative ng/mL (Negative) 07/03/23 02:23 Ur Phencyclidine Scrn Negative ng/mL (Negative) 07/03/23 02:23 Ur Amphetamines Screen Negative ng/mL (Negative) 07/03/23 02:23 U Benzodiazepines Scrn Negative ng/mL (Negative) 07/03/23 02:23 Urine Cocaine Screen Negative ng/mL (Negative) 07/03/23 02:23 U Marijuana (THC) Screen Negative ng/mL (Negative) 07/03/23 02:23 All radiology interpretation(s) finalized by discharge Discharge Plan Discharge Admit Provider: Jose Huggins Prescriptions: No Action cholecalciferol (vitamin D3) 1,250 mcg (50,000 unit) capsule 50,000 unit PO .WEEKLY Rx Instructions: weekly on WEDNESDAY pantoprazole [Protonix] 40 mg Tablet,Delayed Release (Dr/Ec) 40 mg PO DAILY ibuprofen 200 mg Tablet 600 mg PO PRN PRN (Reason: Pain) albuterol sulfate 90 mcg/actuation HFA aerosol inhaler 2 puff INHALATION Q4H PRN (Reason: Shortness Of Breath) melatonin 10 mg Tablet 30 mg PO BEDTIME alprazolam 1 mg tablet 0.5 - 1 mg PO TID losartan 50 mg tablet 50 mg PO DAILY atorvastatin 80 mg tablet 80 mg PO BEDTIME loperamide 2 mg capsule 4 mg PO QID PRN (Reason: Diarrhea) trazodone 50 mg tablet 50 - 150 mg PO BEDTIME sertraline 100 mg tablet 200 mg PO DAILY topiramate 25 mg tablet 25 mg PO BID amlodipine 2.5 mg tablet 2.5 mg PO DAILY hydrocodone-acetaminophen 10-325 mg tablet 1 tab PO Q4H PRN (Reason: Pain) potassium chloride 20 mEq tablet,ER particles/crystals 20 meq PO BEDTIME hydralazine 50 mg tablet 50 mg PO QID bupropion HCl 150 mg tablet extended release 24 hr 150 mg PO .QAM hydrochlorothiazide 12.5 mg tablet 12.5 mg PO DAILY Coding Level of Care Code ED Injection Wax Molder for Oralia Garduno
--- NOTE | 2023-07-03 06:41 | MRR_ITS ---
PROCEDURE INFORMATION: Exam: MR Head Without Contrast Exam date and time: 07/03/2023 7:40 AM Age: 62 years old Clinical indication: Altered mental status/memory loss and speech disturbance; Confusion or disorientation; Dysphasia; Patient HX: HX of colon cancer; Additional info: Poss CVA, aphasia vs confusion TECHNIQUE: Imaging protocol: Magnetic resonance imaging of the head without contrast. COMPARISON: MR angio head wo con [id number] 07/03/2023 7:30 AM FINDINGS: Brain: There is periventricular white matter and bilateral centrum semiovale foci of high FLAIR signal consistent with chronic ischemic small vessel disease. No intracranial lesions. Cerebral ventricles: There is mild diffuse volume loss with mild ex vacuo dilatation of the lateral ventricles. Bones/joints: Unremarkable. Paranasal sinuses: Normal as visualized. No acute sinusitis. Mastoid air cells: Normal as visualized. No mastoid effusion. Orbital cavities: Unremarkable. Soft tissues: Unremarkable. MR/MR head wo con* [id number] IMPRESSION: 1. No acute infarct. 2. Chronic ischemic small vessel disease.
--- NOTE | 2023-07-03 06:41 | MRR_ITS ---
PROCEDURE INFORMATION: Exam: MRA Head Without Contrast; Arteriography Exam date and time: 07/03/2023 7:30 AM Age: 62 years old Clinical indication: Cognitive deficit and speech disturbance; Altered mental status; Dysphasia; Additional info: Poss CVA, aphasia vs confusion TECHNIQUE: Imaging protocol: Magnetic resonance angiography head without contrast. [id number]-[id number] (TOF) technique was utilized for this exam. Exam focused on the arteries. COMPARISON: CT head wo con* [id number] 07/02/2023 11:12 PM FINDINGS: ANTERIOR CIRCULATION: Right internal carotid artery: Intracranial segment is patent with no significant stenosis. No aneurysm. Right middle cerebral artery: No occlusion or significant stenosis. No aneurysm. Right anterior cerebral artery: No occlusion or significant stenosis. No aneurysm. Left internal carotid artery: Intracranial segment is patent with no significant stenosis. No aneurysm. Left middle cerebral artery: No occlusion or significant stenosis. No aneurysm. Left anterior cerebral artery: No occlusion or significant stenosis. No aneurysm. POSTERIOR CIRCULATION: Right vertebral artery: No occlusion or significant stenosis. No aneurysm. Left vertebral artery: No occlusion or significant stenosis. No aneurysm. Basilar artery: No occlusion or significant stenosis. No aneurysm. Right posterior cerebral artery: No occlusion or significant stenosis. No aneurysm. Left posterior cerebral artery: No occlusion or significant stenosis. No aneurysm. MR/MR angio head wo con [id number] IMPRESSION: No stenosis or occlusion.
--- NOTE | 2023-07-03 07:25 | PC.PHAR ---
Addendum entered by Xin Garcia 07/03/23 09:55: VERIFIED WITH [facility]: ALL MEDICATION LAST FILL DATES. AMLODIPINE 2.5 DAILY-12/29/22 90DS, ATORVASTATIN 80 MG AT BEDTIME-10/21/22 90DS, TOPIRAMATE 25MG TWICE DAILY-01/14/23 45DS. QUESTIONABLE. Original Note: WILL CALL [facility] WHEN [facility] OPEN TODAY FOR CURRENT MED LIST. PT SEEMS REALLY CONFUSED ABOUT CURRENT MEDS AND DOSAGE. 07/03/23
--- NOTE | 2023-07-03 10:39 | USCV_ITS ---
Milan Hua Age: 62 Gender: M : 1960 Exam Date: 07/03/2023 14:13 Ordering Phys: Srikanth Franks MD Technologist: Rc Pascual Exam Location: [facility] [place] Indication: syncope BP: 140 / 90 HR: Rhythm: Sinus Technical Quality: Suboptimal MEASUREMENTS (Male / Female) Normal Values 2D ECHO LVOT Diameter 2.1 cm LV Ejection Fraction MOD 2C 67.8 % IVC Diameter 2.0 cm M-MODE LA Ao Ratio MM 1.4 MV E Point Septal Separation 1.1 cm AV Cusp Separation MM 1.5 cm DOPPLER AV Peak Velocity 139.0 cm/s AV Area Cont Eq vti 2.9 cm squared MV Area PHT 5.0 cm squared Mitral E to A Ratio 0.6 FINDINGS Left Ventricle Normal left ventricular size, systolic function and wall thickness, with no regional wall motion abnormalities. Grade I/IV diastolic dysfunction (abnormal relaxation filling pattern), normal to mildly elevated filling pressures. Left ventricular ejection fraction is estimated at 60 %. Right Ventricle Normal right ventricular size and systolic function. Normal right ventricular systolic pressure. Right Atrium Mildly increased right atrial size. Left Atrium Mildly increased left atrial size. Mitral Valve Structurally normal mitral valve without significant stenosis or prolapse. There is no mitral regurgitation. Aortic Valve Structurally normal aortic valve without significant sclerosis or stenosis. There is no aortic regurgitation. Tricuspid Valve Structurally normal tricuspid valve without significant stenosis or regurgitation. Pulmonary artery systolic pressure is normal. Pulmonic Valve Pulmonic valve not well visualized. Pericardium Normal pericardium without effusion. Aorta Normal ascending aorta dimension. IVC The inferior vena cava appears normal. CONCLUSIONS Normal left ventricular size, systolic function and wall thickness, with no regional wall motion abnormalities. Grade I/IV diastolic dysfunction (abnormal relaxation filling pattern), normal to mildly elevated filling pressures. Left ventricular ejection fraction is estimated at 60 %. Previous study done 08/19/2018. There is no change. Dr. Rony Flores MD (Electronically Signed) Final Date: 03 July 2023 20:29 S
--- NOTE | 2023-07-03 10:51 | CTR_ITS ---
PROCEDURE INFORMATION: Exam: CT Orbits Without Contrast Exam date and time: 07/03/2023 11:27 AM Age: 62 years old Clinical indication: Injury or trauma; Other: Hit RT eye with toilet plunger; Blunt trauma (contusions or hematomas); Orbit/periorbital; Right; Additional info: Right eye trauma, toilet plunger hit right eye TECHNIQUE: Imaging protocol: Computed tomography of the orbits without contrast. Radiation optimization: All CT scans at this facility use at least one of these dose optimization techniques: automated exposure control; mA and/or kV adjustment per patient size (includes targeted exams where dose is matched to clinical indication); or iterative reconstruction. COMPARISON: MR head wo con* [id number] 07/03/2023 7:40 AM RADIATION DOSE METRICS: Total DLP (mGy-cm): 365.55 FINDINGS: Paranasal sinuses: There is mild mucosal disease of bilateral maxillary sinuses. Orbital cavities: Orbits are normal. Globes are unremarkable. Bones/joints: No acute fracture. Soft tissues: No significant facial soft tissue swelling. Vasculature: There are bilateral vertebral artery calcifications. Bilateral internal carotid artery calcifications involving cavernous segments. CT/CT orbit BI wo con* [id number] IMPRESSION: 1. No acute fracture or dislocation. 2. No large hematomas.
--- NOTE | 2023-07-03 10:54 | USR_ITS ---
PROCEDURE INFORMATION: Exam: US Duplex Bilateral Extracranial Arteries; Complete; Carotid Arteries Exam date and time: 07/03/2023 12:50 PM Age: 62 years old Clinical indication: Syncope and collapse TECHNIQUE: Imaging protocol: Real-time duplex ultrasound scan of the bilateral extracranial arteries combining nickerson scale, color Doppler and spectral waveform analysis with image documentation. Complete exam. Exam focused on the carotid arteries. COMPARISON: MR angio head wo con [id number] 07/03/2023 7:30 AM FINDINGS: Right common carotid artery: Unremarkable. No occlusion or stenosis. Waveforms are normal. Right internal carotid artery: Unremarkable. No occlusion or stenosis. Waveforms are normal. Right ICA/CCA ratio: Within normal limits. Right external carotid artery: No stenosis in the origin. Right vertebral artery: Unremarkable. Antegrade flow. Left common carotid artery: There is an atheromatous plaque at the mid left common carotid artery with moderate stenosis. Left internal carotid artery: Unremarkable. No occlusion or stenosis. Waveforms are normal. Left ICA/CCA ratio: Within normal limits. Left external carotid artery: No stenosis in the origin. Left vertebral artery: Unremarkable. Antegrade flow. US/CV carotid duplex BI* [id number] IMPRESSION: Atheromatous plaque of the left mid common carotid artery with moderate stenosis. No other artery significant stenosis. REFERENCES: SRU CRITERIA. The degree of internal carotid artery stenosis is based on criteria defined by the Society of Radiologists in Ultrasound (SRU). Normal is no stenosis. Mild is less than 50% stenosis. Moderate is 50-69% stenosis. Severe is greater than 69% stenosis to near occlusion. Near occlusion is a markedly narrowed lumen. Total occlusion is no detectable patent lumen.
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
[2023-07-03] MEDS: losartan 50 mg Tablet PO (12:09)
[2023-07-03] MEDS: sertraline 100 mg Tablet 200 MG PO (12:10)
[2023-07-03] MEDS: enoxaparin 40 mg/0.4 mL Syringe SUBCUT (12:10)
[2023-07-03] MEDS: amlodipine 10 mg Tablet PO (12:10)
[2023-07-03] MEDS: clopidogrel 75 mg Tablet PO (12:10)
[2023-07-03] MEDS: pantoprazole 40 mg SDV IVP (12:10)
[2023-07-03] MEDS: aspirin 81 mg EC Tablet PO (12:10)
[2023-07-03] MEDS: oxyCODONE 5 mg IR Tab/Cap 20 MG PO ×2 (12:11→18:05)
[2023-07-03 12:27] LABS: Glucose Point of Care 81 mg/dL (70-110)
[2023-07-03 12:31] LABS: INR 1.14 (0.8-1.2)
[2023-07-03 12:38] LABS: Lactic Sepsis W/Reflex 0.9 mmol/L (0.5-2.2)
--- NOTE | 2023-07-03 12:42 | ECG_ITS ---
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 Measurements Intervals [place] Rate: 81 P: 11 [place]: 144 QRS: 52 QRSD: 102 T: -11 QT: 415 QTc: 485 Interpretive Statements SINUS RHYTHM POSSIBLE LEFT ATRIAL ENLARGEMENT [-0.1mV P-WAVE IN V1/V2] POSSIBLE INFERIOR MYOCARDIAL INFARCTION , OF INDETERMINATE AGE [30 ms Q WAVE IN II/aVF] Compared to ECG 07/02/2023 22:58:32 Myocardial infarct finding now present T-wave abnormality no longer present Electronically Signed On 07-04-2023 7:50:46 ENGINEERING OPERATIONS LEADER by Rony Flores M.D. [id number]
[2023-07-03 12:45] LABS: Erythrocyte Sedimentation Rate 5 mm/hr (0-10)
[2023-07-03 12:46] LABS: Troponin(5th) Baseline 18 ng/L (0-15)
[2023-07-03 12:53] LABS: NT Pro B Type Natriuretic Pept 1523 pg/mL (0-125); Procalcitonin 0.05 ng/mL (0-0.5)
[2023-07-03 13:04] LABS: C Reactive Protein 6.9 mg/L (0.0-4.9)
--- NOTE | 2023-07-03 15:24 | ECG_ITS ---
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 Measurements Intervals [place] Rate: 82 P: 37 [place]: 139 QRS: 40 QRSD: 106 T: -12 QT: 413 QTc: 484 Interpretive Statements SINUS RHYTHM POSSIBLE LEFT ATRIAL ENLARGEMENT [-0.1mV P-WAVE IN V1/V2] PROBABLE INFERIOR MYOCARDIAL INFARCTION , OF INDETERMINATE AGE [35 ms Q WAVE IN II/aVF] MODERATE T-WAVE ABNORMALITY, CONSIDER ANTERIOR ISCHEMIA [-0.1+ mV T-WAVE IN V3/V4] Compared to ECG 07/03/2023 12:42:03 T-wave abnormality now present Possible ischemia now present Myocardial infarct finding still present Electronically Signed On 07-04-2023 7:51:09 REAL ESTATE OPERATIONS MANAGER by Rony Flores M.D. [id number]
[2023-07-03] MEDS: hyDRALAzine 50 mg Tablet PO ×3 (15:48→20:26)
[2023-07-03] MEDS: sodium chloride 0.9% 1,000 ML 75 ML IV (15:48)
[2023-07-03] MEDS: ALPRAZolam 0.5 mg Tablet PO ×2 (15:55→21:22)
[2023-07-03 16:49] LABS: Glucose Point of Care 117 mg/dL (70-110)
[2023-07-03] MEDS: topiramate 25 mg Tablet PO (18:05)
[2023-07-03] MEDS: atorvastatin 40 mg Tablet PO (20:26)
[2023-07-03 20:45] LABS: Glucose Point of Care 114 mg/dL (70-110)
[2023-07-03] MEDS: haloperidol inj 5 mg/mL INJ 1 mL 2 MG IM (23:31)
[2023-07-04] VITALS (50 sets, daily range): BP systolic 99–146; BP diastolic 64–121; PULSE 60–97; RESP 13–23; TEMP 36.3–36.9; O2SAT 91–99
[2023-07-04] MEDS: LORazepam 2 mg/mL INJ 10 mL MDV 0.5 MG IVP (00:19)
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
[2023-07-04] MEDS: valproic acid inj 500 MG in sodium chloride 0.9% 50 ML 55 MG IV (02:56)
--- NOTE | 2023-07-04 03:19 | PC.NURSE ---
Pt wheeled to ICU 6 by this nurse and MARYANN Mckeon. Received in ICU by MARYANN Lima and MARYANN Cerna. All personal belongings transported with patient.
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
[2023-07-04] MEDS: buPROPion XL (24 HR) 150 mg Tablet PO (05:10)
[2023-07-04] MEDS: oxyCODONE 5 mg IR Tab/Cap 20 MG PO ×4 (05:10→22:56)
[2023-07-04] MEDS: ALPRAZolam 0.5 mg Tablet PO (05:11)
[2023-07-04 07:33] LABS: Glucose Point of Care 117 mg/dL (70-110)
[2023-07-04 07:57] LABS: Glucose Point of Care 111 mg/dL (70-110)
[2023-07-04 08:08] LABS: Basophils # 0.1 10^3/uL (0.0-0.1); Eosinophils # 0.1 10^3/uL (0.0-0.8); Eosinophils % 1.7 %; Hematocrit 39.4 % (37-53); Lymphocytes % 33.8 %; Mean Corpuscular HGB Conc 32.2 g/dL (30-55); Mean Corpuscular Hemoglobin 29.1 pg (27-33); Mean Corpuscular Volume 90.4 fl (82-101); Mean Platelet Volume 10.1 fL (7.4-10.4); Monocytes # 0.8 10^3/uL (0.2-0.9); Neutrophils # 2.94 10^3/uL (1.8-7.7); Neutrophils % 49.8 %; Nucleated Red Blood Cells % 0 %; Platelet Count 184 10^3/cmm (157-399); Red Blood Count 4.36 10^6/uL (3.85-5.65); Red Cell Distribution Width 15.8 % (12.1-15.1); White Blood Count 5.91 10^3/uL (3.29-11.43)
[2023-07-04 08:37] LABS: Alanine Aminotransferase 7 U/L (0-41); Albumin Level 3.6 g/dL (3.5-5.2); Alkaline Phosphatase 73 U/L (40-130); Anion Gap 15.1 (5-19); Aspartate Amino Transferase 12 U/L (0-40); Blood Urea Nitrogen 17 mg/dL (8-23); Calcium 8.3 mg/dL (8.5-10.5); Carbon Dioxide 23 mmol/L (22-29); Chloride 103 mmol/L (98-107); Creatinine Clr Calc Pharmacy 97.5991; Globulin 2.8 g/dL (1.3-4.6); Glomerular Filtration Rate 76.2 mL/min (90-130); Glucose 111 mg/dL (65-115); Osmolality Calculated 288 mOsm/kg (285-295); Phosphorus 3.8 mg/dL (2.5-4.5); Potassium 3.1 mmol/L (3.5-5.1); Sodium 138 mmol/L (136-145); Thyroid Stimulating Hormone 1.15 uIU/mL (0.27-4.20); Total Bilirubin 0.3 mg/dL (0.15-1.2); Total Protein 6.4 g/dL (6.6-8.7)
[2023-07-04] MEDS: sertraline 100 mg Tablet 200 MG PO (09:15)
[2023-07-04] MEDS: clopidogrel 75 mg Tablet PO (09:15)
[2023-07-04] MEDS: hyDRALAzine 50 mg Tablet PO ×4 (09:16→20:05)
[2023-07-04] MEDS: losartan 50 mg Tablet PO (09:16)
[2023-07-04] MEDS: aspirin 81 mg EC Tablet PO (09:16)
[2023-07-04] MEDS: amlodipine 10 mg Tablet PO (09:16)
[2023-07-04] MEDS: topiramate 25 mg Tablet PO ×2 (09:42→17:05)
[2023-07-04 10:53] LABS: Glucose Point of Care 129 mg/dL (70-110)
[2023-07-04] MEDS: enoxaparin 40 mg/0.4 mL Syringe SUBCUT (11:00)
[2023-07-04] MEDS: pantoprazole 40 mg SDV IVP (11:00)
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
[2023-07-04] MEDS: ALPRAZolam 0.5 mg Tablet 1 MG PO ×2 (15:39→20:04)
[2023-07-04 17:04] LABS: Glucose Point of Care 92 mg/dL (70-110)
[2023-07-04] MEDS: sodium chloride 0.9% 1,000 ML 75 ML IV (17:08)
[2023-07-04] MEDS: amitriptyline 25 mg Tablet PO (20:05)
[2023-07-04] MEDS: atorvastatin 40 mg Tablet PO (20:05)
[2023-07-04 20:23] LABS: Glucose Point of Care 78 mg/dL (70-110)
--- NOTE | 2023-07-04 23:00 | PC.NURSE ---
Report called to MARYANN Kenyon. Patient transferred to [facility] via wheelchair and all belongings.
[2023-07-05] VITALS (8 sets, daily range): BP systolic 130–147; BP diastolic 77–88; PULSE 72–80; RESP 16–18; TEMP 36.6–36.8; O2SAT 95
[2023-07-05 03:21] LABS: Basophils % 0.7 %; Eosinophils # 0.2 10^3/uL (0.0-0.8); Eosinophils % 2.5 %; Hematocrit 38.1 % (37-53); Lymphocytes % 32.6 %; Mean Corpuscular HGB Conc 32.3 g/dL (30-55); Mean Corpuscular Hemoglobin 29.4 pg (27-33); Mean Corpuscular Volume 91.1 fl (82-101); Mean Platelet Volume 9.9 fL (7.4-10.4); Monocytes # 0.7 10^3/uL (0.2-0.9); Monocytes % 10.9 %; Neutrophils # 3.21 10^3/uL (1.8-7.7); Neutrophils % 52.6 %; Nucleated Red Blood Cells % 0 %; Platelet Count 160 10^3/cmm (157-399); Red Blood Count 4.18 10^6/uL (3.85-5.65); White Blood Count 6.08 10^3/uL (3.29-11.43)
[2023-07-05 03:41] LABS: Alanine Aminotransferase 7 U/L (0-41); Albumin Level 3.6 g/dL (3.5-5.2); Alkaline Phosphatase 64 U/L (40-130); Anion Gap 11.1 (5-19); Aspartate Amino Transferase 9 U/L (0-40); Blood Urea Nitrogen 13 mg/dL (8-23); Calcium 8.4 mg/dL (8.5-10.5); Carbon Dioxide 24 mmol/L (22-29); Chloride 107 mmol/L (98-107); Creatinine Clr Calc Pharmacy 108.4435; Globulin 2.6 g/dL (1.3-4.6); Glomerular Filtration Rate 86.1 mL/min (90-130); Glucose 103 mg/dL (65-115); Magnesium 1.8 mg/dL (1.7-2.3); Osmolality Calculated 288 mOsm/kg (285-295); Phosphorus 3.2 mg/dL (2.5-4.5); Potassium 3.1 mmol/L (3.5-5.1); Sodium 139 mmol/L (136-145); Total Bilirubin 0.3 mg/dL (0.15-1.2); Total Protein 6.2 g/dL (6.6-8.7)
[2023-07-05] MEDS: buPROPion XL (24 HR) 150 mg Tablet PO (05:03)
[2023-07-05] MEDS: oxyCODONE 5 mg IR Tab/Cap 20 MG PO ×2 (05:03→11:12)
[2023-07-05 06:59] LABS: Glucose Point of Care 97 mg/dL (70-110)
[2023-07-05] MEDS: acetaminophen 325 mg Tablet 650 MG PO (08:51)
[2023-07-05] MEDS: topiramate 25 mg Tablet PO (08:52)
[2023-07-05] MEDS: clopidogrel 75 mg Tablet PO (08:52)
[2023-07-05] MEDS: losartan 50 mg Tablet PO (08:52)
[2023-07-05] MEDS: ALPRAZolam 0.5 mg Tablet 1 MG PO (08:52)
[2023-07-05] MEDS: sertraline 100 mg Tablet 200 MG PO (08:52)
[2023-07-05] MEDS: hyDRALAzine 50 mg Tablet PO (08:53)
[2023-07-05] MEDS: amlodipine 10 mg Tablet PO (08:53)
[2023-07-05] MEDS: aspirin 81 mg EC Tablet PO (08:53)
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
[2023-07-05] MEDS: potassium chloride ER 20 mEq Tablet 40 MEQ PO (10:05)
--- NOTE | 2023-07-05 10:18 | P.DS_ITS ---
Discharge Providers Date of Admission: 07/03/23 06:40 Date of Discharge: July 05, 2023 Attending Provider at Admission: Jose Huggins Attending Provider at Discharge: Pio Beasley MD Primary Care Provider: Mandeep Quezada Diagnoses at Discharge Discharge Diagnosis (1) Acute encephalopathy: Status: Acute (2) Hypertension: Status: Acute Qualifiers: Hypertension type: unspecified Qualified Code(s): I10 - Essential (primary) hypertension (3) Hyperlipidemia: Status: Acute Qualifiers: Hyperlipidemia type: unspecified Qualified Code(s): E78.5 - Hyperlipidemia, unspecified (4) Acute right eye pain: Status: Acute (5) TIA (transient ischemic attack): Status: Acute (6) Syncope and collapse: Status: Acute (7) Orthostatic hypotension: Status: Acute (8) Agitation: Status: Acute Reason for Visit Reason for Visit: AMS Hospital Course Hospital Course Michael Hua is a 62-year-old male with a history of recurrent CVAs, diabetes, hypertension, hyperlipidemia, and migraines who presented with bilateral blurred vision after hitting his head with toilet plunger. Acute stroke was considered but ruled out with serial imaging. Presentation consistent with transient ischemic attack. Aspirin was added to his regiment for an additional 3 weeks of DAPT. Hospital course was complicated by acute encephalopathy/agitation suspected secondary to underlying night terrors and/or PTSD which resolved prior to discharge. His vision remains blurry concerning for ocular abnormalities. Local aircraft stress analyst was contacted and patient is to be evaluated on 07/06 in their clinic for further ocular/retinal evaluation. Patient discharged home in stable condition. He is also to follow-up with his primary care provider for further care. Physical Exam Narrative: General: Patient is awake and alert. Head: Normocephalic. Neck: No JVD. Cardiovascular: RRR. No gallops. No murmurs. Lungs: Clear to auscultation, no use of accessory muscles, no crackles or wheezes. Skin: No jaundice. No rashes. Abdomen: Normal bowel sounds, abdomen soft and nontender. Musculoskeletal: No swollen or erythematous joints. Neurological: Moves all 4 extremities. No myoclonus. Discharge Data Studies Completed and Pending Completed Studies During Hospitalization Category Date Time Status CT head wo con* [id number] Stat Cat Scan 07/02/23 22:[address] orbit BI wo con* [id number] Stat Cat Scan 07/03/23 10:51 Completed XR chest 1V portable [id number] Stat Exams 07/02/23 22:55 Completed MR head wo con* [id number] Routine MRI 07/03/23 06:41 Completed MRA head [MR angio head wo con [id number]] Routine MRI 07/03/23 06:41 Completed CV carotid duplex BI* [id number] Routine Ultrasound 07/03/23 10:54 Completed CV. echo complete* [id number] Routine Ultrasound 07/03/23 10:39 Completed Pending at discharge Category Date Time Status Complete Blood Count w/Auto AM LABS Lab 07/06/23 04:00 Ordered Comprehensive Metabolic Panel AM LABS Lab 07/06/23 04:00 Ordered Magnesium AM LABS Lab 07/06/23 04:00 Ordered Phosphorus AM LABS Lab 07/06/23 04:00 Ordered Radiology Impressions Chest X-Ray 07/02/23 22:55 IMPRESSION: Unchanged, a few, < 8 mm, radiopaque nodules at right mid lung and lung base, corresponding to calcified granulomas on CT. Head CT 07/02/23 22:55 IMPRESSION: 1. Moderate cerebral volume loss. Mild hypodensities at bilateral periventricular white matter, suggesting microvascular ischemic changes. 2. Atherosclerosis. Head MRI 07/03/23 06:41 IMPRESSION: 1. No acute infarct. 2. Chronic ischemic small vessel disease. Head MRA 07/03/23 06:41 IMPRESSION: No stenosis or occlusion. Orbit CT 07/03/23 10:51 IMPRESSION: 1. No acute fracture or dislocation. 2. No large hematomas. Carotid Doppler Study 07/03/23 10:54 IMPRESSION: Atheromatous plaque of the left mid common carotid artery with moderate stenosis. No other artery significant stenosis. REFERENCES: SRU CRITERIA. The degree of internal carotid artery stenosis is based on criteria defined by the Society of [employer]iologists in Ultras[employer] (SRU). Normal is no stenosis. Mild is less than 50% stenosis. Moderate is 50-69% stenosis. Severe is greater than 69% stenosis to near occlusion. Near occlusion is a markedly narrowed lumen. Total occlusion is no detectable patent lumen. Laboratory Results WBC 6.08 10^3/uL (3.29-11.43) 07/05/23 03:06 RBC 4.18 10^6/uL (3.85-5.65) 07/05/23 03:06 Hgb 12.30 g/dL (11.27-16.99) 07/05/23 03:06 Hct 38.1 % (37-53) 07/05/23 03:06 MCV 91.1 fl (82-101) 07/05/23 03:06 MCH 29.4 pg (27-33) 07/05/23 03:06 MCHC 32.3 g/dL (30-55) 07/05/23 03:06 RDW 16.0 % (12.1-15.1) H 07/05/23 03:06 Plt Count 160 10^3/cmm (157-399) 07/05/23 03:06 MPV 9.9 fL (7.4-10.4) 07/05/23 03:06 Neut % (Auto) 52.6 % 07/05/23 03:06 Lymph % (Auto) 32.6 % 07/05/23 03:06 [place] % (Auto) 10.9 % 07/05/23 03:06 Eos % (Auto) 2.5 % 07/05/23 03:06 Baso % (Auto) 0.7 % 07/05/23 03:06 Neut # (Auto) 3.21 10^3/uL (1.8-7.7) 07/05/23 03:06 Lymph # (Auto) 2.0 10^3/uL (0.8-4.8) 07/05/23 03:06 [place] # (Auto) 0.7 10^3/uL (0.2-0.9) 07/05/23 03:06 Eos # (Auto) 0.2 10^3/uL (0.0-0.8) 07/05/23 03:06 Baso # (Auto) 0.0 10^3/uL (0.0-0.1) 07/05/23 03:06 Nucleated RBC % (auto) 0 % 07/05/23 03:06 Nucleated RBCs # 0.0 /100WBC 07/05/23 03:06 ESR 5 mm/hr (0-10) 07/03/23 12:09 PT 14.90 SECONDS (12.1-14.9) 07/03/23 12:09 INR 1.14 (0.8-1.2) 07/03/23 12:09 APTT 21.0 SECONDS (23.9-36.7) L 07/02/23 22:55 Sodium 139 mmol/L (136-145) 07/05/23 03:06 Potassium 3.1 mmol/L (3.5-5.1) L 07/05/23 03:06 Chloride 107 mmol/L (98-107) 07/05/23 03:06 Carbon Dioxide 24 mmol/L (22-29) 07/05/23 03:06 Anion Gap 11.1 (5-19) 07/05/23 03:06 BUN 13 mg/dL (8-23) 07/05/23 03:06 Creatinine 0.9 mg/dL (0.7-1.2) 07/05/23 03:06 GFR Calculation 86.1 mL/min (90-130) L 07/05/23 03:06 Glucose 103 mg/dL (65-115) 07/05/23 03:06 POC Glucose 97 mg/dL (70-110) 07/05/23 06:44 Calculated Osmolality 288 mOsm/kg (285-295) 07/05/23 03:06 Lactic Acid 0.9 mmol/L (0.5-2.2) 07/03/23 12:09 Calcium 8.4 mg/dL (8.5-10.5) L 07/05/23 03:06 Phosphorus 3.2 mg/dL (2.5-4.5) 07/05/23 03:06 Magnesium 1.8 mg/dL (1.7-2.3) 07/05/23 03:06 Total Bilirubin 0.3 mg/dL (0.15-1.2) 07/05/23 03:06 AST 9 U/L (0-40) 07/05/23 03:06 ALT 7 U/L (0-41) 07/05/23 03:06 Alkaline Phosphatase 64 U/L (40-130) 07/05/23 03:06 Troponin T Baseline 18 ng/L (0-15) H 07/03/23 12:09 Troponin T 120 Minute 21.30 ng/L (0-15) H 07/03/23 16:37 Delta Troponin T 3.30 ABS# (0-10) 07/03/23 16:37 Troponin T Hi Sens 6Hr 23.00 ng/L (0-15) H 07/03/23 18:29 Troponin T Hi Sens 6Hr Delta 5.00 ng/L (0-12) 07/03/23 18:29 C-Reactive Protein 6.9 mg/L (0.0-4.9) H 07/03/23 12:09 NT-Pro-B Natriuret Pep 1523 pg/mL (0-125) H 07/03/23 12:09 Total Protein 6.2 g/dL (6.6-8.7) L 07/05/23 03:06 Albumin 3.6 g/dL (3.5-5.2) 07/05/23 03:06 Globulin 2.6 g/dL (1.3-4.6) 07/05/23 03:06 Procalcitonin 0.05 ng/mL (0-0.5) 07/03/23 12:09 TSH 1.15 uIU/mL (0.27-4.20) 07/04/23 07:57 Urine Color Yellow (Yellow) 07/03/23 02:23 Urine Appearance Clear (CLEAR) 07/03/23 02:23 Urine pH 6 (5-7) 07/03/23 02:23 Ur Specific [place] 1.010 (1.005-1.030) 07/03/23 02:23 Urine Protein Neg (Negative) 07/03/23 02:23 Urine Glucose (UA) Norm (Normal) 07/03/23 02:23 Urine Ketones Negative (Negative) 07/03/23 02:23 Urine Blood Neg (Negative) 07/03/23 02:23 Urine Nitrate Negative (Negative) 07/03/23 02:23 Urine Bilirubin Neg (Negative) 07/03/23 02:23 Urine Urobilinogen Norm mg/dL (Negative) 07/03/23 02:23 Ur Leukocyte Esterase Negative (Negative) 07/03/23 02:23 Urine Opiates Screen Negative ng/mL (Negative) 07/03/23 02:23 Ur Barbiturates Screen Negative ng/mL (Negative) 07/03/23 02:23 Ur Phencyclidine Scrn Negative ng/mL (Negative) 07/03/23 02:23 Ur Amphetamines Screen Negative ng/mL (Negative) 07/03/23 02:23 U Benzodiazepines Scrn Negative ng/mL (Negative) 07/03/23 02:23 Urine Cocaine Screen Negative ng/mL (Negative) 07/03/23 02:23 U Marijuana (THC) Screen Negative ng/mL (Negative) 07/03/23 02:23 Vitals Last Vital Signs Temp 98.2 F 07/05/23 08:00 Pulse 76 07/05/23 08:00 Resp 16 07/05/23 08:00 BP 130/82 07/05/23 08:52 Pulse Ox 95 07/05/23 08:00 O2 Del Method Room Air 07/04/23 19:52 O2 Flow Rate 99 07/04/23 07:42 Discharge Plan Discharge Patient Disposition: Home Condition: Fair Prescriptions: New aspirin 81 mg Tablet,Delayed Release (Dr/Ec) 81 mg PO DAILY 21 Days Qty: 21 0RF Continued pantoprazole [Protonix] 40 mg Tablet,Delayed Release (Dr/Ec) 40 mg PO DAILY ibuprofen 200 mg Tablet 600 mg PO PRN PRN (Reason: Pain) melatonin 10 mg Tablet 30 mg PO BEDTIME alprazolam 1 mg tablet 0.5 - 1 mg PO TID losartan 50 mg tablet 50 mg PO DAILY atorvastatin 80 mg tablet 80 mg PO BEDTIME sertraline 100 mg tablet 200 mg PO DAILY topiramate 25 mg tablet 25 mg PO BID hydralazine 50 mg tablet 50 mg PO QID bupropion HCl 150 mg tablet extended release 24 hr 150 mg PO QAM clopidogrel 75 mg tablet 75 mg PO DAILY oxycodone 20 mg tablet 20 mg PO Q6H PRN (Reason: Pain, Severe) baclofen 5 mg tablet 5 - 10 mg PO TID PRN (Reason: Pain) Changed amlodipine 2.5 mg tablet 5 mg PO DAILY 30 Days Qty: 30 0RF Discharge Orders: Discharge Order (Routine); Ordered 07/05/23 Ordered By: Pio Beasley Referrals: Mandeep Quezada [Primary Care Provider] - 07/08/23 11:00 am Monico Terry MD [Physician] - 07/06/23 11:00 am (Appt w/ Dr Richy Terry) Discharge Diet: Advance as tolerated and Usual diet Discharge Activity: Resume usual activity, Increase activity as tolerated and Limit activity as instructed Patient Instructions: Aspirin (By mouth), Amlodipine (By mouth), Retinal Detachment (DC), Altered Mental Status (ED), Encephalopathy (DC) Activity Restrictions/Additional Instructions: 1. No driving or operating machinery until cleared by eye doctors. 2. Keep appointment with [facility] on 07/06/2023. 3. Follow-up with PCP 4. Take medications as prescribed. Discharge Attestations Time Spent in Discharge Care*: greater than 30 min Quality Metrics Clinical Quality Measures [ No reported AMI, CVA or VTE this stay] Coding Level of Care Code Acute Code for Chg Fwd Diagnoses Acute encephalopathy G93.40 Hypertension, unspecified type I10 Hypertension type: unspecified Hyperlipidemia, unspecified hyperlipidemia type E78.5 Hyperlipidemia type: unspecified Acute right eye pain H57.11 TIA (transient ischemic attack) G45.9 Syncope and collapse R55 Orthostatic hypotension I95.1 Agitation R45.1
--- NOTE | 2023-07-05 10:34 | PC.NURSE ---
Called prescriptions into [facility] meds to bed. Will deliver before discharge.
[2023-07-05 10:45] LABS: Glucose Point of Care 111 mg/dL (70-110)
[2023-07-05] MEDS: enoxaparin 40 mg/0.4 mL Syringe SUBCUT (11:46)
[2023-07-05] MEDS: pantoprazole 40 mg SDV IVP (11:50)
== END 2023-07-05 11:30 | disposition home or self-care (01) ==
LOC: ER 23:02 → MEDSURG 07-03 06:45 → ICU 07-04 03:23 → MEDSURG 07-04 22:43
PROVIDERS: Family Medicine; Admitting Provider Internal Medicine; Emergency Provider Internal Medicine; PCP Family Medicine; Visit Provider Internal Medicine
DX: G93.40 Encephalopathy, unspecified (principal); I10 Essential (primary) hypertension; E78.5 Hyperlipidemia, unspecified; H57.11 Ocular pain, right eye; G45.9 Transient cerebral ischemic attack, unspecified; I95.1 Orthostatic hypotension; R45.1 Restlessness and agitation; Z86.73 Personal history of transient ischemic attack (TIA), and cerebral infarction without residual deficits; E11.9 Type 2 diabetes mellitus without complications; G43.909 Migraine, unspecified, not intractable, without status migrainosus; H53.8 Other visual disturbances; I16.0 Hypertensive urgency; F17.200 Nicotine dependence, unspecified, uncomplicated
CPT/HCPCS: 36415; 36416; 70450; 70480; 70544; 70551; 71045; 80053; 80306; 81003; 82962; 83605; 83735; 83880; 84100; 84145; 84443; 84484; 85025; 85610; 85651; 85730; 86140; 92523; 92610; 93005; 93306; 93880; 94664; 96365; 96372; 96375; 96376; 97110; 97116; 97162; 97165; 97530; 97760; 99285; C9113; G0378; J1630; J1650; J2060; J3490; J7030; L0637